=== PATIENT | male | born 1935 | race Caucasian/White ===

== ENCOUNTER → 2016-11-06 | Outpatient (CLI) | payer OTHER ==
[~2016-11-06] MED LIST: ACET-1256 PO; AMOX500C3 PO; ATOR10TA88 PO; CLC100 PO; CRD4 PO; CRDCD240 PO; GABA-112 PO; HYDR-5688 PO; LSX20 PO; LVNIS40 SQ; METO50TA16 PO; MULT-589 PO; SYMIN/8045 INH; TYL325X PO; ULT50X PO; WARF3TAB6 PO
== END | disposition home or self-care (01) ==
LOC: C.RDSM 14:08
PROVIDERS: ATTEND Physical Medicine & Rehabilitation Sports Medicine
DX: M17.11 Unilateral primary osteoarthritis, right knee (principal)

== ENCOUNTER 2016-12-31 05:06 | Inpatient (IN) | payer OTHER ==
[2016-12-05 15:10] VITALS: BMI 40.0
--- NOTE | 2016-12-05 15:56 | PAT Medication Instructions ---
Service Date Dec 05, 2016. Current Home Medication List Acetaminophen (Tylenol), 1,000 MG PO BID Amoxicillin (Amoxil), 2,000 MG PO UD Atorvastatin (Lipitor), 10 MG PO QAM Budesonide/Formoterol Fumarate (Symbicort 80/4.5 Inhaler), 2 PUFFS INH QAM Diltiazem Hcl Cd (Cardizem Cd *), 240 MG PO QAM Doxazosin Mesylate (Cardura *), 4 MG PO QAM Furosemide (Lasix *), 20 MG PO QAM Gabapentin (Neurontin), 50 MG PO BID Metoprolol Tartrate (Lopressor) (Lopressor), 75 MG PO BID Warfarin Sod (Jantoven), 3 MG PO Q2D Warfarin Sod (Jantoven), 1.5 MG PO Q2D Medication Instructions For Your Scheduled Surgery Amoxicillin (Amoxil), 2,000 MG PO UD (takes only before dental procedures) Warfarin Sod (Jantoven) (check with [facility] instructions) - Hold the following medications the morning of surgery: Furosemide (Lasix *), 20 MG PO QAM - Take the following medications the morning of surgery with a sip of water: Metoprolol Tartrate (Lopressor) (Lopressor), 75 MG PO BID Gabapentin (Neurontin), 50 MG PO BID Atorvastatin (Lipitor), 10 MG PO QAM Budesonide/Formoterol Fumarate (Symbicort 80/4.5 Inhaler), 2 PUFFS INH QAM Diltiazem Hcl Cd (Cardizem Cd *), 240 MG PO QAM Doxazosin Mesylate (Cardura *), 4 MG PO QAM Acetaminophen (Tylenol), 1,000 MG PO BID (if needed) - Take the following medications as scheduled the night before surgery: Metoprolol Tartrate (Lopressor) (Lopressor), 75 MG PO BID Gabapentin (Neurontin), 50 MG PO BID Acetaminophen (Tylenol), 1,000 MG PO BID (if needed) If you have any questions please call us at [phone] or [phone] ( [place]) or [phone]
--- NOTE | 2016-12-05 16:34 | DIAGNOSTIC IMAGING REPORT ---
CHEST PREADMISSION(PA/LAT) HISTORY: Preop. COMPARISON: Chest 06/13/2014. FINDINGS: The lungs are clear. Cardiac silhouette is normal in size. No pleural effusions. No pneumothorax. IMPRESSION: No acute process. Electronically signed by: Jordan Carr M.D. 12/05/2016 4:32 PM Dictated Date/Time: 12/05/2016 4:31 PM
[2016-12-05 16:36] LABS: BASO % 0.2 %; BASO ABS # 0.01 K/uL (0-0.2); COMPLETE YES; HEMATOCRIT 33.9 % (42-52); IG% 0.2 %; LYMPH % 21.6 %; LYMPH ABS # 0.87 K/uL (1.2-3.4); MEAN CELL VOLUME 98.5 fL (80-100); MEAN CORPUSCULAR HEMOGLOBIN 31.7 pg (25-34); MEAN CORPUSCULAR HGB CONC 32.2 g/dl (32-36); MEAN PLATELET VOLUME 9.6 fL (7.4-10.4); MONO % 12.2 %; NEUT % 61.8 %; PLATELET COUNT 151 K/uL (130-400); RED BLOOD COUNT 3.44 M/uL (4.7-6.1); WHITE BLOOD COUNT 4.02 K/uL (4.8-10.8)
[2016-12-05 16:42] LABS: INR 2.1 (0.9-1.1); PARTIAL THROMBOPLASTIN RATIO 1.3; PROTHROMBIN TIME (PATIENT) 23.3 SECONDS (9.0-12.0)
[2016-12-05 17:10] LABS: ALT/SGPT 21 U/L (12-78); AST/SGOT 16 U/L (15-37); BLOOD UREA NITROGEN 29 mg/dl (7-18); BUN/CREATININE RATIO 19.4 (10-20); CARBON DIOXIDE 30 mmol/L (21-32); CHLORIDE 110 mmol/L (98-107); GLUCOSE 92 mg/dl (70-99); POTASSIUM 4.6 mmol/L (3.5-5.1); SODIUM 143 mmol/L (136-145)
[2016-12-05 17:12] LABS: ALB/GLOB RATIO 1.1 (0.9-2); ALKALINE PHOSPHATASE 66 U/L (45-117)
--- NOTE | 2016-12-06 10:32 | HISTORY & PHYSICAL EXAMINATION ---
DATE OF ADMISSION: 12/31/2016 PREOPERATIVE DIAGNOSIS: Knee pain. HISTORY OF PRESENT ILLNESS: This 81-year-old male presents to clinic today for his preoperative history and physical. The patient complains of 2-3 year history of persistent right knee pain. Pain increases with ambulation. The patient states that at this point, he has to use a cane when ambulating. He states that he has failed conservative treatment with steroid injections and viscosupplementation. The patient also states he noticed bloody appearance of his right lower extremity. The patient denies numbness, tingling or swelling in the right lower extremity. He also denies chest pain, shortness breath, fever, chills, sweats, nausea, vomiting or diarrhea at this time. PAST SURGICAL HISTORY: Left total knee arthroplasty, tonsillectomy/adenoidectomy, Mohs' procedure, multiple shave biopsies of skin, renal calculi removal with cystoscopy and bilateral cataract removal. PAST MEDICAL HISTORY: Atrial fibrillation, hyperlipidemia, hypertension, lymphoma, polycystic kidney disease, seborrheic keratosis, actinic keratosis, COPD, squamous cell carcinoma of the ear and multiple skin nevi. FAMILY HISTORY: Mother, hypertension and transient ischemic attacks. Father, pulmonary embolism. ALLERGIES: The patient has no known drug allergies. CURRENT MEDICATIONS: Amoxicillin 500 mg oral capsule 4 caps as indicated 1 hour prior to dental procedures, atorvastatin to have statin 10 mg oral tablet at bedtime, diltiazem hydrochloride CD 240 mg/24 hour oral capsule extended release 1 cap daily, doxazosin 4 mg oral tablet daily, furosemide 20 mg oral tablet 1 tab daily, metoprolol tartrate 50 mg oral tablet 1 tab 3 times daily, Symbicort unknown dosage inhaled in the morning, Tylenol 500 mg oral tablet 2 tabs by mouth 3 times daily, warfarin 3 mg oral tablet 1 tab daily and gabapentin 50 mg oral capsule 1 cap twice daily. SOCIAL HISTORY: The patient states that he is a 1 pack per day smoker for 50 years, but quit smoking in 2005. He states he rarely consumes alcohol and denies any illicit drug use. PHYSICAL EXAMINATION: SKIN: The patient's skin is normal in appearance. No open skin lesions or discharge. EYES: Pupils are equal and react to light and accommodating. Extraocular movements are intact. EARS: Canals clear of cerumen. Tympanic membranes are intact bilaterally with no bulging or effusion. NOSE: Turbinates are pink and boggy in appearance with no appreciable rhinorrhea. THROAT: Posterior oropharynx is clear without signs of edema, erythema or exudate. CARDIOVASCULAR: The patient has an irregularly irregular rate and rhythm, but no appreciable murmurs or gallops. LUNGS: Auscultation of the lung mcgee reveals clear breath sounds throughout with no wheezing, rales or rhonchi. ABDOMEN: Obese, nondistended, and nontender with hypoactive bowel sounds. EXTREMITIES: Right knee: The patient is able to extend 80 degrees and flex to 124 degrees. He has mild crepitation at passive range of motion of the knee joint. He experiences a medial joint line tenderness upon palpation with the knee placed in a flexed position. The patient's right patella was unable manipulated due to arthritic changes within the patellofemoral joint. The patient has no edema, erythema, ecchymosis, warmth or palpable knee deformity. No varus or valgus laxity. Negative AP drawer sign. Negative Nay test. He does have an obvious varus deformity of the right knee joint. Otherwise, right calf is soft, supple, and nontender to palpation. He experiences no referred knee pain with dorsi and plantar flexion of the right foot actively and passively against resistance. The patient is neurovascularly intact in the right lower extremity. Peripheral pulses are palpable. Cap refill is brisk. All other extremities are normal in appearance with appropriate range of motion and strength. NEUROLOGICAL: Cranial nerves II-XII are intact with no motor or sensory deficits. PSYCHOLOGICAL/GENERAL: The patient is alert and oriented x3 with proper grooming and hygiene. DIAGNOSIS: Right knee osteoarthritis. PROCEDURE: Right total knee arthroplasty. RADIOGRAPHIC IMAGING: Standing views show marked joint space narrowing of the right medial compartment with an obvious varus deformity of the knee joint. PLAN: The patient is scheduled to undergo this procedure with Dr. Bob Gavin at the [facility] on 12/31/2016. Risks and complications of the surgery such as infection, bleeding, pain, scarring, nerve and blood vessel damage, weakness, wound problems, stiffness, incomplete relief of symptoms, heart attack, stroke, , hardware failure, loosening wear, fracture, blood clots, and embolism were explained to the patient. He understands and agrees and consent to perform the procedure was obtained. 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 The patient will be scheduled for his postoperative followup visit with Dr. Gavin on 01/14/2017 at 02:00 p.m. The patient states that at this time, he is not sure whether he will do home therapy or go to [facility] for rehabilitation. He states that most likely, he may request to go to [facility], but he will discuss this with the family service caseworker at the hospital after surgery. The patient states that he will continue his therapy for 4-6 weeks in our clinic. The patient states that he will bring a walker with him, which he used after his last knee replacement. He is advised that he will be provided with a prescription for pain medication upon discharge from the hospital along with a prescription for physical therapy and INR checks biweekly. The patient states that he is scheduled to meet with the Coumadin clinic to discuss holding the Coumadin prior to the procedure. The patient was advised that after the procedure, there is a possibility that he may need Lovenox injections to reach therapeutic range along with the use of his oral Coumadin. The patient was advised that he will also use ERNESTO stockings for 4-6 weeks after the procedure to prevent blood clots or embolus. The patient states he does not need a handicap placard for scar because he already has one. He understands that he will need to take antibiotics prior to any type of dental procedure cleaning. The patient verbalized understanding of all information provided at today's visit and the care he has received. He states that he will obtain the necessary preoperative testing prior to his preanesthesia clearance appointment set for 02:30 p.m. at the hospital this afternoon. AUDI
[~2016-12-31] VITALS: Ht 167.6 cm; Wt 111.8 kg
[2016-12-31] VITALS (9 sets, daily range): BP systolic 115–153; BP diastolic 73–92; PULSE 70–79; TEMP 36.3–36.8; O2SAT 92–97; Ht 167.6 cm; Wt 111.8 kg
[~2016-12-31 05:06] MED LIST changes: +ATOR10TA82 PO; -ATOR10TA88 PO; -CLC100 PO; -HYDR-5688 PO; -LVNIS40 SQ; -MULT-589 PO; -TYL325X PO; -ULT50X PO
[2016-12-31] MEDS ORDERED: LACTATED RINGER'S 1000ML 1,000 ML IV SCH (06:00)
[2016-12-31] MEDS ORDERED: CLONIDINE HCL 0.1 MG/24 HR TRANSDERM SYS TD SCH (06:00)
[2016-12-31] MEDS ORDERED: OXYCODONE HCL 10 MG TABCR (OXYCONTIN) PO SCH (06:00)
[2016-12-31] MEDS ORDERED: CEFAZOLIN 2000 MG/60 ML D5W 60 ML IV SCH (06:00)
[2016-12-31] MEDS ORDERED: ROPIVACAINE 5MG/ML 30 ML 100 MG, MoRPHine SULFATE 4 MG, EpINEphrine INJ 1MG/ML AMP 0.2 ... INFIL SCH ×4 (06:00)
[2016-12-31] MEDS ORDERED: TRAMADOL HCL 50 MG TAB PO SCH (06:00)
[2016-12-31] MEDS ORDERED: ACETAMINOPHEN 500 MG TAB PO SCH (06:00)
[2016-12-31] MEDS ORDERED: LACTATED RINGER'S 1000ML IV SCH (06:00)
[2016-12-31] MEDS ORDERED: GABAPENTIN 300 MG CAP PO SCH (06:00)
[2016-12-31] MEDS ORDERED: DEXAMETHASONE 4 MG TAB PO SCH (06:00)
[2016-12-31] MEDS ORDERED: BUPIVACAINE LIPOSOME 266 MG, BUPIVACAINE/EPINEPHRINE INJ 50 ML, SODIUM CHLORIDE 0.9% PF... INFIL SCH ×3 (06:00)
[2016-12-31] MEDS ORDERED: CeleBREX 200 MG CAP PO SCH ×2 (06:00→21:00)
[2016-12-31 06:19] LABS: INR 1.1 (0.9-1.1)
[2016-12-31] MEDS ORDERED: MIDAZOLAM HCL 1 MG/ML 2ML VIAL ONE (06:19)
[2016-12-31] MEDS ORDERED: PROPOFOL IV EMULSION 10 MG/ML 20 ML VIAL IV ONE ×5 (06:19→09:20)
[2016-12-31] MEDS ORDERED: LIDOCAINE HCL 2% 2 ML VIAL (20MG/ML) ONE (06:19)
[2016-12-31] MEDS ORDERED: BUPIVACAINE 0.5 % 5 MG/1 ML PF 10ML VIAL ONE (06:24)
[2016-12-31] MEDS ORDERED: ROPIVACAINE 0.5% 5 MG/ML 30 ML VIAL ONE (06:24)
--- NOTE | 2016-12-31 06:35 | History & Physical Bridge Note ---
H&P Re-Evaluation Bridge Note: I have examined the patient, reviewed the History & Physical and in the interval since the performance of the History & Physical I have noted the following changes of clinical significance: No changes noted
[2016-12-31] MEDS ORDERED: BUPIVACAINE/EPINEPHRINE 0.25% 1:200,000 30 ML VIAL ONE (06:46)
[2016-12-31] MEDS ORDERED: BUPIVACAINE LIPOSOME 1/3% 266 MG/20 ML VIAL INFIL ONE (06:46)
[2016-12-31] MEDS ORDERED: SODIUM CHLORIDE 0.9% PF 50 ML VIAL ONE (06:46)
[2016-12-31] MEDS ORDERED: BACITRACIN 50000 UNIT VIAL ONE (06:46)
[2016-12-31] MEDS: TRANEXAMIC ACID INJ 1,000 MG in SODIUM CHLORIDE 0.9% 100ML 100 ML IV SCH ×2 (06:49→11:57)
[2016-12-31] MEDS ORDERED: POVIDONE-IODINE OP SOLN 30 ML BTL ONE (06:56)
[2016-12-31] MEDS ORDERED: ORTHO JOINT ANESTHETIC ONE (06:58)
[2016-12-31] MEDS ORDERED: METOPROLOL TARTRATE 1 MG/ML VIAL ONE (07:37)
[2016-12-31] MEDS ORDERED: ONDANSETRON INJ 2 MG/ML 2 ML VIAL IV PRN ×2 (08:00→10:00)
[2016-12-31] MEDS ORDERED: PHENYLEPHRINE 100MCG/ML 5ML SYR IV PRN (08:00)
[2016-12-31] MEDS ORDERED: ATROPINE SULFATE 0.1 MG/ML 5ML SYR IV PRN (08:00)
[2016-12-31] MEDS ORDERED: EpHEDrine SULFATE INJ 50 MG/ML AMP IV PRN (08:00)
[2016-12-31] MEDS ORDERED: HYDROmorphone INJ 0.5 MG/0.5 ML SYR IV PRN (08:00)
--- NOTE | 2016-12-31 09:55 | [facility] Post Operative Brief Note ---
Immediate Operative Summary Operative Date Dec 31, 2016. Pre-Operative Diagnosis Right Knee Osteoarthritis Post-Operative Diagnosis Right Knee Osteoarthritis Procedure(s) Performed Right Total Knee Arthroplasty Surgeon Dr. Bob Gavin Pickle Water Pump Operator Surgeon(s) Sanjuanita Shanks PA-C Estimated Blood Loss 100ML Findings medial compartment arthritis right knee Specimens A. Right Knee Bone and Tissue Drains 0 Anesthesia spinal with sedation and block Complication(s) None Disposition Recovery Room / PACU
[2016-12-31] MEDS ORDERED: SOD PHOSPHATE/SOD BIPHOSPHATE ENEMA 132 ML BTL PR PRN (10:00)
[2016-12-31] MEDS ORDERED: TAMSULOSIN HCL 0.4 MG CAP PO PRN (10:00)
[2016-12-31] MEDS ORDERED: MoRPHine SULFATE 2 MG/ML CARP IV PRN (10:00)
[2016-12-31] MEDS ORDERED: KETOROLAC TROMETHAMINE 30 MG/ML VIAL IV. SCH (10:00)
[2016-12-31] MEDS ORDERED: MAGNESIUM HYDROXIDE SUSP 30 ML UDC PO PRN (10:00)
[2016-12-31] MEDS ORDERED: BISACODYL 10 MG SUPP PR PRN (10:00)
[2016-12-31] MEDS ORDERED: TRAMADOL HCL 50 MG TAB PO PRN (10:00)
[2016-12-31] MEDS ORDERED: OXYCODONE HCL IR 5 MG TAB (IMMEDIATE RELEASE) PO PRN (10:00)
--- NOTE | 2016-12-31 10:10 | [facility] Operative Report ---
Operative Report Operative Date Dec 31, 2016. Pre-Operative Diagnosis Right Knee Osteoarthritis Post-Operative Diagnosis Right knee osteoarthritis Procedure(s) Performed Right Total knee replacement Surgeon Dr. Bob Gavin Risk Lead Surgeon(s) Sanjuanita Shanks PA-C Estimated Blood Loss 100ML Findings DJD right knee Specimens A. Right Knee Bone and Tissue Drains 0 Anesthesia spinal with sedation and block Complication(s) None Disposition Recovery Room / PACU (stable) Indications Patient is a 81 year old male, with complaints of worsening right knee pain, failed conservative treatment. X-rays obtained, found to have end stage DJD right knee. Surgery recommended. Risks/complications discussed, informed consent obtained. Description of Procedure Patient was taken to the operating room, placed under general anesthesia, given 2gm IV Ancef for surgical prophylaxis. Time out performed, prepped and draped in routine sterile fashion. I was present the entire case, please see Dr. Gavin's operative report for further details. Patient was awakened and taken to the recovery room in stable condition. I attest to the content of the Intraoperative Record and any orders documented therein. Any exceptions are noted below.
--- NOTE | 2016-12-31 11:02 | DIAGNOSTIC IMAGING REPORT ---
RIGHT KNEE 1 OR 2 VIEWS ROUTINE CLINICAL HISTORY: AP/LATERAL IN PACU RIGHT KNEE Right right knee COMPARISON: None. DISCUSSION: Evidence for a total right knee arthroplasty. Good contact between prosthetic and underlying bone. Expected postoperative soft tissue change. IMPRESSION: Anatomic alignment status post total right knee arthroplasty. Electronically signed by: Warner Marcum M.D. 12/31/2016 10:59 AM Dictated Date/Time: 12/31/2016 10:59 AM
--- NOTE | 2016-12-31 11:16 | Anesthesiology Progress Note ---
Anesthesia Post Op Note Date & Time Dec 31, 2016 at 11:16 Vital Signs Pain Intensity: 0 Vital Signs Past 12 Hours Date Time Temp Pulse Resp B/P Pulse Ox O2 Delivery O2 Flow Rate FiO2 12/31/16 10:30 36.0 79 13 118/75 96 Nasal Cannula 2 12/31/16 10:20 72 17 122/57 95 Nasal Cannula 2 12/31/16 10:10 76 18 131/87 95 Nasal Cannula 2 12/31/16 10:00 36.0 82 19 191/133 95 Nasal Cannula 2 12/31/16 05:55 36.6 70 20 147/85 97 Room Air Notes Mental Status: alert / awake / arousable, participated in evaluation Pt Amnestic to Procedure: Yes Nausea / Vomiting: adequately controlled Pain: adequately controlled Airway Patency, RR, SpO2: stable & adequate BP & HR: stable & adequate Hydration State: stable & adequate Anesthetic Complications: no major complications apparent
--- NOTE | 2016-12-31 11:55 | Medical Consult ---
Consultation Date of Consultation: Dec 31, 2016. Attending Physician: Bob Gavin M.D. Reason for Consultation: Medical Management History of Present Illness Mr. Kauffman is a 81 y/o male with PMHx of Persistent Atrial Fibrillation, Polycystic Kidney Disease with CKD, HTN, Non-Hodgkins Lymphoma (off treatment), and COPD who is S/P R TKA on 12/[address] Gavin. Pain at R knee is currently increasing and is awaiting pain medication at this time. Verbalizes no other complaints at this time. He reports good control of his chronic conditions with current medication regimen. No acute exacerbations of COPD. Past Medical/Surgical History Medical Problems: (1) Atrial fibrillation (2) Benign hypertension (3) Chronic obstructive lung disease (4) Chronic osteoarthritis (5) Follicular lymphoma (6) Injury of ankle (7) left knee replacement (8) Polycystic kidney disease, adult type (9) Right knee DJD Family History Hypertension MOTHER Pulmonary Embolism FATHER Transient Ischemic Attack MOTHER Social History Smoking Status: Former Smoker Smokeless Tobacco Use: No Alcohol Use: none Drug Use: none Marital Status: Housing Status: lives with family Occupation Status: retired Allergies Coded Allergies: No Known Allergies (Verified , 12/31/16) Current Inpatient Medications Current Inpatient Medications Medications (Trade) Dose Ordered Sig/Teresita Route Start Time Stop Time Status Last Admin Dose Admin Lactated Ringer's 1,000 ml @ 15 mls/hr Q24H IV 12/31/16 06:00 01/01/17 05:59 12/31/16 05:55 15 MLS/HR Lactated Ringer's 1,000 ml @ 60 mls/hr [id number] IV 12/31/16 06:00 12/31/16 22:39 Cefazolin Sodium (Ancef 2000mg/60 ml D5W) 60 ml @ 100 mls/hr PREOP IV 12/31/16 06:00 12/31/16 18:00 12/31/16 07:04 100 MLS/HR Acetaminophen (Tylenol Tab) 1,000 mg PREOP PO 12/31/16 06:00 12/31/16 18:00 Celecoxib (CeleBREX CAP) 200 mg PREOP PO 12/31/16 06:00 12/31/16 18:00 12/31/16 06:19 200 MG Dexamethasone (Decadron Tab) 8 mg PREOP PO 12/31/16 06:00 12/31/16 18:00 12/31/16 06:20 8 MG Gabapentin (Neurontin Cap) 300 mg PREOP PO 12/31/16 06:00 12/31/16 18:00 Oxycodone HCl (Oxycontin Tab) 10 mg PREOP PO 12/31/16 06:00 12/31/16 18:00 12/31/16 06:20 10 MG Clonidine HCl ([id number] 0.1mg/24hr Patch) 1 patch PREOP TD 12/31/16 06:00 12/31/16 18:00 12/31/16 06:30 1 PATCH Miscellaneous 1 ea 1 ea Q72H N/A 01/02/17 06:00 01/02/17 06:01 Tranexamic Acid/ Sodium Chloride (Cyklokapron Inj/ Nss 100ml) 110 ml @ 660 mls/hr TODAY@06,0630 IV 12/31/16 06:00 12/31/16 18:00 12/31/16 06:49 660 MLS/HR Tramadol HCl 50 mg 50 mg PREOP PO 12/31/16 06:00 12/31/16 18:00 12/31/16 06:20 50 MG Ropivacaine/ Morphine Sulfate/ Epinephrine HCl/ Sodium Chloride/ Syringe (Naropin Inj 5MG/ Ml 30ML/MoRPHine SULFATE/ EpINEphrine INJ 1MG/ML AMP/VIAL/ Sodium Chloride 0.9% Inj/Syringe) 30.4667 ml @ 0 mls/hr PREOP INFIL 12/31/16 06:00 12/31/16 15:00 12/31/16 08:22 30.4667 MLS/HR Hydromorphone HCl (Dilaudid Inj) 0.5 mg Q5M PRN IV 12/31/16 08:00 12/31/16 13:00 Ondansetron HCl (Zofran Inj) 4 mg ONE PRN IV 12/31/16 08:00 12/31/16 13:00 Ephedrine Sulfate (EpHEDrine SULFATE INJ) 5 mg Q5M PRN IV 12/31/16 08:00 12/31/16 13:00 Atropine Sulfate (Atropine Sulfate 0.1MG/Ml Inj) 0.5 mg Q1M PRN IV 12/31/16 08:00 12/31/16 13:00 Phenylephrine HCl 100 mcg 100 mcg Q5M PRN IV 12/31/16 08:00 12/31/16 13:00 Potassium Chloride/Dextrose/ Sod Cl 1,000 ml @ 100 mls/hr Q10H IV 12/31/16 09:57 01/01/17 09:56 UNV Cefazolin Sodium/ Dextrose (Ancef Iv/D5 50ml) 60 ml @ 100 mls/hr Q8H IV 12/31/16 10:00 12/31/16 18:35 UNV Oxycodone HCl (Roxicodone Immediate Rel Tab) 1 TABLET FOR PAIN RATING... Q4H PRN PO 12/31/16 10:00 01/14/17 09:59 UNV Morphine Sulfate (MoRPHine SULFATE INJ) 2 mg Q2H PRN IV 12/31/16 10:00 01/14/17 09:59 UNV Acetaminophen (Tylenol Tab) 650 mg Q6H PRN PO 12/31/16 10:00 01/30/17 09:59 UNV Magnesium Hydroxide (Milk Of Magnesia Susp) 30 ml Q6H PRN PO 12/31/16 10:00 01/30/17 09:59 UNV Bisacodyl (Dulcolax Supp) 10 mg DAILY PRN MD 12/31/16 10:00 01/30/17 09:59 UNV Sodium Biphosphate/ Sodium Phosphate (Fleet Enema) 132 ml DAILY PRN MD 12/31/16 10:00 01/30/17 09:59 UNV Docusate Sodium (coLACE CAP) 100 mg BID PO 12/31/16 21:00 01/30/17 20:59 UNV Multivitamins (Multivitamin Tab) 1 tab QAM PO 01/01/17 09:00 01/31/17 08:59 UNV Ondansetron HCl (Zofran Inj) 4 mg Q6H PRN IV 12/31/16 10:00 01/30/17 09:59 UNV Pantoprazole Sodium (Protonix Tab) 40 mg QAM PO 01/01/17 09:00 01/31/17 08:59 UNV Tamsulosin HCl (Flomax Cap) 0.4 mg QAM PRN PO 12/31/16 10:00 01/30/17 09:59 UNV Tramadol HCl (Ultram Tab) 1 tablet for pain rating... Q4H PRN PO 12/31/16 10:00 01/30/17 09:59 UNV Dexamethasone (Decadron Tab) 8 mg ONE PO 01/01/17 07:30 01/01/17 07:31 UNV Warfarin Sodium (Coumadin Tab) 6 mg TODAY PO 12/31/16 16:00 01/30/17 15:59 UNV Atorvastatin Calcium (Lipitor Tab) 10 mg QAM PO 01/01/17 09:00 01/31/17 08:59 UNV Budesonide/ Formoterol Fumarate (Symbicort 80/ 4.5 Inh) 2 puffs QAM INH 01/01/17 09:00 01/31/17 08:59 UNV Diltiazem HCl (Cardizem Cd Cap) 240 mg QAM PO 01/01/17 09:00 01/31/17 08:59 UNV Doxazosin Mesylate (Cardura Tab) 4 mg QAM PO 01/01/17 09:00 01/31/17 08:59 UNV Furosemide (Lasix Tab) 20 mg QAM PO 01/01/17 09:00 01/31/17 08:59 UNV Gabapentin (Neurontin Cap) 100 mg BID PO 12/31/16 21:00 01/30/17 20:59 UNV Metoprolol Tartrate (Lopressor Tab) 75 mg BID PO 12/31/16 21:00 01/30/17 20:59 UNV Review of Systems Constitutional: No chills, No fever Eyes: No worsening of vision ENT: No nasal symptoms, No sore throat, No trouble swallowing Respiratory: No cough, No shortness of breath Cardiovascular: No chest pain Abdomen: No constipation, No diarrhea, No nausea, No pain, No vomiting Musculoskeletal: No calf pain, No swelling Genitourinary - Male: No dysuria Neurologic: No numbness/tingling Hematologic / Lymphatic: No abnormal bleeding/bruising, No clotting problems Integumentary: No new/changing skin lesions, No rash Physical Exam Date Time Temp Pulse Resp B/P Pulse Ox O2 Delivery O2 Flow Rate FiO2 12/31/16 11:17 36.3 78 16 125/78 96 Nasal Cannula 2.0 12/31/16 10:30 36.0 79 13 118/75 96 Nasal Cannula 2 12/31/16 10:20 72 17 122/57 95 Nasal Cannula 2 12/31/16 10:10 76 18 131/87 95 Nasal Cannula 2 12/31/16 10:00 36.0 82 19 191/133 95 Nasal Cannula 2 12/31/16 05:55 36.6 70 20 147/85 97 Room Air General Appearance: WD/WN, no apparent distress Head: normocephalic, atraumatic Eyes: sclerae normal ENT: hearing grossly normal Neck: supple, no JVD, trachea midline Respiratory/Chest: lungs clear, no respiratory distress, no accessory muscle use, + decreased breath sounds Cardiovascular: no gallop, + systolic murmur, + irregularly irregular Abdomen/GI: normal bowel sounds, non tender, soft Back: no CVA tenderness Extremities/Musculoskelatal: no calf tenderness, no pedal edema, + pertinent finding (rachelle bandage of R knee clean/dry/intact; immediate cap refill; neg motor /sensory deficits) Neurologic/Psych: alert, oriented x 3 Skin: normal color, warm/dry Laboratory Results Last 24 Hours Test 12/31/16 05:38 Prothrombin Time 12.0 SECONDS Prothromb Time International Ratio 1.1 Activated Partial Thromboplast Time 26.8 SECONDS Partial Thromboplastin Ratio 1.0 Assessment & Plan Mr. Kauffman is a 81 y/o male with PMHx of Persistent Atrial Fibrillation, Polycystic Kidney Disease with CKD, HTN, Non-Hodgkins Lymphoma (off treatment), and COPD who is S/P R TKA on 12/[address] Gavin. 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 81 y/o male with PMHx of Persistent Atrial Fibrillation, Polycystic Kidney Disease with CKD, HTN, Non-Hodgkins Lymphoma ( off treatment), and COPD who is S/P R TKA on 12/21. Post- op patient has mild leg pain and nasuea. Denies any chest pain, SOB. Vitals- reviewed GEN- NAD CVS- RRR RESP- CTA ABD- + BS, NTND EXT- no c/c/e Labs- reviewed 81 y/o male with PMHx of Persistent Atrial Fibrillation, Polycystic Kidney Disease with CKD, HTN, Non-Hodgkins Lymphoma (off treatment), and COPD who is S/ P R TKA on 12/31 POD#0 s/p R TKA- pain control/ PT/OT afibb- contine coumadin/diltiazem COPD- continue Symbicort/nebs prn PCKD- noted
[2016-12-31] MEDS: D5W AND 1/2NSS + 20MEQ KCL 1,000 ML IV SCH ×2 (12:26→21:53)
[2016-12-31] MEDS: CEFAZOLIN IV 2,000 MG in DEXTROSE 5% 50ML 50 ML IV SCH ×2 (13:52→22:02)
--- NOTE | 2016-12-31 14:24 | OPERATIVE REPORT ---
DATE OF OPERATION: 12/31/2016 PREOPERATIVE DIAGNOSIS: Right knee osteoarthritis. POSTOPERATIVE DIAGNOSIS: Same. PROCEDURE: Cemented right total knee arthroplasty. SURGEON: Dr. Gavin. TRIM TECHNICIAN: Sanjuanita Shanks PA-C. No resident or fellow available. ANESTHESIA: Spinal with sedation and peripheral nerve block. INDICATIONS FOR PROCEDURE: The patient is a 81-year-old male with right knee pain refractory to nonsurgical methods of management. He is status post a successful contralateral knee replacement. PROCEDURE IN DETAIL: Informed consent was obtained. The patient identified as Jyothi Kauffman. He identified the operative site as the right knee. I marked it with my initials. A preop surgical timeout was performed. A preop dose of IV antibiotics was given. He was taken to the operating room, positioned supine on the operating room table. No Lopez was inserted. A padded bump was used under the hip and also under the leg for positioning. A tourniquet was applied to the thigh. The right leg was prepped and draped including the foot in the usual sterile fashion. The exam under anesthesia showed a perhaps 3- to -5-degree flexion contracture and flexion of the knee to 125 degrees. There was no effusion, trace varus alignment. He received the preop doses of antibiotics and tranexamic acid. DVT prophylaxis intraoperatively with foot pumps, postoperatively he will resume his Coumadin. He has had preoperative medical evaluation and has also had consultation with the [facility]. As he is on chronic Coumadin therapy, his INR is within normal limits prior to surgery. The limb was exsanguinated with the Esmarch, tourniquet inflated to 250 mmHg. A midline incision was made approximately 15-20 cm in length. A medial flap was elevated, followed by a medial parapatellar arthrotomy. The soft tissue on the anterior aspect of the distal femur was resected. The synovial reflection in the lateral gutter was released. The retropatellar fat pad was resected and a medial release was performed. The patella showed grade 2 and 3 change. The lateral compartment was essentially normal. The cruciates were intact. The medial compartment showed grade 3 and 4 change with areas about the size of quarter of complete cartilage loss. The medial meniscus was partially deficient and degeneratively torn. The meniscal remnants and cruciates were removed. The knee was subluxated. I then drilled a fighter pilot hole into the proximal tibia, in line with the shaft of the tibia, just anterior to and between the tibial spines. The intramedullary alignment ros was inserted. The 0 degree cutting block was aligned with medial third of the tibial tubercle, pinned in place and set to resect 10 off of the high side and 4 off of the low side medially. The extramedullary alignment ros was utilized to confirm slope and alignment. There was a trace bit of varus alignment which was correctable with twisting of the guide. The cut was then made and sized to a 5. Marginal osteophytes were removed and the lateral tibial plateau was defined. The patellar tendon was protected. The fighter pilot hole was drilled into the distal femur. My initial hole was too far lateral and I switched this out to a hole more directly above the PCL, which was in line with the shaft of the femur. The alignment ros was inserted, followed by the cutting guide, set 7 degrees right knee, 12 mm thick cut based upon preoperative templating. The guide was pinned into place and the cut was made. The extension gap was a symmetric 8. I went back and recut 2 more millimeters off the tibia and ended up with a symmetric 10 mm extension gap. I also performed more releases medially to relieve medial tightness and create a symmetric extension gap. Whitesides line and the transepicondylar axis were marked out and the distal femoral sizing guide was applied. This was sized to a 5. The external rotation drill holes were made, were parallel to transepicondylar axis. The size 5 block was applied and the collateral ligaments were protected. The cuts were made and the flexion gap was a symmetric 10. There was a millimeter or two of laxity laterally at 90. The box cutting guide was applied, lateralized and this cut was made and the trial component was fitted nicely to the femur. The tibia was exposed. The size 5 was aligned to the lateral margin of the tibia, exposing some posteromedial bone. Some medial exposed bone was removed to effectively lengthen the MCL. The tibia was pinned into place and the keel was drilled and punched. Trialing with a 10 poly showed full extension with intact stability. There was trace MCL laxity at 30 degrees, 1+ LCL laxity at 30 degrees and trace LCL laxity at 90. The patella was measured to be 22.5 mm in thickness. The guide was set to preserve 14 mm of bone. The cut was made and sized to a 38 patella. The paddle was aligned and the lug holes were drilled. Some marginal osteophyte medially and cartilage was removed. The patella tracked fine with no-hands technique. The knee was copiously irrigated with sterile saline and the canals were plugged with bone. There were no posterior osteophytes noted on inspection. The soft tissues were kept moist repetitively throughout the operation. Two bags of Simplex P cement were mixed and no antibiotics. The components were then cemented in place, femur, tibia and patella. The knee was held in full extension with a trial spacer until the cement had hardened. Extraneous cement was removed as necessary. Cement was smeared on the posterior condyles. Trialing again was performed and the 10 mm polyethylene was of appropriate thickness and gave the aforementioned stability pattern. Composite patellar thickness was 23 mm and the patella tracked fine with no-hands technique after the tourniquet had been let down. The Orthojoint mix consisting of ropivacaine, morphine, and epinephrine 30 mL was injected into the back of the knee, the medial and lateral gutters and the skin and subcutaneous tissues. Betadine lavage was performed for 3-5 minutes while the cement was hardening. The trial spacer was removed and the posterior aspect of the knee was inspected and several fragments of cement were removed. The back of the knee was irrigated thoroughly to remove any cement fragments and final polyethylene was inserted. Patella tracking was excellent and the gravity assisted flexion with the extensor mechanism closed was approximately 120-125. The knee had full extension, was neutrally aligned. Meticulous hemostasis was performed after the tourniquet had been let down after 98 minutes of inflation. Irrigation done. The extensor mechanism was closed with interrupted #2 FiberWire above the equator of the patella and running and interrupted #1 Vicryl below. The skin was closed in layers with 0 and 2-0 Vicryl and clarissa on the skin. Xeroform, 4 x 4's, ABD, and a full length Jorje wrap. The patient will be sent to the floor with a knee immobilizer. The patient was awakened from anesthesia without difficulty and taken to recovery room in stable condition. The resected bone was sent for specimen. There were no complications. Counts were correct at the end of case. Blood loss was approximately 100 mL. The patient received a pre and postoperative dose of tranexamic acid. At the conclusion of the operation, I spoke to the patient's and informed them of my findings. Postoperative instructions were given. He will have a medicine consult and rehab per the total knee protocol. His Coumadin will be started per the recommendations of the Coumadin Clinic. Components inserted were the J\T\J PFC sigma rotating platform posterior stabilized knee, a size 5 10 mm thick rotating platform polyethylene insert, a 38 mm 3-peg oval dome patella, a size 5 tibia and a size 5 right posterior stabilized femur. I attest to the content of the Intraoperative Record and any orders documented therein. Any exceptio ns are noted below.
[2016-12-31] MEDS ORDERED: WARFARIN SOD 6 MG TAB PO ONE (16:00)
--- NOTE | 2016-12-31 18:35 | PROGRESS NOTE ---
DATE: 12/31/2016 HISTORY OF PRESENT ILLNESS: He is sitting in his bedside chair. Pain is well controlled. No other problems. Afebrile. Vital signs are stable. Some initial blood pressures were high, but he is back under control at this point. Urine output approximately 200 mL. X-rays of the knee show good positioning of the components and alignment of the knee without complication or fracture. 2+ posterior normal sensation. 5/5 ankle and toe plantar flexion and dorsiflexion strength. He is educated about the surgical findings and the plan is for routine postoperative care of his knee replacement. He will resume his Coumadin per the recommendations of the [facility], medicine consult, PT, OT.
[2016-12-31] MEDS: GABAPENTIN 100 MG CAP PO SCH (21:53)
[2016-12-31] MEDS: DOCUSATE SODIUM 100 MG CAP PO SCH (21:53)
[2016-12-31] MEDS: METOPROLOL TARTRATE 50 MG TAB PO SCH (22:26)
[2017-01-01 06:08] LABS: HEMATOCRIT 28.7 % (42-52); MEAN CELL VOLUME 95.7 fL (80-100); MEAN CORPUSCULAR HGB CONC 33.4 g/dl (32-36); MEAN PLATELET VOLUME 9.3 fL (7.4-10.4); PLATELET COUNT 139 K/uL (130-400); WHITE BLOOD COUNT 9.67 K/uL (4.8-10.8)
[2017-01-01 06:18] LABS: INR 1.1 (0.9-1.1); PROTHROMBIN TIME (PATIENT) 12.2 SECONDS (9.0-12.0)
[2017-01-01 06:25] LABS: BUN/CREATININE RATIO 23.9 (10-20); CREATININE 1.6 mg/dl (0.60-1.40); POTASSIUM 5.1 mmol/L (3.5-5.1)
--- NOTE | 2017-01-01 06:53 | Clinical Documentation Query ---
CLINICAL DOCUMENTATION QUERY Ms. CHOWDHURY, In your clinical opinion is this patient being managed for: ( x ) Chronic kidney disease, stage 3 - Will not be seeing this patient as I am just doing initial consults and admissions this week - Dr. Jazlyn Anders will be following this patient ( ) Other explanation of clinical findings (Please Explain) ( ) Unable to determine (Please Define) ( ) Need to Discuss ( ) Not Agree The medical record reflects the following clinical findings, treatment, and risk factors. Clinical Indicators:81 yo male presenting with R knee OA for R TKA. Noted in consult to have CKD due to polycystic kidney disease. GFR range of 35-47 over the past year. Treatment: monitor PRP's, Treat comorbid condintions. Risk Factors: A fib, HTN, COPD, HLD, Polycystic Kidney Disease Please clarify and document your clinical opinion in the progress notes and discharge summary. Terms such as "probable", "suspected", "likely", "questionable", "possible", or "still to be ruled out" are acceptable. IF IN AGREEMENT, YOU MUST DOCUMENT ABOVE DIAGNOSTIC STATEMENT IN DAILY PROGRESS NOTES AND DISCHARGE SUMMARY. This document is not part of the patient's record. Thank You, Vanessa Wagner, RN [phone]
[2017-01-01 07:22] VITALS: BP 145/84; PULSE 85; TEMP 36.7; O2SAT 94
[2017-01-01] MEDS ORDERED: DEXAMETHASONE 4 MG TAB PO SCH (07:30)
[2017-01-01] MEDS: METOPROLOL TARTRATE 50 MG TAB PO SCH ×2 (08:09→20:01)
[2017-01-01] MEDS: MULTIVITAMIN TAB PO SCH (08:10)
[2017-01-01] MEDS: FUROSEMIDE 20 MG TAB PO SCH (08:10)
[2017-01-01] MEDS: DILTIAZEM HCL 240 MG CAPCR PO SCH (08:10)
[2017-01-01] MEDS: ATORVASTATIN 10 MG TAB PO SCH (08:10)
[2017-01-01] MEDS: DOCUSATE SODIUM 100 MG CAP PO SCH ×2 (08:11→20:01)
[2017-01-01] MEDS: PANTOprazole SOD 40 MG TAB PO SCH (08:11)
[2017-01-01] MEDS: GABAPENTIN 100 MG CAP PO SCH ×2 (08:11→20:02)
[2017-01-01] MEDS: DOXAZosin MESYLATE TAB 4 MG TAB PO SCH (08:11)
[2017-01-01] MEDS: BUDESONIDE/FORMOTEROL FUMARATE 80/4.5 60 PUFFS/INHALER INH SCH (08:12)
[2017-01-01] MEDS: D5W AND 1/2NSS + 20MEQ KCL 1,000 ML IV SCH (08:13)
[2017-01-01] MEDS: ACETAMINOPHEN 325 MG TAB PO PRN ×2 (08:15→15:54)
--- NOTE | 2017-01-01 08:33 | Orthopedic Progress Note ---
Orthopedic Progress Note Date of Service Jan 01, 2017. Subjective Post OP Day: 1 Reports: feeling well, pain controlled w PO medications, Denies: SOB, calf pain , chest pain, complaints, light headedness, nausea / vomiting Additional Notes: Per nursing had some confusion this morning, oriented to person and place this morning. Denies pain. Has had little pain medication, thru the night. Going to get Tylenol now for pain. Objective calves soft nontender, N/V intact, capillary refill less than 2 sec., dressing C /D/I, A&O x3 (at this time), toes mobile Date Time Temp Pulse Resp B/P Pulse Ox O2 Delivery O2 Flow Rate FiO2 01/01/17 07:22 36.7 85 16 145/84 94 Room Air 12/31/16 23:50 Room Air 12/31/16 22:50 36.8 73 18 153/76 93 Room Air 12/31/16 19:37 36.5 75 18 127/78 93 Room Air 12/31/16 16:00 Room Air 12/31/16 15:14 36.3 79 17 122/73 92 Room Air 79 12/31/16 13:47 36.4 76 20 141/92 97 Nasal Cannula 2.0 12/31/16 12:50 36.4 77 18 115/73 97 Nasal Cannula 2.0 12/31/16 11:43 36.3 75 20 127/81 97 Nasal Cannula 2.0 12/31/16 11:17 36.3 78 16 125/78 96 Nasal Cannula 2.0 12/31/16 10:50 96 Nasal Cannula 2.0 12/31/16 10:50 96 Nasal Cannula 2.0 12/31/16 10:50 36.4 74 20 135/82 96 Nasal Cannula 2.0 12/31/16 10:30 36.0 79 13 118/75 96 Nasal Cannula 2 12/31/16 10:20 72 17 122/57 95 Nasal Cannula 2 12/31/16 10:10 76 18 131/87 95 Nasal Cannula 2 12/31/16 10:00 36.0 82 19 191/133 95 Nasal Cannula 2 Laboratory Results 24 Hours: Test 01/01/17 05:40 Hematocrit 28.7 % Hemoglobin 9.6 g/dL Prothromb Time International Ratio 1.1 Prothrombin Time 12.2 SECONDS Assessment & Plan Assessment: POD 1 Right Total Knee Replacement Plan: OOB PT/OT today. WBAT RLE Knee immobilizer until quad control Ice to knee as needed for pain/swelling Tolerating regular diet Coumadin restarted last evening, will order Coumadin 3mg as per coumadin clinic instructions this evening. Teds/Foot pumps Walker to assist with ambulation Patient would like to go home with outpatient PT - SS to see to determine definite plan. Will discuss findings with Dr. Gavin. Discharge Planning DVT Prophylaxis: TEDs, Coumadin Therapy: Physical Therapy
--- NOTE | 2017-01-01 08:55 | Anesthesiology Progress Note ---
Anesthesia Post Op Note Date & Time Jan 01, 2017 at 08:54 Vital Signs Vital Signs Past 12 Hours Date Time Temp Pulse Resp B/P Pulse Ox O2 Delivery O2 Flow Rate FiO2 01/01/17 07:22 36.7 85 16 145/84 94 Room Air 12/31/16 23:50 Room Air 12/31/16 22:50 36.8 73 18 153/76 93 Room Air Notes Mental Status: alert / awake / arousable, participated in evaluation Pt Amnestic to Procedure: Yes Nausea / Vomiting: adequately controlled Pain: adequately controlled Airway Patency, RR, SpO2: stable & adequate BP & HR: stable & adequate Hydration State: stable & adequate Neuraxial Anesthesia: sensory block resolved Anesthetic Complications: no major complications apparent
[2017-01-01 10:35] VITALS: BP 147/98; PULSE 88; TEMP 36.9; O2SAT 91
--- NOTE | 2017-01-01 13:12 | Hospitalist Progress Note ---
Hospitalist Progress Note Date of Service Jan 01, 2017. Subjective Pt evaluation today including: conversation w/ patient, physical exam, chart review, lab review, review of studies, review of inpatient medication list Patient had no acute issues overnight Constitutional: No fever Eyes: No worsening of vision ENT: No hearing loss Respiratory: No cough, No shortness of breath, No wheezing Cardiovascular: No PND, No chest pain, No edema Abdomen: No diarrhea, No pain, No vomiting Musculoskeletal: + joint pain Male : No dysuria Neurologic: No memory loss Objective Vital Signs Date Time Temp Pulse Resp B/P Pulse Ox O2 Delivery O2 Flow Rate FiO2 01/01/17 10:35 36.9 88 16 147/98 91 Room Air 01/01/17 07:22 36.7 85 16 145/84 94 Room Air 01/01/17 07:15 Room Air 12/31/16 23:50 Room Air 12/31/16 22:50 36.8 73 18 153/76 93 Room Air 12/31/16 19:37 36.5 75 18 127/78 93 Room Air 12/31/16 16:00 Room Air 12/31/16 15:14 36.3 79 17 122/73 92 Room Air 79 12/31/16 13:47 36.4 76 20 141/92 97 Nasal Cannula 2.0 Physical Exam General Appearance: WD/WN, no apparent distress Eyes: normal inspection ENT: normal ENT inspection Neck: supple Respiratory/Chest: chest non-tender, lungs clear Cardiovascular: regular rate, rhythm, no edema Abdomen: normal bowel sounds, non tender Extremities: normal range of motion, non-tender 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, no motor/sensory deficits, alert, oriented x 3 Skin: normal color, warm/dry Lymphatic: no adenopathy Laboratory Results Last 24 Hours Test 01/01/17 05:40 White Blood Count 9.67 K/uL Red Blood Count 3.00 M/uL Hemoglobin 9.6 g/dL Hematocrit 28.7 % Mean Corpuscular Volume 95.7 fL Mean Corpuscular Hemoglobin 32.0 pg Mean Corpuscular Hemoglobin Concent 33.4 g/dl RDW Standard Deviation 50.1 fL RDW Coefficient of Variation 14.4 % Platelet Count 139 K/uL Mean Platelet Volume 9.3 fL Prothrombin Time 12.2 SECONDS Prothromb Time International Ratio 1.1 Sodium Level 140 mmol/L Potassium Level 5.1 mmol/L Chloride Level 106 mmol/L Carbon Dioxide Level 26 mmol/L Anion Gap 8.0 mmol/L Blood Urea Nitrogen 38 mg/dl Creatinine 1.60 mg/dl Est Creatinine Clear Calc Drug Dose 43.9 ml/min Estimated GFR () 46.8 Estimated GFR (Non- 40.4 BUN/Creatinine Ratio 23.9 Random Glucose 146 mg/dl Calcium Level 8.5 mg/dl Assessment and Plan Mr. Kauffman is a 81 y/o male with PMHx of Persistent Atrial Fibrillation, Polycystic Kidney Disease with CKD, HTN, Non-Hodgkins Lymphoma (off treatment), and COPD who is S/P R TKA on 12/[address] Gavin. S/P R TKA: - Pain management - d/c IVF - PT/OT Persistent Atrial Fibrillation and HTN: STABLE WITH RATE CONTROL - Diltiazem 240 mg daily and Lopressor 75 mg BID - Lasix 20 mg daily - cont coumadin Stage 3 CKD 2/2 Polycystic Kidney Disease: - Baseline Cr 1.5-1.6 - continue to monitor COPD without Exacerbation: - Symbicort 2 puffs daily HLD: - Atorvastatin 10 mg daily DVT Prophylaxis: start lovenox
--- NOTE | 2017-01-01 13:26 | Clinical Documentation Query ---
CLINICAL DOCUMENTATION QUERY Dr. DEAL, In your clinical opinion is this patient being managed for: ( ) Chronic kidney disease, stage 3 ( ) Other explanation of clinical findings (Please Explain) ( ) Unable to determine (Please Define) ( ) Need to Discuss ( ) Not Agree The medical record reflects the following clinical findings, treatment, and risk factors. Clinical Indicators:81 yo male presenting with R knee OA for R TKA. Noted in consult to have CKD due to polycystic kidney disease. GFR range of 35-47 over the past year. Treatment: monitor PRP's, Treat comorbid condintions. Risk Factors: A fib, HTN, COPD, HLD, Polycystic Kidney Disease Please clarify and document your clinical opinion in the progress notes and discharge summary. Terms such as "probable", "suspected", "likely", "questionable", "possible", or "still to be ruled out" are acceptable. IF IN AGREEMENT, YOU MUST DOCUMENT ABOVE DIAGNOSTIC STATEMENT IN DAILY PROGRESS NOTES AND DISCHARGE SUMMARY. This document is not part of the patient's record. Thank You, Vanessa Wagner, JEROMY [phone]
[2017-01-01 14:36] LABS: CALCIUM 8.9 mg/dl (8.5-10.1)
[2017-01-01 15:21] VITALS: BP 147/88; PULSE 76; TEMP 36.7; O2SAT 97
[2017-01-01] MEDS ORDERED: WARFARIN SOD 3 MG TAB PO SCH (16:00)
--- NOTE | 2017-01-01 18:28 | PROGRESS NOTE ---
DATE: 01/01/2017 Jyothi is sitting in a chair. Pain appears to be well controlled. Staff and have voice concerns regarding confusion. He is alert to date, but not place or event. He is alert to person. He speaks appropriately, responds to questions appropriately, but does not specifically say that he was here for a knee replacement operation. Constantly moving and readjusting things and speaking extemporaneously or circuitously. PHYSICAL EXAMINATION: Afebrile, vital signs are stable. Urine output is put in as 200 mL; however, he just voided 100 and the nurse reports voided in toilet for at least 400 earlier. His distal neurovascular function is intact. He cannot do a straight leg raise but he has 5/5 ankle and toe plantar flexion and dorsiflexion strength. He has 5/5 strength in both upper extremities to shoulder, elbow and hand movements; similarly at the knee and ankle on the left side. Cranial nerves II-XII are intact. There is no facial drooping, asymmetry or muscular weakness. He reports intact sensation in all extremities. IMPRESSION: 1. Confusion, likely secondary to narcotics. 2. Right knee replacement. PLAN: He has a bed monitor and will require 1 on 1 with a bed change to closer area to the nurses' station. Spoke with the charge nurse. I think that his confusion is related to the stress of surgery, narcotic pain medications and time of day. We will reassess tomorrow. If things are not improving will consult neurology. In terms of disposition I have recommended he go to [facility] and I wrote an order for social work faculty member try to arrange that. There are no focal neural deficits. His urine output appears to be adequate. I see medicine has stopped his IV fluids. He has had a slight bump up in his BUN and creatinine. We will recheck H\T\H and PRP in the morning. He will start on some Lovenox for DVT prophylaxis and will get back on his Coumadin per the recommendations of the Coumadin Clinic.
[2017-01-01 19:59] VITALS: BP 175/99; PULSE 107
[2017-01-01 23:00] VITALS: BP 154/82; PULSE 98; TEMP 36.4; O2SAT 93
[2017-01-02 06:00] VITALS: BP 124/89; PULSE 98; TEMP 37.1; O2SAT 92
[2017-01-02 06:09] LABS: HEMATOCRIT 28.2 % (42-52)
[2017-01-02 06:15] LABS: INR 1.5 (0.9-1.1); PROTHROMBIN TIME (PATIENT) 15.9 SECONDS (9.0-12.0)
[2017-01-02 06:50] LABS: BUN/CREATININE RATIO 22.9 (10-20); CALCIUM 9.2 mg/dl (8.5-10.1); CREATININE 1.3 mg/dl (0.60-1.40); POTASSIUM 4.5 mmol/L (3.5-5.1)
--- NOTE | 2017-01-02 07:24 | Clinical Documentation Query ---
CLINICAL DOCUMENTATION QUERY Dr. MONTEIRO, In your clinical opinion is this patient being managed for: ( ) Encephalopathy likely due to narcotic analgesics ( ) Other explanation of clinical findings (Please Explain) ( ) Unable to determine (Please Define) ( ) Need to Discuss ( ) Not Agree The medical record reflects the following clinical findings, treatment, and risk factors. Clinical Indicators: Progress note on 01/01 indicates pt with oriented to person an date but not place or event. Confusion likely secondary to narcotics, stress of surgery, Treatment: monitor level of confusion, consider further consult with neurology if symptoms continue Risk Factors: narcotic analgesics, stress of surgery Please clarify and document your clinical opinion in the progress notes and discharge summary. Terms such as "probable", "suspected", "likely", "questionable", "possible", or "still to be ruled out" are acceptable. IF IN AGREEMENT, YOU MUST DOCUMENT ABOVE DIAGNOSTIC STATEMENT IN DAILY PROGRESS NOTES AND DISCHARGE SUMMARY. This document is not part of the patient's record. Thank You, Vanessa Wagner RN [phone]
[2017-01-02] MEDS: MULTIVITAMIN TAB PO SCH (08:28)
[2017-01-02] MEDS: BUDESONIDE/FORMOTEROL FUMARATE 80/4.5 60 PUFFS/INHALER INH SCH (08:28)
[2017-01-02] MEDS: GABAPENTIN 100 MG CAP PO SCH ×2 (08:29→20:56)
[2017-01-02] MEDS: ATORVASTATIN 10 MG TAB PO SCH (08:30)
[2017-01-02] MEDS: PANTOprazole SOD 40 MG TAB PO SCH (08:30)
[2017-01-02] MEDS: DOCUSATE SODIUM 100 MG CAP PO SCH ×2 (08:30→20:56)
[2017-01-02 08:33] VITALS: BP 152/82; PULSE 93
[2017-01-02] MEDS: DOXAZosin MESYLATE TAB 4 MG TAB PO SCH (08:34)
[2017-01-02] MEDS: DILTIAZEM HCL 240 MG CAPCR PO SCH (08:34)
[2017-01-02] MEDS: FUROSEMIDE 20 MG TAB PO SCH (08:34)
[2017-01-02] MEDS: METOPROLOL TARTRATE 50 MG TAB PO SCH ×2 (08:35→20:56)
--- NOTE | 2017-01-02 08:35 | Orthopedic Progress Note ---
Orthopedic Progress Note Date of Service Jan 02, 2017. Subjective Post OP Day: 2 Reports: feeling well, Denies: SOB, calf pain, chest pain, complaints, light headedness, nausea / vomiting Additional Notes: One on one in room, not as confused this morning. Looking at the newspaper. Objective calves soft nontender, N/V intact, capillary refill less than 2 sec., dressing C /D/I, incision C/D/I, A&O x3, toes mobile answers questions appropriately. wound looks very good. Date Time Temp Pulse Resp B/P Pulse Ox O2 Delivery O2 Flow Rate FiO2 01/02/17 06:00 37.1 98 16 124/89 92 Room Air 01/01/17 23:52 Room Air 01/01/17 23:00 36.4 98 20 154/82 93 Room Air 01/01/17 19:59 107 175/99 01/01/17 15:30 Room Air 01/01/17 15:21 36.7 76 16 147/88 97 Room Air 01/01/17 10:35 36.9 88 16 147/98 91 Room Air Laboratory Results 24 Hours: Test 01/02/17 05:30 Hematocrit 28.2 % Hemoglobin 9.6 g/dL Prothromb Time International Ratio 1.5 Prothrombin Time 15.9 SECONDS Assessment & Plan Assessment: POD 2 Right Total Knee Replacement Plan: OOB PT/OT today. WBAT RLE Knee immobilizer until quad control Ice to knee as needed for pain/swelling Tolerating regular diet Teds/Foot pumps Walker to assist with ambulation Spoke with SS. Due to confusion, they are looking at placement at SNF. They will speak with his . Will discuss findings with Dr. Gavin. Discharge Planning Discharge Planning: uncertain DVT Prophylaxis: TEDs, Coumadin Therapy: Physical Therapy
[2017-01-02] MEDS: ENOXAPARIN 40 MG/0.4 ML SYR SQ SCH (08:36)
[2017-01-02 15:09] VITALS: BP 143/82; PULSE 83; TEMP 36.7; O2SAT 95
--- NOTE | 2017-01-02 15:43 | Discharge Instructions ---
Discharge Instructions Date of Service Jan 02, 2017. Admission Reason for Admission: Right Knee Osteoarthritis Discharge Discharge Diagnosis / Problem: Right knee osteoarthritis; s/p Right TKA Discharge Goals Goal(s): Decrease discomfort, Improve function, Increase independence Activity Recommendations Activity Level: Up Ad Phoebe, Assistance Required (with walker) Therapies: Physical Therapy, Weight Bearing Status (WBAT RLE) Weightbearing Status: Right weightbearing (as tolerated) Shower/Bathe: may shower/bathe in 3 days . Additional Information Patient informed of condition: Yes Advance Directives: No DNR: No Level of Care: Acute Rehab Communicable Disease: No Prognosis: Stable Lopez Catheter: No Instructions / Follow-Up Instructions / Follow-Up New Medicine: * You will likely be taking one or more of these medications: 1. Coumadin (Warfarin) - YOu will be on you regular scheduled Coumadin alternating 3mg and 1.5mg daily. This should be managed by the [facility]madin Clinic. Do not take anti-inflammatory pills (Advil or Aleve) while on Coumadin. Aspirin, 81 mg is OK. 2. Percocet - Take, as directed, when you need it, every four to six hours to control your pain. 3. Colace & Senokot - Take to prevent constipation which can be caused by narcotics. These can be bought [id number] at the pharmacy 4. Lovenox - take 40mg SQ daily until INR therapeutic between 2.0 and 3.0 * The most common side effects of pain medicine and iron are nausea and constipation. If nausea or constipation is too much of a problem or if you have any questions about your new medicines or doses, call [facility] at . We will try to help you manage these issues. VERY IMPORTANT TO READ AND REVIEW" Blood Clots and Blood Thinning Medicine: * You are given Coumadin during the immediate post-operative period to lessen the risk of blood clots forming in your legs and/or lungs. Coumadin is usually given for six weeks after surgery. * The prescription is for 2 mg tablets. At discharge, you should understand your dose and take it all at the same time every day, preferably after dinner. * You need to get your blood checked every Friday and for six weeks or as directed. * If your dose needs to change, we will call you. Do not take your medication on the day of the blood test until we call you. Physical Therapy: * Do your physical therapy at home. These are the exercises you learned while in the hospital (quad sets, leg raises, calf pumps, gluteal squeezes, knee bending, and heel props.) You should do these exercises 3-4 times per day. * You will either go to inpatient rehab ([facility]), home with Home Therapy and nursing or home with outpatient rehab. You should do rehab with the therapist 2-3 times per week. You should do therapy on your own daily. * You may bear full weight on your leg with crutches or walker unless otherwise advised. Home Exercise: * You were shown a series of exercises (heel props, heel slides, etc.) in the hospital. Do these exercises three to four times each day including the exercises you were shown in physical therapy. Walking: * You may be up for short periods of time. Standing and walking for 1-2 hours at a time is usually okay. You should not stand or walk for excessive periods of time as this may cause increased pain and swelling. SELF CARE INSTRUCTIONS AFTER TOTAL KNEE REPLACEMENT A. You may need to continue a physical therapy program after discharge from the hospital. There are several options available to you. Your doctor will assist you in selecting the best one for you. 1. An out-patient facility 2 to 3 times a week for therapy or home therapy. 2. Continue working on all exercises taught to you in the hospital. Your goals should be to increase bending of your knee to 90 degrees and beyond and to fully straighten your knee. B. Your therapist will notify you when you are able to progress from a walker to a cane. C. Wear TEDS as much as possible.~ They may be removed at night for laundering. D. Do not place a pillow behind your knee when resting. A pillow at your ankle is okay. E. Ice your knee 15-20 minutes every 2-3 hours and elevate it above the level of your heart. F. You may shower on the fourth day after surgery using regular soap and water. Do not submerge until the wound is completely healed (approximately 2 weeks ). Until the fourth day after surgery, cover the incision/bandage with a bag or plastic wrap. G. Anyone who is touching your surgical incision area should wash their hands and wear gloves. H. Keep your incision covered with gauze pads under the ERNESTO hose until it is dry. VERY IMPORTANT TO READ AND REVIEW A. YOU WILL BE GIVEN AN ORDER AT DISCHARGE FOR PT/INR (BLOOD WORK). PLEASE HAVE THIS DONE INSTRUCTED. PLEASE CALL OUR OFFICE AFTER YOUR BLOODWORK IS COMPLETE SO WE CAN TRACK YOUR RESULTS. IF YOU ARE GOING TO OUTPATIENT PHYSICAL THERAPY, YOU WILL NEED TO GO TO OUTPATIENT TESTING TO HAVE IT DRAWN. B. There are a few signs you need to watch for after you are home. Call [facility] if you notice any of the followin. Increased severe knee pain. Some pain is expected especially when you exercise. 2. Increased swelling in your leg or knee; pain or swelling of the calf muscle in either lower leg. 3. Any fluid drainage from the incision. 4. Shortness of breath or chest pain. 5. Numbness and tingling in the surgical extremity C. Please call [facility] at if you have any concerns or questions about your operation or recovery. The doctor or his nurse will return your call promptly. D. Do not have any elective dental work or other elective procedures done for 6 weeks after your knee replacement. When you have any invasive procedure (dental cleaning, extraction, colonoscopy etc) performed, you will need to take antibiotics to prevent infection from developing in your artificial joint. Tell your other health care providers you have an artificial joint. My office will supply you with further information and the antibiotics. Call your doctor if: * Temperature above 101 degrees F. * Pain not relieved by pain medicine ordered. * Increased drainage or redness from incision. * Notify your doctor with any questions or concerns. Follow-up Visit: You will follow-up with Dr. Gavin 10-14 days after surgery. The office number is . Avoid all tobacco products. If you need help to stop smoking, call [place]'s FREE QUITLINE at . This is a free call. Current Hospital Diet Patient's current hospital diet: AHA Diet (Heart Healthy) Discharge Diet Recommended Diet: Regular Diet Procedures Procedures Performed: Right Total Knee Arthroplasty Pending Studies Studies pending at discharge: no Physician Orders On Transfer Dressing Changes: Daily and PRN Vital Signs: per routine Medical Emergencies . Who to Call and When: Medical Emergencies: If at any time you feel your situation is an emergency, please call 911 immediately. . Non-Emergent Contact Non-Emergency issues call your: Surgeon Call Non-Emergent contact if: temperature is above 101, your pain is not controlled, your pain is concerning you, wound has increased drainage, you have any medication questions . . "Provider Documentation" section prepared by Sanjuanita Shanks. Core Measure Problem Core Measures: None VTE Core Measures Reason no anticoag overlap I/P: Treatment provided - N/A Reason no anticoag overlap @DC: Treatment provided - N/A [place] Drug Monitoring Program Search Results: patient reviewed within database, no issues identified
[2017-01-02] MEDS ORDERED: WARFARIN SOD 3 MG TAB PO SCH (16:00)
--- NOTE | 2017-01-02 16:24 | Hospitalist Progress Note ---
Hospitalist Progress Note Date of Service Jan 02, 2017. Subjective Pt evaluation today including: conversation w/ patient Patient had no acute issues States he feels well Constitutional: No fever Eyes: No worsening of vision Respiratory: No cough, No shortness of breath Cardiovascular: No chest pain Abdomen: No constipation, No pain, No vomiting Musculoskeletal: No joint pain Male : No dysuria Neurologic: No memory loss Psychiatric: No depression symptoms Endo: No fatigue Skin: No rash Objective Vital Signs Date Time Temp Pulse Resp B/P Pulse Ox O2 Delivery O2 Flow Rate FiO2 01/02/17 15:09 36.7 83 17 143/82 95 Room Air 01/02/17 08:33 93 152/82 01/02/17 07:50 Room Air 01/02/17 06:00 37.1 98 16 124/89 92 Room Air 01/01/17 23:52 Room Air 01/01/17 23:00 36.4 98 20 154/82 93 Room Air 01/01/17 19:59 107 175/99 Physical Exam General Appearance: WD/WN, no apparent distress Eyes: normal inspection ENT: normal ENT inspection Neck: supple, no adenopathy Respiratory/Chest: chest non-tender, lungs clear Cardiovascular: regular rate, rhythm Abdomen: normal bowel sounds, non tender, soft Extremities: normal range of motion, non-tender Neurologic/Psychiatric: 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 II-XII nml as tested, oriented x 3 Skin: normal color, warm/dry, no rash Lymphatic: no adenopathy Laboratory Results Last 24 Hours Test 01/02/17 05:30 Hemoglobin 9.6 g/dL Hematocrit 28.2 % Prothrombin Time 15.9 SECONDS Prothromb Time International Ratio 1.5 Sodium Level 139 mmol/L Potassium Level 4.5 mmol/L Chloride Level 107 mmol/L Carbon Dioxide Level 24 mmol/L Anion Gap 8.0 mmol/L Blood Urea Nitrogen 30 mg/dl Creatinine 1.30 mg/dl Est Creatinine Clear Calc Drug Dose 54.1 ml/min Estimated GFR () 60.1 Estimated GFR (Non- 51.9 BUN/Creatinine Ratio 22.9 Random Glucose 125 mg/dl Calcium Level 9.2 mg/dl Assessment and Plan Mr. Kauffman is a 81 y/o male with PMHx of Persistent Atrial Fibrillation, Polycystic Kidney Disease with CKD, HTN, Non-Hodgkins Lymphoma (off treatment), and COPD who is S/P R TKA on 12/[address] Gavin. 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
--- NOTE | 2017-01-02 17:44 | PROGRESS NOTE ---
DATE: 01/02/2017 SUBJECTIVE: Mr. Kauffman is resting comfortably in bed. He was sleeping but easily arousable. He is awake and alert and oriented x3. Distal neurovascular function intact. 1+ radial pulse. Small knee effusion, incision benign, unable to do a straight leg raise. No drainage. He is afebrile. His vital signs are stable. His confusion has nearly completely resolved, if not completely. He is doing well with his knee replacement. He will continue on his Coumadin per the recommendations of the Coumadin clinic. Until he is therapeutic, we will keep him on the Lovenox. Plan on transfer to [facility] when approved. Hematocrit 28, INR 1.5. PRP noted. BUN slightly elevated at 30.
--- NOTE | 2017-01-02 17:47 | PROGRESS NOTE ---
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
[2017-01-02 23:23] VITALS: BP 151/80; PULSE 101; TEMP 37; O2SAT 95
[2017-01-03 06:18] LABS: INR 1.4 (0.9-1.1); PROTHROMBIN TIME (PATIENT) 15.5 SECONDS (9.0-12.0)
[2017-01-03 07:05] VITALS: BP 137/80; PULSE 82; TEMP 37.2; O2SAT 95
[2017-01-03] MEDS ORDERED: ULT50X PO (08:17)
[2017-01-03] MEDS ORDERED: HYDR-5688 PO (08:17)
[2017-01-03] MEDS ORDERED: LVNIS40 SQ (08:17)
[2017-01-03] MEDS ORDERED: CLC100 PO (08:17)
[2017-01-03] MEDS ORDERED: TYL325X PO (08:17)
[2017-01-03] MEDS ORDERED: MULT-589 PO (08:17)
--- NOTE | 2017-01-03 08:28 | Orthopedic Progress Note ---
Orthopedic Progress Note Date of Service Jan 03, 2017. Subjective Post OP Day: 3 Reports: feeling well, pain controlled w PO medications, Denies: SOB, calf pain , chest pain, complaints, light headedness, nausea / vomiting Additional Notes: No confusion last PM Objective calves soft nontender, capillary refill less than 2 sec., dressing C/D/I, incision C/D/I, A&O x3, toes mobile Date Time Temp Pulse Resp B/P Pulse Ox O2 Delivery O2 Flow Rate FiO2 01/03/17 07:05 37.2 82 19 137/80 95 Room Air 01/02/17 23:45 Room Air 01/02/17 23:23 37.0 101 20 151/80 95 Room Air 01/02/17 15:30 Room Air 01/02/17 15:09 36.7 83 17 143/82 95 Room Air 01/02/17 08:33 93 152/82 Laboratory Results 24 Hours: Test 01/03/17 05:33 Prothromb Time International Ratio 1.4 Prothrombin Time 15.5 SECONDS Assessment & Plan Assessment: POD 3 Right Total Knee Replacement Plan: OOB PT/OT today. WBAT RLE Knee immobilizer until quad control Ice to knee as needed for pain/swelling Tolerating regular diet Regular Coumadin Dose and addition of Lovenox 40mg SQ daily until INR greater than 2.0. Teds/Foot pumps Walker to assist with ambulation. [facility] today. Follow up with Dr. gavin as scheduled in approximately 2 weeks. Will discuss findings with Dr. Gavin. Discharge Planning Discharge Planning: rehab hospital Pain Management: Taylor Monique DVT Prophylaxis: TEDs, Coumadin (regular Coumadin dose), Lovenox (40mg daily until INR greater than 2.0) Therapy: Physical Therapy
[2017-01-03] MEDS: BUDESONIDE/FORMOTEROL FUMARATE 80/4.5 60 PUFFS/INHALER INH SCH (09:43)
[2017-01-03] MEDS: MULTIVITAMIN TAB PO SCH (09:44)
[2017-01-03] MEDS: PANTOprazole SOD 40 MG TAB PO SCH (09:44)
[2017-01-03] MEDS: GABAPENTIN 100 MG CAP PO SCH (09:44)
[2017-01-03] MEDS: ATORVASTATIN 10 MG TAB PO SCH (09:44)
[2017-01-03] MEDS: ENOXAPARIN 40 MG/0.4 ML SYR SQ SCH (09:45)
[2017-01-03] MEDS: DOCUSATE SODIUM 100 MG CAP PO SCH (09:45)
[2017-01-03 09:58] VITALS: PULSE 107; O2SAT 96
[2017-01-03 09:59] VITALS: BP 136/81; PULSE 79
[2017-01-03] MEDS: METOPROLOL TARTRATE 50 MG TAB PO SCH (10:01)
[2017-01-03] MEDS: FUROSEMIDE 20 MG TAB PO SCH (10:01)
[2017-01-03] MEDS: DOXAZosin MESYLATE TAB 4 MG TAB PO SCH (10:02)
[2017-01-03] MEDS: DILTIAZEM HCL 240 MG CAPCR PO SCH (10:03)
[2017-01-03 10:11] VITALS: BP 136/81; PULSE 79; TEMP 37.2; O2SAT 95
--- NOTE | 2017-01-03 11:26 | Discharge Summary ---
Discharge Summary Date of Service Jan 03, 2017. Discharge Summary Admission Date: Dec 31, 2016 at 06:30 Discharge Date: Jan 03, 2017 Discharge Disposition: Rehab ([facility]) Principal Diagnosis: DJD right knee; right total knee arthroplasty Secondary Diagnoses/Problems: a-fib, HTN, COPD, hyperlipidemia, actinic keratosis, h/o lymphoma Procedures: Right Total Knee Arthrplasty 12/31/[address] Gavin Consultations: Hospitalist for post op medical management Pending Studies/Follow-Up: Follow up as scheduled with Dr. Gavin on 01/14/17 at 2:00 p.m. Medication Reconciliation New Medications: Hydrocodone/Acetaminophen 5MG/325MG (Conrath 5MG/325MG) Tab 1-2 TABLET PO Q6H PRN for Pain, #30 TAB Acetaminophen (Tylenol) 325 Mg Tab 650 MG PO Q6H PRN for PAIN/TEMP GREATER THAN 38 C for 30 Days, #240 TAB Docusate Sodium (Docusate Sodium) 100 Mg Cap 100 MG PO BID for 30 Days, #60 CAP Enoxaparin (Enoxaparin Sodium) 40 Mg/0.4 Ml Inj 40 MG SQ QAM, #5 Multivitamins (Daily Dwight) 1 Tab Tab 1 TAB PO QAM for 30 Days, #30 TAB Tramadol HCl (Tramadol HCl) 50 Mg Tab 50-100 MG PO Q4H PRN for Pain, #30 TAB Continued Medications: Acetaminophen (Tylenol) 500 Mg Tab 1000 MG PO BID, TAB Amoxicillin (Amoxil) 500 Mg Cap 2000 MG PO UD, #21 CAP BEFORE DENTAL WORK Atorvastatin (Lipitor) 10 Mg Tab 10 MG PO QAM, TAB Budesonide/Formoterol Fumarate (Symbicort 80/4.5 Inhaler) Aero 2 PUFFS INH QAM, INHALER Diltiazem Hcl Cd (Cardizem Cd *) 240 Mg Capcr 240 MG PO QAM Doxazosin Mesylate (Cardura *) 4 Mg Tab 4 MG PO QAM Furosemide (Lasix *) 20 Mg Tab 20 MG PO QAM Gabapentin (Neurontin) 100 Mg Cap 100 MG PO BID, CAP Metoprolol Tartrate (Lopressor) (Lopressor) 50 Mg Tab 75 MG PO BID Warfarin Sod (Jantoven) 3 Mg Tab 3 MG PO Q2D, TAB PM Warfarin Sod (Jantoven) 3 Mg Tab 1.5 MG PO Q2D, TAB PM Hospital Course Mr. Kauffman was admitted to the [facility] on 12/31/16 after undergoing a right Total Knee Arthroplasty for end stage DJD of his right knee. His surgery was done with spinal anesthesia with a peripheral nerve block. He tolerated the procedure well without any intra-operative complications. He was given 2gm IV Ancef for surgical prophylaxis which was continued for 24 hours post operatively. His post operative x-rays revealed stable prosthesis, these were reviewed by Dr. Gavin. He was allowed out of bed, weight bear as tolerated right lower extremity with the assistance of a walker and knee immobilizer. He was given a regular diet and tolerated food well. He was placed on his Coumadin post operatively 6mg day of surgery, 3mg POD 1, 3mg POD 2 , 1.5mg POD 3 as per Coumadin Clinic's plan. He was also started on Lovenox 40mg SQ daily on POD 2 until INR was greater than 2.0. He was seen and followed during his inpatient stay by the hospitalist service for post operative medical management. He did develop some post operative confusion requiring 1:1 nursing care on POD 1. He did not need this the evening of POD 2 into POD 3. The most likely etiology was from anesthesia and pain medications. Narcotics were limited after that. He did develop some post operative acute blood loss anemia, no transfusions were required. He did well out of bed and was safe in PT. It was determined it would be beneficial for him to go to inpatient rehab and he was cleared to go to [facility] on . Discharge instructions were provided and he was discharged in stable condition. Total time spent on discharge = This includes examination of the patient, discharge planning, medication reconciliation, and communication with other providers. Discharge Instructions Discharge Instructions Date of Service Jan 02, 2017. Admission Reason for Admission: Right Knee Osteoarthritis Discharge Discharge Diagnosis / Problem: Right knee osteoarthritis; s/p Right TKA Discharge Goals Goal(s): Decrease discomfort, Improve function, Increase independence Activity Recommendations Activity Level: Up Ad Phoebe, Assistance Required (with walker) Therapies: Physical Therapy, Weight Bearing Status (WBAT RLE) Weightbearing Status: Right weightbearing (as tolerated) Shower/Bathe: may shower/bathe in 3 days . Additional Information Patient informed of condition: Yes Advance Directives: No DNR: No Level of Care: Acute Rehab Communicable Disease: No Prognosis: Stable Lopez Catheter: No Instructions / Follow-Up Instructions / Follow-Up New Medicine: * You will likely be taking one or more of these medications: 1. Coumadin (Warfarin) - YOu will be on you regular scheduled Coumadin alternating 3mg and 1.5mg daily. This should be managed by the Coumadin Clinic. Do not take anti-inflammatory pills (Advil or Aleve) while on Coumadin. Aspirin, 81 mg is OK. 2. Percocet - Take, as directed, when you need it, every four to six hours to control your pain. 3. Colace & Senokot - Take to prevent constipation which can be caused by narcotics. These can be bought [id number] at the pharmacy 4. Lovenox - take 40mg SQ daily until INR therapeutic between 2.0 and 3.0 * The most common side effects of pain medicine and iron are nausea and constipation. If nausea or constipation is too much of a problem or if you have any questions about your new medicines or doses, call [facility] at . We will try to help you manage these issues. VERY IMPORTANT TO READ AND REVIEW" Blood Clots and Blood Thinning Medicine: * You are given Coumadin during the immediate post-operative period to lessen the risk of blood clots forming in your legs and/or lungs. Coumadin is usually given for six weeks after surgery. * The prescription is for 2 mg tablets. At discharge, you should understand your dose and take it all at the same time every day, preferably after dinner. * You need to get your blood checked every Friday and for six weeks or as directed. * If your dose needs to change, we will call you. Do not take your medication on the day of the blood test until we call you. Physical Therapy: * Do your physical therapy at home. These are the exercises you learned while in the hospital (quad sets, leg raises, calf pumps, gluteal squeezes, knee bending, and heel props.) You should do these exercises 3-4 times per day. * You will either go to inpatient rehab ([facility]), home with Home Therapy and nursing or home with outpatient rehab. You should do rehab with the therapist 2-3 times per week. You should do therapy on your own daily. * You may bear full weight on your leg with crutches or walker unless otherwise advised. Home Exercise: * You were shown a series of exercises (heel props, heel slides, etc.) in the hospital. Do these exercises three to four times each day including the exercises you were shown in physical therapy. Walking: * You may be up for short periods of time. Standing and walking for 1-2 hours at a time is usually okay. You should not stand or walk for excessive periods of time as this may cause increased pain and swelling. SELF CARE INSTRUCTIONS AFTER TOTAL KNEE REPLACEMENT A. You may need to continue a physical therapy program after discharge from the hospital. There are several options available to you. Your doctor will assist you in selecting the best one for you. 1. An out-patient facility 2 to 3 times a week for therapy or home therapy. 2. Continue working on all exercises taught to you in the hospital. Your goals should be to increase bending of your knee to 90 degrees and beyond and to fully straighten your knee. B. Your therapist will notify you when you are able to progress from a walker to a cane. C. Wear TEDS as much as possible.~ They may be removed at night for laundering. D. Do not place a pillow behind your knee when resting. A pillow at your ankle is okay. E. Ice your knee 15-20 minutes every 2-3 hours and elevate it above the level of your heart. F. You may shower on the fourth day after surgery using regular soap and water. Do not submerge until the wound is completely healed (approximately 2 weeks ). Until the fourth day after surgery, cover the incision/bandage with a bag or plastic wrap. G. Anyone who is touching your surgical incision area should wash their hands and wear gloves. H. Keep your incision covered with gauze pads under the ERNESTO hose until it is dry. VERY IMPORTANT TO READ AND REVIEW A. YOU WILL BE GIVEN AN ORDER AT DISCHARGE FOR PT/INR (BLOOD WORK). PLEASE HAVE THIS DONE INSTRUCTED. PLEASE CALL OUR OFFICE AFTER YOUR BLOODWORK IS COMPLETE SO WE CAN TRACK YOUR RESULTS. IF YOU ARE GOING TO OUTPATIENT PHYSICAL THERAPY, YOU WILL NEED TO GO TO OUTPATIENT TESTING TO HAVE IT DRAWN. B. There are a few signs you need to watch for after you are home. Call [facility] if you notice any of the followin. Increased severe knee pain. Some pain is expected especially when you exercise. 2. Increased swelling in your leg or knee; pain or swelling of the calf muscle in either lower leg. 3. Any fluid drainage from the incision. 4. Shortness of breath or chest pain. 5. Numbness and tingling in the surgical extremity C. Please call [facility] at if you have any concerns or questions about your operation or recovery. The doctor or his nurse will return your call promptly. D. Do not have any elective dental work or other elective procedures done for 6 weeks after your knee replacement. When you have any invasive procedure (dental cleaning, extraction, colonoscopy etc) performed, you will need to take antibiotics to prevent infection from developing in your artificial joint. Tell your other health care providers you have an artificial joint. My office will supply you with further information and the antibiotics. Call your doctor if: * Temperature above 101 degrees F. * Pain not relieved by pain medicine ordered. * Increased drainage or redness from incision. * Notify your doctor with any questions or concerns. Follow-up Visit: You will follow-up with Dr. Gavin 10-14 days after surgery. The office number is . Avoid all tobacco products. If you need help to stop smoking, call [place]'s FREE QUITLINE at . This is a free call. Current Hospital Diet Patient's current hospital diet: AHA Diet (Heart Healthy) Discharge Diet Recommended Diet: Regular Diet Procedures Procedures Performed: Right Total Knee Arthroplasty Pending Studies Studies pending at discharge: no Physician Orders On Transfer Dressing Changes: Daily and PRN Vital Signs: per routine Medical Emergencies . Who to Call and When: Medical Emergencies: If at any time you feel your situation is an emergency, please call 911 immediately. . Non-Emergent Contact Non-Emergency issues call your: Surgeon Call Non-Emergent contact if: temperature is above 101, your pain is not controlled, your pain is concerning you, wound has increased drainage, you have any medication questions . . "Provider Documentation" section prepared by Sanjuanita Shanks. Core Measure Problem Core Measures: None VTE Core Measures Reason no anticoag overlap I/P: Treatment provided - N/A Reason no anticoag overlap @DC: Treatment provided - N/A [place] Drug Monitoring Program Search Results: patient reviewed within database, no issues identified <Electronically signed by Sanjuanita Shanks PA-C> Signed: 01/02/17 1543 Signed: The status of this report is ISigned * If report status is Draft, the document has not been finalized by the responsible provider.
[2017-01-03] MEDS ORDERED: WARFARIN TAB 1 MG, WARFARIN TAB 0.5 MG PO SCH (16:00)
[2017-01-03] MEDS ORDERED: WARFARIN SOD 1.25 MG TAB PO SCH (16:00)
[2017-01-04] MEDS ORDERED: WARFARIN SOD 3 MG TAB PO SCH (16:00)
[2017-08-20] MEDS ORDERED: FESO8TAB PO (11:02)
== END 2017-01-03 13:03 | DRG 469 ==
LOC: ENRESERVDT → ENRESERVTM → C.ACU 05:06 → C.3E 06:30
PROVIDERS: ADMIT Physical Medicine & Rehabilitation Sports Medicine; ATTEND Physical Medicine & Rehabilitation Sports Medicine
PROC: 0SRC0J9 Replacement of Right Knee Joint with Synthetic Substitute, Cemented, Open Approach (ICD-10-PCS; principal; 2016-12-31 07:00)
DX: M17.11 Unilateral primary osteoarthritis, right knee (principal); G92 Toxic encephalopathy; C85.90 Non-Hodgkin lymphoma, unspecified, unspecified site; Q61.3 Polycystic kidney, unspecified; I48.1 Persistent atrial fibrillation; D62 Acute posthemorrhagic anemia; Z96.652 Presence of left artificial knee joint; E78.5 Hyperlipidemia, unspecified; I12.9 Hypertensive chronic kidney disease with stage 1 through stage 4 chronic kidney disease, or unspecified chronic kidney disease; N18.3 Chronic kidney disease, stage 3 (moderate); Z87.442 Personal history of urinary calculi; Z98.41 Cataract extraction status, right eye; Z98.42 Cataract extraction status, left eye; J44.9 Chronic obstructive pulmonary disease, unspecified; Z85.828 Personal history of other malignant neoplasm of skin; Z82.49 Family history of ischemic heart disease and other diseases of the circulatory system; Z82.3 Family history of stroke; Z84.89 Family history of other specified conditions; Z79.899 Other long term (current) drug therapy; Z87.891 Personal history of nicotine dependence; L57.0 Actinic keratosis; Z79.01 Long term (current) use of anticoagulants

== ENCOUNTER → 2017-02-20 | Outpatient (CLI) | payer OTHER ==
[~2017-02-20] MED LIST changes: +CLC100 PO; +FESO8TAB PO; +HYDR-5688 PO; +LVNIS40 SQ; +MULT-589 PO; +TYL325X PO; +ULT50X PO
[2017-02-20 13:37] LABS: HEMATOCRIT 33.5 % (42-52); MEAN CELL VOLUME 98.2 fL (80-100); MEAN CORPUSCULAR HEMOGLOBIN 31.1 pg (25-34); MEAN CORPUSCULAR HGB CONC 31.6 g/dl (32-36); MEAN PLATELET VOLUME 9.8 fL (7.4-10.4); PLATELET COUNT 203 K/uL (130-400); RED BLOOD COUNT 3.41 M/uL (4.7-6.1); WHITE BLOOD COUNT 5.12 K/uL (4.8-10.8)
[2017-02-20 13:55] LABS: MANUAL MICROSCOPIC REQUIRED? NO; REVIEW REQ? NO; URINE APPEARANCE CLEAR (CLEAR); URINE BILIRUBIN NEG (NEG); URINE COLOR YELLOW; URINE EPITHELIAL CELL AUTO 0-5 /lpf (0-5); URINE NITRITE NEG (NEG); URINE PH 5.5 (4.5-7.5); URINE SPECIFIC GRAVITY 1.016 (1.000-1.030); UROBILINOGEN NEG (NEG)
[2017-02-20 14:26] LABS: URINE PROTIEN/CREAT RATIO 0.2 (0-0.2); URINE TOTAL PROTEIN 10.9 mg/dl (0-11.9)
[2017-02-20 14:41] LABS: ALT/SGPT 20 U/L (12-78); AST/SGOT 16 U/L (15-37); BLOOD UREA NITROGEN 31 mg/dl (7-18); BUN/CREATININE RATIO 19.6 (10-20); CARBON DIOXIDE 26 mmol/L (21-32); CHLORIDE 111 mmol/L (98-107); GLUCOSE 137 mg/dl (70-99); SODIUM 144 mmol/L (136-145)
[2017-02-20 14:44] LABS: ALKALINE PHOSPHATASE 86 U/L (45-117)
[2017-02-20 15:05] LABS: CALCIUM 9.4 mg/dl (8.5-10.1)
[2017-02-21 05:46] LABS: ESTIMATED AVERAGE GLUCOSE 123 mg/dl; HA1C FLAG Normal (Normal)
== END | disposition home or self-care (01) ==
LOC: C.LABBC 09:32
PROVIDERS: ATTEND Internal Medicine Nephrology
DX: D64.9 Anemia, unspecified (principal); I12.9 Hypertensive chronic kidney disease with stage 1 through stage 4 chronic kidney disease, or unspecified chronic kidney disease; N18.3 Chronic kidney disease, stage 3 (moderate); N25.81 Secondary hyperparathyroidism of renal origin; N20.0 Calculus of kidney; N28.1 Cyst of kidney, acquired; R73.9 Hyperglycemia, unspecified; Z51.81 Encounter for therapeutic drug level monitoring; Z79.01 Long term (current) use of anticoagulants; I48.91 Unspecified atrial fibrillation

== ENCOUNTER → 2017-03-19 | Outpatient (CLI) | payer OTHER ==
[~2017-03-19] MED LIST changes: -ATOR10TA82 PO; +ATOR10TA88 PO; -FESO8TAB PO
[2017-03-19 11:03] LABS: CHOLESTEROL/HDL RATIO 3.7
== END | disposition home or self-care (01) ==
LOC: C.LABBC 08:50
PROVIDERS: ATTEND Internal Medicine Cardiovascular Disease
DX: E78.5 Hyperlipidemia, unspecified (principal)

== ENCOUNTER → 2017-03-31 | Outpatient (CLI) | payer OTHER | END | disposition home or self-care (01) | LOC: C.RDSM 07:00 | PROVIDERS: ATTEND Physical Medicine & Rehabilitation Sports Medicine | DX: M25.561 Pain in right knee (principal); M25.562 Pain in left knee; Z96.653 Presence of artificial knee joint, bilateral ==

== ENCOUNTER → 2017-06-18 | Outpatient (CLI) | payer OTHER ==
[~2017-06-18] MED LIST changes: -HYDR-5688 PO; -LVNIS40 SQ; -ULT50X PO
[2017-06-18 13:35] LABS: BASO % 0.3 %; BASO ABS # 0.01 K/uL (0-0.2); COMPLETE YES; EOS % 5.1 %; HEMATOCRIT 30.7 % (42-52); IG% 0.3 %; LYMPH ABS # 0.59 K/uL (1.2-3.4); MEAN CELL VOLUME 93.9 fL (80-100); MEAN CORPUSCULAR HEMOGLOBIN 29.4 pg (25-34); MEAN CORPUSCULAR HGB CONC 31.3 g/dl (32-36); MEAN PLATELET VOLUME 9.8 fL (7.4-10.4); MONO % 15.5 %; NEUT % 63.8 %; PLATELET COUNT 168 K/uL (130-400); RED BLOOD COUNT 3.27 M/uL (4.7-6.1); WHITE BLOOD COUNT 3.93 K/uL (4.8-10.8)
[2017-06-18 14:33] LABS: ALT/SGPT 18 U/L (12-78); AST/SGOT 17 U/L (15-37); BLOOD UREA NITROGEN 32 mg/dl (7-18); BUN/CREATININE RATIO 18.6 (10-20); CALCIUM 9.1 mg/dl (8.5-10.1); CARBON DIOXIDE 24 mmol/L (21-32); CHLORIDE 110 mmol/L (98-107); GLUCOSE 106 mg/dl (70-99); POTASSIUM 4.3 mmol/L (3.5-5.1); SODIUM 143 mmol/L (136-145)
[2017-06-18 14:41] LABS: ESTIMATED AVERAGE GLUCOSE 131 mg/dl; HA1C FLAG Normal (Normal)
[2017-06-18 14:43] LABS: ALB/GLOB RATIO 1.1 (0.9-2); ALKALINE PHOSPHATASE 70 U/L (45-117)
== END | disposition home or self-care (01) ==
LOC: C.LABBC 09:54
PROVIDERS: ATTEND Internal Medicine Geriatric Medicine
DX: I12.9 Hypertensive chronic kidney disease with stage 1 through stage 4 chronic kidney disease, or unspecified chronic kidney disease (principal); N18.3 Chronic kidney disease, stage 3 (moderate); D64.9 Anemia, unspecified; R73.9 Hyperglycemia, unspecified; I48.2 Chronic atrial fibrillation; R53.83 Other fatigue

== ENCOUNTER → 2017-06-26 | Outpatient (CLI) | payer OTHER ==
--- NOTE | 2017-06-26 13:45 | DIAGNOSTIC IMAGING REPORT ---
R KNEE 3 VIEWS CLINICAL HISTORY: Right knee pain. COMPARISON: Knee radiographs March 31, 2017. FINDINGS: Alignment of the total right knee arthroplasty is anatomic. There is no periprosthetic fracture or unexpected radiopaque foreign body. There is no periprosthetic lucency. There is a possible small right knee joint effusion. IMPRESSION: 1. Status post total right knee arthroplasty. Hardware intact with no periprosthetic fracture or lucency. 2. Possible small right knee joint effusion. Electronically signed by: Lxe Mitchell M.D. 06/26/2017 1:44 PM Dictated Date/Time: 06/26/2017 1:42 PM
--- NOTE | 2017-06-26 13:52 | DIAGNOSTIC IMAGING REPORT ---
L KNEE 3 VIEWS HISTORY: 82 years-old Male M54.5 Low back painPain in both knees about 3 inches above the k acute left knee pain COMPARISON: Leg length study 11/06/2016 TECHNIQUE: 3 views of the left knee FINDINGS: Bones are mildly demineralized. Left knee arthroplasty with evidence of prior patellar resurfacing noted. No acute fracture or dislocation identified. No evidence of hardware complication. There is a small to moderate joint effusion. Vascular calcifications are noted. IMPRESSION: 1. Small to moderate joint effusion without acute fracture or dislocation. 2. Left knee arthroplasty with evidence of prior patellar resurfacing. No evidence of hardware complication. The above report was generated using voice recognition software. It may contain grammatical, syntax or spelling errors. Electronically signed by: Reginaldo Barbour M.D. 06/26/2017 1:50 PM Dictated Date/Time: 06/26/2017 1:48 PM
--- NOTE | 2017-06-26 14:14 | DIAGNOSTIC IMAGING REPORT ---
LUMBAR SPINE 5 VIEWS CLINICAL HISTORY: Chronic low back pain. FINDINGS: AP, lateral, bilateral oblique, and coned-down views of the lumbar spine are correlated with abdominal CT dated 10/11/2015. The skeletal structures are osteopenic. There is lumbar dextroscoliosis. There is no radiographic evidence of fracture or malalignment. Vertebral body height and alignment are maintained. There is straightening of the lumbar lordosis. Anterior osteophytes are seen throughout. There is no evidence of spondylolysis. Facet arthropathy is present in the mid to lower lumbar spine. Moderate disc space narrowing is seen at L2-L3 at L5-S1. Mild disc space narrowing is seen at the remaining lumbar levels. The visualized bony pelvis appears intact. Advanced atherosclerotic calcification is noted in the abdominal aorta. Phleboliths are seen in the pelvis. There is moderate colonic fecal retention. No bowel obstruction is identified. IMPRESSION: 1. No acute bony abnormality is seen involving the lumbar spine. 2. Osteopenia with lumbosacral spondylosis and scoliosis as above. Dictated: 06/26/2017 1:54 PM Transcribed: 06/26/2017 2:14 PM NILESH_Linda Electronically signed by: Jorge Huber M.D. 06/26/2017 2:17 PM Dictated Date/Time: 06/26/2017 1:54 PM
== END | disposition home or self-care (01) ==
LOC: C.RAD 12:53
PROVIDERS: ATTEND Internal Medicine Rheumatology
DX: M54.5 Low back pain (principal); M25.561 Pain in right knee; M25.562 Pain in left knee; Z96.653 Presence of artificial knee joint, bilateral; M25.462 Effusion, left knee; M85.88 Other specified disorders of bone density and structure, other site; M47.817 Spondylosis without myelopathy or radiculopathy, lumbosacral region; M41.9 Scoliosis, unspecified

== ENCOUNTER → 2017-06-26 | Outpatient (CLI) | payer OTHER ==
[2017-06-26 13:43] LABS: TOTAL IRON BINDING CAPACITY 369 mcg/dl (250-450)
[2017-06-28 02:27] LABS: ALBUMIN 3.8 G/DL (3.8-4.8); GAMMA GLOBULIN 0.8 G/DL (0.8-1.7); TOTAL PROTEIN 6.3 G/DL (6.2-8.3)
== END | disposition home or self-care (01) ==
LOC: C.LAB 09:38
PROVIDERS: ATTEND Internal Medicine Rheumatology
DX: M54.5 Low back pain (principal); M25.561 Pain in right knee; M25.562 Pain in left knee; M89.9 Disorder of bone, unspecified

== ENCOUNTER → 2017-07-02 | Outpatient (CLI) | payer OTHER ==
[~2017-07-02] MED LIST changes: +ATOR10TA82 PO; -ATOR10TA88 PO
--- NOTE | 2017-07-07 17:16 | POLYSOMNOGRAPH REPORT ---
CLINICAL DATA: An 82-year-old male with BMI of 34.[address] Rusty Felder with symptoms of snoring and daytime somnolence. On the evening of 07/02/2017, a home sleep apnea test was performed using a [employer] Modern[employer] type 3 monitor. RECORDING RESULTS: Total recording time was 10 hours. The patient's estimated sleep time and monitoring time was 8.6 hours. RESPIRATORY DATA: Severe sleep apnea was documented. The CLEESTINO was 54.4. There were 177 obstructive and 260 mixed apneic episodes. There were 33 hypopneic episodes. The longest respiratory event was 71 seconds. OXIMETRY DATA: Severe hypoxemia was seen. Oxygen carlos was 69%. Mean saturation was 90%. Time below 89% was 205 minutes. HEART RATE DATA: Heart rates ranged from 57-75 beats per minute. SNORING DATA: Snoring was recorded throughout the night. IMPRESSION: Severe sleep apnea/hypopnea with severe nocturnal hypoxemia with an respiratory event index of 54.4 and an oxygen carlos of 69%. RECOMMENDATIONS: The patient may benefit from a repeat sleep study with CPAP and/or sleep medicine consultation. Clinical correlation is needed. KEOND
== END | disposition home or self-care (01) ==
LOC: C.NEUR 09:43
PROVIDERS: ATTEND Internal Medicine
DX: R40.0 Somnolence (principal); R53.83 Other fatigue

== ENCOUNTER → 2017-07-03 | Outpatient (CLI) | payer OTHER ==
[~2017-07-03] MED LIST changes: -ATOR10TA82 PO; +ATOR10TA88 PO
--- NOTE | 2017-07-03 14:16 | DIAGNOSTIC IMAGING REPORT ---
BONE SCAN WHOLE BODY CLINICAL HISTORY: M54.5 Low back [id number] COMPARISON STUDY: Bilateral knees and lumbar spine dated 06/26/2017 FINDINGS: The patient was injected with 27 mCi of technetium 99m MDP. Three-hour delayed whole body images were acquired. These are supplemented with static images of the knees and feet. There is a focus of increased activity within the mandible in the midline. This likely relates to underlying condition. There is a focus of increased activity at the level of the left sixth costochondral junction. While nonspecific, this is a typical location for posttraumatic activity. There is mild increased activity within the lower lumbar spine at the L4-5 level to the right of midline. This corresponds to a large osteophyte and is felt to be degenerative. There are photopenic defects involving each knee, consistent with prior knee arthroplasties. There is an unexplained focus of mild increased activity involving the medial cortex of the right femur at the junction of middle distal one third. There are no corresponding plain film abnormalities. There is mild increased activity surrounding both the femoral and tibial components of the right knee arthroplasty. As the patient's surgery was within the last year, this is likely postoperative There are foci of increased activity within both feet, likely degenerative/arthritic basis. IMPRESSION: 1. Focus of increased activity within the lower lumbar spine which is felt to be degenerative 2. Foci of increased activity within the feet, likely degenerative/arthritic 3. Evidence of bilateral total knee arthroplasties 4. Unexplained mild focus of increased activity involving the medial cortex of the right femur at the junction of the middle and distal one third 5. Focus of increased activity at the level of the left sixth costochondral junction Electronically signed by: Tyler Rogers M.D. 07/03/2017 2:15 PM Dictated Date/Time: 07/03/2017 2:06 PM
== END | disposition home or self-care (01) ==
LOC: C.NUCL 09:26
PROVIDERS: ATTEND Internal Medicine Rheumatology
DX: M54.5 Low back pain (principal); Z96.653 Presence of artificial knee joint, bilateral

== ENCOUNTER → 2017-10-01 | Outpatient (CLI) | payer OTHER ==
[~2017-10-01] MED LIST changes: +ATOR10TA82 PO; -ATOR10TA88 PO; +FESO8TAB PO
[2017-10-01 17:21] LABS: HEMATOCRIT 34.4 % (42-52); HEMOGLOBIN 10.9 g/dL (14.0-18.0); MEAN CELL VOLUME 99.4 fL (80-100); MEAN CORPUSCULAR HEMOGLOBIN 31.5 pg (25-34); MEAN CORPUSCULAR HGB CONC 31.7 g/dl (32-36); MEAN PLATELET VOLUME 10.1 fL (7.4-10.4); PLATELET COUNT 165 K/uL (130-400); RED CELL DISTRIBUTION WIDTH CV 16.1 % (11.5-14.5); RED CELL DISTRIBUTION WIDTH SD 59.2 fL (36.4-46.3)
[2017-10-01 17:32] LABS: ALBUMIN 3.4 gm/dl (3.4-5.0); BLOOD UREA NITROGEN 25 mg/dl (7-18); CALCIUM 9.2 mg/dl (8.5-10.1); CARBON DIOXIDE 27 mmol/L (21-32); CREATININE 1.52 mg/dl (0.60-1.40); GLUCOSE 106 mg/dl (70-99); PHOSPHORUS 3.3 mg/dl (2.5-4.9); POTASSIUM 4.5 mmol/L (3.5-5.1); SODIUM 142 mmol/L (136-145)
== END | disposition home or self-care (01) ==
LOC: C.LABBC 14:36
PROVIDERS: ATTEND Internal Medicine Nephrology
DX: I12.9 Hypertensive chronic kidney disease with stage 1 through stage 4 chronic kidney disease, or unspecified chronic kidney disease (principal); D64.9 Anemia, unspecified; N18.3 Chronic kidney disease, stage 3 (moderate); N25.81 Secondary hyperparathyroidism of renal origin; N28.1 Cyst of kidney, acquired

== ENCOUNTER → 2017-10-02 | Outpatient (CLI) | payer OTHER | END | disposition home or self-care (01) | LOC: C.LABBC 08:50 | PROVIDERS: ATTEND Internal Medicine Cardiovascular Disease | DX: I12.9 Hypertensive chronic kidney disease with stage 1 through stage 4 chronic kidney disease, or unspecified chronic kidney disease (principal); D64.9 Anemia, unspecified; N18.3 Chronic kidney disease, stage 3 (moderate); N25.81 Secondary hyperparathyroidism of renal origin; N28.1 Cyst of kidney, acquired; E78.5 Hyperlipidemia, unspecified ==

== ENCOUNTER → 2017-10-07 | Outpatient (CLI) | payer OTHER ==
[~2017-10-07] VITALS: Ht 177.8 cm; Wt 114.7 kg
[2017-10-07 14:28] VITALS: BP 108/70; PULSE 81; Ht 177.8 cm; Wt 114.7 kg
== END | disposition home or self-care (01) ==
LOC: C.NEUR 13:25
PROVIDERS: ATTEND Internal Medicine Pulmonary Disease
DX: G47.30 Sleep apnea, unspecified (principal); R53.83 Other fatigue; I48.2 Chronic atrial fibrillation

== ENCOUNTER → 2017-10-22 | Outpatient (CLI) | payer OTHER ==
[~2017-10-22] MED LIST changes: +OPTIRAY 320 IV PRN
--- NOTE | 2017-10-22 16:06 | DIAGNOSTIC IMAGING REPORT ---
CT SCAN OF THE CHEST, ABDOMEN, AND PELVIS WITH IV CONTRAST CLINICAL HISTORY: Lymphoma. COMPARISON STUDY: Chest CT scans dated 10/11/2015 and 05/08/2006. Abdominal CT scan dated 10/11/2015. TECHNIQUE: Following the IV administration of 116 of Optiray 320, CT scan of the chest, abdomen, and pelvis was performed from the thoracic inlet to the proximal femora. Images are reviewed in the axial, sagittal, and coronal planes. IV contrast was administered without complication. Automated dose control exposure was utilized. A dose lowering technique was utilized adhering to the principles of ALARA. CT DOSE: 2038.07 mGy.cm FINDINGS: CHEST: Thyroid: Imaged portions of the thyroid gland are normal in size and attenuation. Thoracic aorta: There is atherosclerotic calcification of the thoracic aorta, which is normal in caliber and demonstrates standard 3-vessel arch anatomy. No dissection is seen. Pulmonary vasculature: The pulmonary trunk is normal in caliber. There are no filling defects identified in the central pulmonary vessels to indicate pulmonary embolus. Note that this examination was not protocoled for evaluation of the pulmonary arteries. Heart: The heart is enlarged and without pericardial effusion. There are coronary artery calcifications. Lungs and pleural spaces: Emphysema is noted. No airspace consolidation or pleural effusion is identified. Bibasilar scarring versus atelectasis is observed. The trachea and central airways are clear. There are scattered calcified granulomas. Lower neck: No supraclavicular adenopathy is seen. Mediastinum: There are scattered subcentimeter mediastinal lymph nodes. These are not pathologically enlarged by size criteria. Linda: Clear. Axillae: There is a 5.6 x 7.4 cm water attenuation mass in the left axilla seen on image 38. This is not significantly changed from 10/11/2015. No additional axillary lymph nodes are identified. Bony thorax: The skeletal structures are osteopenic. Degenerative change and hyperkyphosis are noted in the thoracic spine. There are superior endplate compression deformity is of T2 and T4. No lytic or blastic lesions are identified. ABDOMEN AND PELVIS: Liver: The contrast-enhanced liver is normal in size, contour, and attenuation. There is no intrahepatic or ductal dilatation. The hepatic veins and portal veins are patent. A 2.5 cm cyst is noted in the right lobe. Additional subcentimeter hepatic hypodensities also likely represent cysts but are too small for definitive characterization. Gallbladder: Unremarkable. Spleen: Normal in size and attenuation, measuring 12.4 cm in length. Pancreas: Moderately atrophic and grossly unremarkable. Adrenal glands: Small bilateral adrenal nodules are unchanged. These likely represent adenomas but cannot be definitively characterized on this contrast-enhanced examination. Kidneys: The contrast enhanced kidneys are atrophic and without hydronephrosis. The kidneys enhance symmetrically. Numerous bilateral renal cysts measure up to 5.0 cm. There are also several complex lesions identified arising from both kidneys which do not meet CT criteria for simple cysts. The largest arising from the right kidney is seen on image #163 and measures 4.9 cm, and the largest on the left is seen on image #174 and measures 2.2 cm. These are unchanged from 10/11/2015 and likely represent complex/proteinaceous cysts. Abdominal vasculature: The abdominal aorta is normal in course and caliber noting advanced atherosclerotic calcification. Stomach and bowel: There is a tiny hiatal hernia. The stomach and duodenum otherwise normal in configuration. No bowel obstruction is seen. There are scattered colonic diverticula without CT evidence of acute diverticulitis. The appendix is well-visualized and normal. Peritoneum: There is no intraperitoneal free air or abdominal ascites. Lymphadenopathy: None. Pelvic viscera: The prostate gland is diminutive and heterogeneous. The bladder is partially decompressed and grossly unremarkable. Skeletal structures: The skeletal structures are osteopenic. There is mild to moderate lumbar sacral spondylosis and scoliosis. No lytic or blastic lesions are seen. IMPRESSION: 1. There is unchanged appearance of a 7.4 cm cystic lesion in the left axilla as compared to 2006. 2. No pathologically enlarged lymph nodes are identified in the chest, abdomen, or pelvis. 3. The spleen is normal in size. 4. Cardiomegaly and emphysema. 5. No airspace consolidation or pleural effusion is identified. 6. There are no acute infectious or inflammatory findings in the abdomen or pelvis. 7. There are numerous bilateral simple renal cysts as well as indeterminant cortical hypodensities that likely represent complex cysts. These have not significantly changed from 10/11/2015. 8. Additional findings as above. Electronically signed by: Jorge Huber M.D. 10/22/2017 4:04 PM Dictated Date/Time: 10/22/2017 3:51 PM
== END | disposition home or self-care (01) ==
LOC: C.CTS 14:30
PROVIDERS: ATTEND Nurse Practitioner Family
DX: C82.81 Other types of follicular lymphoma, lymph nodes of head, face, and neck (principal); I51.7 Cardiomegaly; J43.9 Emphysema, unspecified; N28.1 Cyst of kidney, acquired; I70.0 Atherosclerosis of aorta

== ENCOUNTER → 2017-10-22 | Outpatient (CLI) | payer OTHER ==
[~2017-10-22] MED LIST changes: -OPTIRAY 320 IV PRN
--- NOTE | 2017-10-23 05:28 | PAP/PSG TECHNICIAN REPORT ---
[facility] Estate Administrator Polysomnogram Report Study name: None Report date: 10/23/2017 Study date: 10/22/2017 Referring Physician: Dwain Solis M.D. Name: BHAVANI WOODWARD Interpreting Physician: Dwain Solis M.D. Date of : 1935 Estate Administrator: Kiara Pantoja RPSGT. Sex: Male Age: 82 StudyType: PSG PAP Weight: 252.9 lbs Height: 82 years, Height 5' 10" Neck Circum:18inches BMI: 36.28 Medications: Atorvastatin 10mg, Cartia XT 240mg, Doxazosin Mesylate 4mg, Furosemide 20mg, Gabapentin 100mg, Meyoprolol 50mg, Symbicort 160-4.5mcg/act, Toviaz 8mg, Warfarin 1mg and 3mg, Zostrix Arthritis 0.025% CREAM Patient History Study started on room air with 5cwp CPAP in room #6. 82 yr old male here tonight for a new titration study. He had a HST that had an CELESTINO of 54.4 and showed hypoxemia. His ESS=6/24. Neck circ=18 inches. Parameters Monitored NPSG: E1-M2, E2-M1, Fp1-M2, Fp2-M1, F3-M2, F4-M2, F4-M1, C3-M2, C4-M2, C4-M1, O1-M2, O2-M2, O2-M1, T3-M2, T4-M1, P3-M2, P4-M1, CHIN1, CHIN2, HR, EKG, Legs, PFLOW, SNOR, FLOW, CFLOW, Tidal Volume, THOR, ABDO, SpO2, PLTH, CPRESS, ETCO2 Wave, ETCO2, pH Sleep Architecture Sleep Stages Time at Lights Off 8:47:25 PM STAGES Time (min.) TST (%) Time at Lights On 5:17:25 AM Wake 63.5 -- Total Recording Time (TRT) 510.00 min. N1 13.0 3 Total Sleep Period (TSP) 504.5 min. N2 233.0 52 Total Sleep Time (TST) 446.5min. N3 84.0 19 Awake Time 63.5 min. REM 116.5 26 Wake after Sleep Onset 59.5 min. Sleep Efficiency (SE) 88 % Sleep Onset Latency (JAIDA) 4.0 min. Number of Stage 1 Shifts None Awakenings 23 Stage Changes 90 Number of REM periods 8 REM 116.5 26 REM Latency 99.0 min. NREM 330.0 74 Body Position Analysis Supine Right Left Side Prone Vertical Total Sleep Time (min.) 78.3 0.0 370.1 370.09 23.8 0.0 Total Sleep Time (%) 13% 0% 83% 83 4% N/A% Total Sleep Time REM (min.) 0.0 0.0 116.5 None 0.0 0.0 Total Sleep Time NREM (min.) 57.5 0.0 253.6 None 18.9 0.0 Intermittent Wake (min.) 20.8 0.0 37.8 None 4.9 0.0 Total Sleep Period (%) 15% None None None None None Arousals Myoclonus (PLM) * Events Count Index Events Count Index Spontaneous 11 1 Events Awake (PLMW) 75 70.9 Respiratory 7 1.5 Events Asleep w/ Arousal (PLMA) 9 1.2 PLM 9 1 Events Asleep w/o Arousal (PLMS) 489 65.7 Snoring 0 0 Total Asleep 498 66.9 Total 27 4 Total 573 67 Respiratory Analysis * CA OA MA CH H RERA Total Count 1 7 0 0 73 0 81 Index 0.1 0.9 0.0 0 9.8 0 10.9 Mean Duration 26.0 22.9 0.0 0.00 23.7 0.0 23.7 Longest Duration 26.0 48.9 0.0 0.00 0.0 0.0 48.9 Respiratory Event Summary Total Supine ~Supine Right Left Prone REM NREM Apneas Count 8 5 3 N/A 3 0 2 6 Index 1.1 5 0 N/A 0.5 0 1 1 Hypopneas (4% Desat) Count 73 46 27 N/A 23 4 3 70 Index 9.8 48.0 4 N/A 3.7 12.7 1.5 12.7 Apneas & All Hypopneas Count 81 51 30 N/A 26 4 5 76 Index 10.9 53 5 N/A 4 13 2.6 13.8 Respiratory Events (Data Entry Supervisor+All Hyp+RERA) Count 81 51 30 N/A 26 4 5 76 Index 10.9 53 5 N/A 4.2 12.7 2.6 13.8 Respiratory Related Arousal Count 7 51 6 N/A 5 1 1 10 Index 1.5 5 1 N/A 1 3 1 2 Snoring Analysis Supine Right Left Prone REM NREM Total Snore duration 3.0 min Snores count 28 N/A 50 4 20 62 82 Snore mean duration 2.2 Sec Snores index 29 N/A 8 13 10.3 11.3 11.0 TST with snoring (%) 0.7% Desaturation Event Summary: Minimum %SpO2 Event Count Mean/Min/Max Duration(sec.) Desaturation Index % Time In Bed > 90 107 26.5 / 4.8 / 49.0 15.4 84.6 86 - 90 38 25.5 / 10.0 / 46.3 33.7 13.7 81 - 85 2 29.5 / 7.5 / 51.5 14.3 1.7 76 - 80 0 N/A 0.0 0.0 71 - 75 0 N/A 0.0 0.0 66 - 70 0 N/A 0.0 0.0 61 - 65 0 N/A 0.0 0.0 56 - 60 0 N/A 0.0 0.0 51 - 55 0 N/A 0.0 0.0 < 50 0 N/A 0.0 0.0 Total REM NREM Awake <50% 0.0 min. 0.0 min. 0.0 min. 0.0 min. 51 - 60% 0.0 min. 0.0 min. 0.0 min. 0.0 min. 61 - 70% 0.0 min. 0.0 min. 0.0 min. 0.0 min. 71 - 80% 0.1 min. 0.0 min. 0.0 min. 0.1 min. 81 - 90% 76.1 min. 0.0 min. 57.3 min. 18.8 min. 91 - 100% 417.7 min. 116.3 min. 269.9 min. 31.5 min. Average 92 93 92 91 Minimum SpO2 80 90 81 80 Desaturation Event Index 14.2 2.1 16.5 27.4 # Desat. Events below 89% 73 N/A 61 12 Time(%) with Saturation below 89% 6.4 0.0 4.8 1.6 Time(min.) with Saturation below 89% 31.6 0.0 23.9 7.7 Time (mins) REM (mins) NREM (mins) % of TST SpO2 Below 90% 78 N/A N78 8.4 SpO2 Below 88% 25 0 0 3 Heart Rate Analysis Min (bpm) Max (bpm) Average (bpm) Awake 54 176 83 NREM 49 250 75 REM 47 94 76 Overall 47 250 75 Supplemental O2 Values Minimum O2 level: None Value Start Time End Time Estate Administrator Comments Mr. Woodward slept in the left, supine and prone positions. Cardiac arrhythmia and PLM's noted, please see print outs. No bruxism noted. CPAP was initiated at +5 CMH2O and up-titrated to an optimal level of +15 CMH2O, which nearly eliminated all respiratory events and snoring. A large Mirage Quattro full face mask by [employer] was used during titration. He awoke to use the restroom once during the night. He stated that he slept fair. The final report will be interpreted and signed by a sleep physician. The completed physician report will then be placed in the patient medical record. Therapy Event: Therapy (cm H20) 5 7 9 11 13 15 Total Time at Pressure (min.) 6.7 8.2 11.0 46.9 42.0 395.1 TST at Pressure (min.) 2.7 7.7 10.5 32.9 33.0 359.6 # Periods 1 1 1 1 1 1 Sleep Onset (min.) 4.0 0.0 0.0 0.0 0.0 0.0 REM Onset (min.) N/A N/A N/A N/A 30.2 26.1 Sleep Efficiency % 40 93 95 70 78 91 Wakefulness (%) 60.0 6.1 4.5 29.8 21.4 9.0 Wakefulness (min.) 4.0 0.5 0.5 14.0 9.0 35.5 NREM 1 (%) 7.5 6.1 4.5 8.5 3.6 1.5 NREM 1 (min.) 0.5 0.5 0.5 4.0 1.5 6.0 NREM 2 (%) 32.5 87.8 90.9 61.6 44.1 42.0 NREM 2 (min.) 2.2 7.2 10.0 28.9 18.5 166.1 NREM 3 (%) 0.0 0.0 0.0 0.0 26.2 18.5 NREM 3 (min.) 0.0 0.0 0.0 0.0 11.0 73.0 REM (%) 0.0 0.0 0.0 0.0 4.8 29.0 REM (min.) 0.0 0.0 0.0 0.0 2.0 114.5 # Arousals 0 0 2 7 3 15 Arousal Index 0.0 0.0 11.4 12.8 5.4 2.5 # Snore 0 2 4 16 16 44 Snore Index 0.0 15.5 22.8 29.2 29.1 7.3 AHI 67.5 62.1 57.1 47.4 30.9 2.8 AHI Supine 67.5 62.1 57.1 47.4 65.4 N/A AHI Non-Supine N/A N/A N/A N/A 26.6 2.8 NREM AHI 67.5 62.1 57.1 47.4 32.9 2.9 REM AHI N/A N/A N/A N/A 0.0 2.6 RDI 67.5 62.1 57.1 47.4 30.9 2.8 # Obstructive 0 0 0 3 1 3 # Central Ap 0 0 0 1 0 0 # Mixed 0 0 0 0 0 0 # Hypopneas 3 8 10 22 16 14 RERAS 0 0 0 0 0 0 Total Respiratory Events 3 8 10 26 17 17 Time Below SpO2 89.00% (min.) 1.5 3.9 5.7 10.9 1.8 0.2 Mean NREM SpO2 (%) 88 88 88 90 91 93 Mean REM SpO2 (%) N/A N/A N/A N/A 91 93 Mean Sleep SpO2 (%) 88 88 88 90 91 93 Min NREM SpO2 (%) 84 81 81 81 85 82 Min REM SpO2 (%) N/A N/A N/A N/A 90 91 Position Supine (min.) 2.7 7.7 10.5 32.9 3.7 0.0 Position Non-supine (min.) 0.0 0.0 0.0 0.0 29.4 359.6 LM Index Sleep 0.0 7.8 28.5 93.0 49.0 69.1 LM Index NREM 0.0 7.8 28.5 93.0 52.2 77.3 LM Index REM N/A N/A N/A N/A 0.0 51.4 Mean Heart Rate (bpm) 63 64 66 67 71 77 Min Heart Rate (bpm) 55 52 56 54 47 60
--- NOTE | 2017-10-23 15:11 | POLYSOMNOGRAPH REPORT ---
CLINICAL DATA: An 82-year-old male with A BMI of 36.[address] Rusty Felder and myself for a CPAP titration study. He had a home sleep apnea test which showed a severe EARLINE with an CELESTINO of 54.4 with nocturnal hypoxemia. SLEEP ARCHITECTURE: Total sleep period was 504.5 minutes. Total sleep time was 446.5 minutes divided between 330 minutes of non-REM sleep and 116.5 minutes of REM sleep. Sleep onset latency was 4 minutes. REM latency was 99 minutes. Sleep efficiency was 88%. Wake after sleep onset was 59.5 minutes. Sleep consisted of stage N1 3%, stage N2 52%, stage N3 19%, and REM 26%. AROUSAL DATA: 27 arousals were recorded for an index of 7 per hour. PLM DATA: Severe PLMD was noted. There were 498 limb movements during sleep noted for an index of 67 per hour with arousal index of 1.2 per hour. RESPIRATORY DATA: The AHI was 10.9. There was 1 central and 7 obstructive apneic episodes. The longest duration of apnea was 49 seconds. There were 72 hypopneic episodes with a mean duration of 23.7 seconds. OXIMETRY DATA: Nocturnal hypoxemia was seen. Oxygen carlos was 81%. Mean saturation was 92%. Time below 88% was 25 minutes. EKG: Heart rates ranged from 49-94 beats per minute. Episodes of atrial fibrillation were seen throughout the night. CONSTRUCTION CARPENTER'S COMMENTS: The patient slept in the left, supine, and prone positions. CPAP was started at 5 cm of water pressure using a large Mirage Quattro full facemask by [employer]. The patient was titrated up to his final pressure setting of 15 cm of water pressure. At this final pressure setting, the patient slept for 360 minutes with an AHI of 2.8. IMPRESSION: Severe sleep apnea/hypopnea corrected with CPAP at 15 cm of water pressure, large Mirage Quattro full facemask by [employer]. RECOMMENDATIONS: The patient should be started on the above noted treatment regimen and seen back in followup within 90 days to document efficacy and compliance. [facility]
== END | disposition home or self-care (01) ==
LOC: C.NEUR 20:00
PROVIDERS: ATTEND Internal Medicine Pulmonary Disease
DX: G47.33 Obstructive sleep apnea (adult) (pediatric) (principal); I48.2 Chronic atrial fibrillation; R53.83 Other fatigue

== ENCOUNTER → 2017-11-27 | Outpatient (CLI) | payer OTHER | END | disposition home or self-care (01) | LOC: C.MAMM 08:06 | PROVIDERS: ATTEND Internal Medicine Geriatric Medicine | DX: S22.000A Wedge compression fracture of unspecified thoracic vertebra, initial encounter for closed fracture (principal); X58.XXXA Exposure to other specified factors, initial encounter; M81.0 Age-related osteoporosis without current pathological fracture; M85.89 Other specified disorders of bone density and structure, multiple sites ==

== ENCOUNTER → 2017-12-31 | Outpatient (CLI) | payer OTHER | END | disposition home or self-care (01) | LOC: C.RDSM 09:00 | PROVIDERS: ATTEND Physical Medicine & Rehabilitation Sports Medicine | DX: M25.561 Pain in right knee (principal); M25.562 Pain in left knee; Z96.659 Presence of unspecified artificial knee joint ==

== ENCOUNTER → 2018-01-01 | Outpatient (CLI) | payer OTHER ==
--- NOTE | 2018-01-01 12:25 | DIAGNOSTIC IMAGING REPORT ---
CHEST 2 VIEWS ROUTINE HISTORY: 82 years-old Male R09.89 Chest [id number] acute chest pain and cough with congestion COMPARISON: CT chest 10/22/2017, chest radiograph 12/05/2016 TECHNIQUE: PA and lateral views of the chest FINDINGS: Cardiac silhouette is again enlarged, unchanged. Atherosclerosis of the aorta. No pneumothorax, pleural effusion, lobar airspace consolidation or overt pulmonary edema. Linear subsegmental bibasilar opacities suggest atelectasis. Mild emphysematous changes redemonstrated. Bones of the chest appear grossly intact. IMPRESSION: 1. Emphysema with mild subsegmental bibasilar atelectasis. 2. Cardiomegaly without overt pulmonary edema. The above report was generated using voice recognition software. It may contain grammatical, syntax or spelling errors. Electronically signed by: Reginaldo Barbour M.D. 01/01/2018 12:24 PM Dictated Date/Time: 01/01/2018 12:22 PM
== END | disposition home or self-care (01) ==
LOC: C.RAD1850 10:33
PROVIDERS: ATTEND Physician Assistant
DX: R09.89 Other specified symptoms and signs involving the circulatory and respiratory systems (principal)

== ENCOUNTER → 2018-04-09 | Outpatient (CLI) | payer OTHER ==
[2018-04-09 17:13] LABS: HEMATOCRIT 32.8 % (42-52); HEMOGLOBIN 10.4 g/dL (14.0-18.0); MEAN CELL VOLUME 99.7 fL (80-100); MEAN CORPUSCULAR HEMOGLOBIN 31.6 pg (25-34); MEAN CORPUSCULAR HGB CONC 31.7 g/dl (32-36); MEAN PLATELET VOLUME 9.8 fL (7.4-10.4); PLATELET COUNT 164 K/uL (130-400); RED CELL DISTRIBUTION WIDTH CV 15.8 % (11.5-14.5); RED CELL DISTRIBUTION WIDTH SD 57.2 fL (36.4-46.3); WHITE BLOOD COUNT 3.95 K/uL (4.8-10.8)
[2018-04-09 17:23] LABS: ALBUMIN 3.3 gm/dl (3.4-5.0); BLOOD UREA NITROGEN 27 mg/dl (7-18); CALCIUM 8.3 mg/dl (8.5-10.1); CARBON DIOXIDE 25 mmol/L (21-32); CREATININE 1.68 mg/dl (0.60-1.40); GLUCOSE 90 mg/dl (70-99); PHOSPHORUS 2.8 mg/dl (2.5-4.9); POTASSIUM 4.3 mmol/L (3.5-5.1); SODIUM 142 mmol/L (136-145)
== END | disposition home or self-care (01) ==
LOC: C.LABBC 12:12
PROVIDERS: ATTEND Internal Medicine Nephrology
DX: I12.9 Hypertensive chronic kidney disease with stage 1 through stage 4 chronic kidney disease, or unspecified chronic kidney disease (principal); N18.3 Chronic kidney disease, stage 3 (moderate); N25.81 Secondary hyperparathyroidism of renal origin; D64.9 Anemia, unspecified; N20.0 Calculus of kidney

== ENCOUNTER → 2018-04-23 | Outpatient (CLI) | payer OTHER ==
[2018-04-23 13:28] LABS: BASO % 0.2 %; BASO ABS # 0.01 K/uL (0-0.2); EOS % 2.7 %; EOS ABS # 0.15 K/uL (0-0.5); HEMATOCRIT 30.5 % (42-52); HEMOGLOBIN 9.8 g/dL (14.0-18.0); IG# 0.02 K/uL (0.00-0.02); LYMPH % 15.5 %; LYMPH ABS # 0.86 K/uL (1.2-3.4); MEAN CORPUSCULAR HEMOGLOBIN 31.8 pg (25-34); MEAN CORPUSCULAR HGB CONC 32.1 g/dl (32-36); MEAN PLATELET VOLUME 9.9 fL (7.4-10.4); MONO % 12.8 %; MONO ABS # 0.71 K/uL (0.11-0.59); NEUT % 68.4 %; NEUT ABS # 3.81 K/uL (1.4-6.5); PLATELET COUNT 157 K/uL (130-400); RED CELL DISTRIBUTION WIDTH CV 15.5 % (11.5-14.5); RED CELL DISTRIBUTION WIDTH SD 55.9 fL (36.4-46.3); WHITE BLOOD COUNT 5.56 K/uL (4.8-10.8)
[2018-04-23 13:35] LABS: BLOOD UREA NITROGEN 37 mg/dl (7-18); CALCIUM 9.2 mg/dl (8.5-10.1); CARBON DIOXIDE 26 mmol/L (21-32); CREATININE 1.75 mg/dl (0.60-1.40); GLUCOSE 96 mg/dl (70-99); POTASSIUM 4.3 mmol/L (3.5-5.1); SODIUM 141 mmol/L (136-145)
== END | disposition home or self-care (01) ==
LOC: C.LABBC 11:32
PROVIDERS: ATTEND Physician Assistant Medical
DX: T14.90XA Injury, unspecified, initial encounter (principal); W19.XXXA Unspecified fall, initial encounter; D64.9 Anemia, unspecified

== ENCOUNTER → 2018-05-13 | Outpatient (CLI) | payer OTHER | END | disposition home or self-care (01) | LOC: C.LABBC 09:58 | PROVIDERS: ATTEND Physician Assistant Medical | DX: R35.0 Frequency of micturition (principal) ==

== ENCOUNTER 2021-10-09 15:13 | Inpatient (IN) ==
[2021-10-09] MEDS ORDERED: SODIUM CHLORIDE 0.9% 250 ML IV PRN ×2 (15:56→23:50)
[2021-10-09] MEDS ORDERED: SODIUM CHLORIDE 0.9% 500 ML IV SCH (16:00)
[2021-10-09 16:15] LABS: Basophils # (auto) 0.01 K/uL (0-0.2); Basophils % (auto) 0.1 %; Eosinophils # (auto) 0.13 K/uL (0-0.5); Eosinophils % (auto) 1.6 %; Hematocrit (blood only) 28.2 % (42-52); Hemoglobin 8.1 g/dL (14.0-18.0); Lymphocytes # (auto) 0.47 K/uL (1.2-3.4); Lymphocytes % (auto) 5.9 %; Mean Corpuscular Hemoglobin 22.6 pg (25-34); Mean Corpuscular Hgb Conc 28.7 g/dL (32-36); Mean Corpuscular Volume 78.8 fL (80-100); Monocytes # (auto) 1.01 K/uL (0.11-0.59); Monocytes % (auto) 12.8 %; Neutrophils # (auto) 6.28 K/uL (1.4-6.5); Neutrophils % (auto) 79.6 %; Platelet Count 364 K/uL (130-400); RDW Coefficient of Variation 18.9 % (11.5-14.5); RDW Standard Deviation 55.1 fL (36.4-46.3); Red Blood Count 3.58 M/uL (4.7-6.1)
--- NOTE | 2021-10-09 16:25 | Emergency Department Note ---
Impression & Plan Hypotension, Weakness, Acute GI bleeding, Anemia, Acute dehydration, Abnormal abdominal CT scan, Coagulopathy ED Provider Note NAME: BHAVANI WOODWARD AGE: 86 SEX: M : 1935 ARRIVES VIA: Walk-In INFORMANT: [Patient][] ED PROVIDER(S): [Jorge Peterson MD] CHIEF COMPLAINT: Weakness HISTORY OF PRESENT ILLNESS: The patient is an 86-year-old male who has a history of chronic atrial fibrillation on anticoagulation. The patient has had increasing weakness for around 5 days. He has no energy. He just wants to lay in bed. He has had no appetite. He is not eating or drinking well. No black or bloody stool, no diarrhea. He does feel a bit short of breath but there has been no cough, no documented fever. The patient was at the cancer center today, he had laboratory work done showing an anemia. His hemoglobin was in the mid sevens and typically, he is around 8. He was sent here for the possibility of a blood transfusion. The patient's INR was recently recorded high at around 7. He states he is taking his Coumadin as instructed. He denies any areas of bleeding. The patient is vaccinated for COVID-19 x3. He has had his influenza vaccination. He has had no known COVID exposures. REVIEW OF SYSTEMS: See HPI for pertinent positives and negatives. A total of ten systems were reviewed and were otherwise negative. PMHx/PSHx: See Below SOCIAL HISTORY: See Below. PHYSICAL EXAM: GENERAL: Patient is in no acute distress. HEENT: No acute trauma, normocephalic atraumatic, mucous membranes moist, no nasal congestion, no scleral icterus. NECK: No stridor, no adenopathy, no meningismus, trachea is midline. LUNGS: Clear to auscultation bilaterally, no wheeze, no rhonchi, breath sounds equal. HEART: Bradycardic, slightly irregular, no obvious murmur. ABDOMEN: Soft, mildly tender to moderately tender in the left upper and mid abdomen, sounds positive, no peritonitis. EXTREMITIES: No cyanosis or edema, full range of motion of all the joints without pain or difficulty, no signs for acute trauma. NEUROLOGIC: Awake, no acute motor or sensory deficits, no focal weakness. Prefers eyes closed. Follows commands. SKIN: No rash, no jaundice, no diaphoresis. Pale. Rectal: Dark, black-colored stool, heme positive DIFFERENTIAL DIAGNOSIS: Infection, dehydration, metabolic abnormality, COVID-19, influenza, renal or liver failure, coagulopathy, hypo/hyperglycemia, electrolyte disturbance, anemia, hypoxia, cardiac sources, intracerebral event, toxicologic issues, stroke, TIA, as well as other pathologies. EMERGENCY DEPARTMENT COURSE/PROCEDURES: ECG: Indication was weakness. The ECG shows atrial fibrillation with a rate of 58. There is diminished amplitude to his ECG. There is some baseline artifact. No obvious ST elevation, no PVCs. The QTc is 394. Continuous Cardiac Monitoring: An order was placed for continuous cardiac monitoring. The monitor shows a rate of 54 with atrial fibrillation. Critical Care Note: I have personally spent 48 minutes of critical care time in the direct management of this patient. This includes bedside care, interpretation of diagnostic studies, and testing, discussion with consultants, patient, and family members, and other required patient management activities. This 48 minutes is in excess of all separately billable procedures. MEDICAL DECISION MAKING: There is no leukocytosis. The patient is anemic with a hemoglobin of 8.1. The patient carries a history of anemia and today's value is not far off from his baseline. There is a normal platelet count. INR is quite high at 6.2, he is over anticoagulated. There is some renal insufficiency but this appears baseline when looking back at previous testing. No worrisome electrolyte abnorm ality in need of emergent correction. No concerning liver enzyme elevation. The patient appears to be in a euthyroid state. Urinalysis shows some dehydration, no infection. COVID, influenza and RSV testing returned negative. Chest x-ray does not show pneumonia or CHF. Abdominal and pelvis CT shows a mass in his colon concerning for malignancy. On exam, the patient appeared weak and dehydrated. He was pale in appearance. Stool was black and heme positive. Patient is coagulopathic and bleeding from his GI tract. Patient received IV saline, 1 L. He was given IV vitamin K for his coagulopathy. He was given IV Protonix. Blood was ordered for a potential upcoming red blood cell trans fusion. The patient is in need of a hospital stay. He has findings that require further work-up. He very likely is going to require a packed red blood cell transfusion in the next 24 hours. I suspect his hemoglobin will drop with the proper hydration. He does not require an emergent blood transfusion in the ED. I spoke with the patient, I talked with the patient's , I did talk with the social work case manager. The on-call hospitalist was consulted. Of note, the patient's blood pressure was a bit low when he arrived, his BP improved with IV hydration Past Med/Surg History Medical History (Updated 10/09/21 @ 19:16 by Jorge Peterson MD) Arteriosclerosis of aorta CT 09/[address] 09/2017 stable Chronic diastolic CHF (congestive heart failure) Chronic kidney disease, stage 3 (moderate) Chronic obstructive pulmonary disease Dementia Kidney failure Meningioma Nephrolithiasis Non-Hodgkin lymphoma Permanent atrial fibrillation Secondary hyperparathyroidism Severe sleep apnea CPAP Vitamin D deficiency Surgical History H/O colonoscopy History of knee replacement procedure of left knee 2008 History of knee replacement procedure of right knee 2008 History of removal of Port-a-Cath insertion of [place] on left chest wall 06/13/14 Dr. Magana removal infusaport 06/13/15 Family History Father Pulmonary embolism Stroke Mother Stroke syndrome Hypertension Stroke Unknown Diabetes Heart disease Hypertension Nephrolithiasis Cancer Denies family history of Ovarian cancer Prostate cancer Myocardial infarction Breast cancer Lung cancer Colorectal cancer Social History Smoking Status: Never smoker Tobacco Type: Cigarettes Second Hand Exposure: No; Hx Alcohol Use: No Hx Substance Use: No Preferred Language: Turkmen Communication Ability: Effective Visual Impairment: Limited Hearing Ability: Hard of Hearing Mainframe Programmer Required: No marital status: Current Living Situation: Spouse current occupational status: retired How many Children do You have: 2 Feels Safe at Home: Yes Childhood Exposure to Second-Hand Smoke: Yes caffeine: Yes Dental Care, Regularly: Yes Physical Activity Frequency: Does not Exercise Seatbelt Use: always Sunscreen Use: No Allergies Allergies Allergy/AdvReac Type Severity Reaction Status Date / Time doxycycline Allergy Hives, Rash Verified 10/09/21 15:54 hydrocodone Allergy Unknown Verified 10/09/21 15:54 Home Meds Home Medications Medication Instructions Recorded Confirmed multivitamin 1 tab PO DAILY 06/02/18 10/09/21 cholecalciferol (vitamin D3) 50 2,000 unit PO QAM cap 04/28/19 10/09/21 mcg (2,000 unit) capsule acetaminophen 500 mg capsule 1,000 mg PO BID PRN cap 11/18/19 10/09/21 epoetin jose a [Procrit] 1 ea SUBCUT .COMPLEX 04/19/20 10/09/21 methocarbamol 500 mg tablet 500 mg PO HS tab 10/30/20 10/09/21 coenzyme Q10 200 mg capsule (Co 100 mg PO QAM cap 02/22/21 10/09/21 Q-10) iron infusion 1 dose IV UD 05/01/21 10/09/21 atorvastatin 10 mg tablet (Lipitor) 10 mg PO QAM tab 07/11/21 10/09/21 alfuzosin 10 mg tablet,extended 10 mg PO QPM 10/09/21 10/09/21 release 24 hr (Uroxatral) budesonide-formoterol HFA 80 2 puff INHALATION QAM 10/09/21 10/09/21 mcg-4.5 mcg/actuation aerosol inhaler (Symbicort) diltiazem HCl 240 mg 240 mg PO QAM 10/09/21 10/09/21 capsule,extended release 24 hr (Cardizem CD) docusate sodium 100 mg capsule 100 mg PO BID 10/09/21 10/09/21 (Colace) donepezil 10 mg tablet 10 mg PO HS 10/09/21 10/09/21 mirabegron 50 mg tablet,extended 50 mg PO QAM 10/09/21 10/09/21 release 24 hr (Myrbetriq) warfarin 3 mg tablet See Rx Instructions PO UD tab 10/09/21 10/09/21 Previous Rx's Medication Instructions Recorded furosemide 20 mg tablet (Lasix) 20 mg PO Q OTHER DAY #45 tab 04/09/21 metoprolol tartrate 50 mg tablet 50 mg PO BID #180 tab 07/03/21 (Lopressor) alendronate 70 mg tablet 70 mg PO WEEKLY #12 tab 09/05/21 Results & Data (ED) Vital Signs Vital Signs - 24 hr 10/09/21 15:18 10/09/21 15:30 10/09/21 16:06 Temperature 35.4 C L Temperature Source Temporal Artery Scan Pulse Rate 51 L 57 L 54 L Pulse Rate [Radial] Pulse Rate from SpO2 Sensor 63 56 L Pulse Rhythm [Radial] Pulse Strength [Radial] Respiratory Rate 16 22 22 Respiratory Effort / Characteristics Non-Labored Spontaneous Respiratory Depth Normal Blood Pressure 96/54 L 112/59 L 92/73 L Blood Pressure [Right Arm] Blood Pressure Mean 68 76 79 Blood Pressure Mean [Right Arm] Blood Pressure Position [Right Arm] Pulse Oximetry 96 90 98 Oxygen Delivery Method Room Air Room Air Room Air Sepsis Recent Fever Within 48 Hours No Sepsis New/Unexplained Change in Mental Status N/A Sepsis Action Taken by Nursing No Action Required 10/09/21 17:00 10/09/21 17:56 10/09/21 18:00 Temperature 37.1 C Temperature Source Oral Pulse Rate 58 L 64 Pulse Rate [Radial] 66 Pulse Rate from SpO2 Sensor 57 L 59 L Pulse Rhythm [Radial] Regular Pulse Strength [Radial] Normal Respiratory Rate 21 21 22 Respiratory Effort / Characteristics Non-Labored Respiratory Depth Normal Blood Pressure 115/62 Blood Pressure [Right Arm] 140/67 Blood Pressure Mean 79 Blood Pressure Mean [Right Arm] 91 Blood Pressure Position [Right Arm] Lying Pulse Oximetry 98 100 100 Oxygen Delivery Method Room Air Room Air Room Air Sepsis Recent Fever Within 48 Hours Sepsis New/Unexplained Change in Mental Status Sepsis Action Taken by Nursing 10/09/21 18:15 10/09/21 18:30 10/09/21 19:04 Temperature Temperature Source Pulse Rate 67 69 Pulse Rate [Radial] Pulse Rate from SpO2 Sensor 68 73 Pulse Rhythm [Radial] Pulse Strength [Radial] Respiratory Rate 23 23 Respiratory Effort / Characteristics Respiratory Depth Blood Pressure 134/73 114/77 Blood Pressure [Right Arm] Blood Pressure Mean 93 89 Blood Pressure Mean [Right Arm] Blood Pressure Position [Right Arm] Pulse Oximetry 99 95 97 Oxygen Delivery Method Room Air Room Air Room Air Sepsis Recent Fever Within 48 Hours Sepsis New/Unexplained Change in Mental Status Sepsis Action Taken by Skilled Nursing Medications Current Medication List: was personally reviewed by me Laboratory Data Attestation: I reviewed the patient's lab results. Result diagrams: 10/09/21 15:35 10/09/21 15:35 Lab Results 10/09/21 10/09/21 10/09/21 Range/Units 15:35 15:35 15:35 WBC 7.90 (4.8-10.8) K/uL RBC 3.58 L (4.7-6.1) M/uL Hgb 8.1 L (14.0-18.0) g/dL Hct 28.2 L (42-52) % MCV 78.8 L (80-100) fL MCH 22.6 L (25-34) pg MCHC 28.7 L (32-36) g/dL RDW Std Deviation 55.1 H (36.4-46.3) fL RDW Coeff of Abigail 18.9 H (11.5-14.5) % Plt Count 364 (130-400) K/uL MPV 9.0 (7.4-10.4) fL Immature Gran % (Auto) 0.0 % Neut % (Auto) 79.6 % Lymph % (Auto) 5.9 % Oliver % (Auto) 12.8 % Eos % (Auto) 1.6 % Baso % (Auto) 0.1 % Neut # (Auto) 6.28 (1.4-6.5) K/uL Lymph # (Auto) 0.47 L (1.2-3.4) K/uL Oliver # (Auto) 1.01 H (0.11-0.59) K/uL Eos # (Auto) 0.13 (0-0.5) K/uL Baso # (Auto) 0.01 (0-0.2) K/uL Immature Gran # (Auto) 0.00 (0.00-0.02) K/uL PT 54.1 H (9.0-12.0) Seconds INR 6.2 H* (0.9-1.1) APTT 47.6 H* (21.0-31.0) Seconds PTT Ratio 1.8 Sodium (136-145) mmol/L Potassium (3.5-5.1) mmol/L Chloride (98-107) mmol/L Carbon Dioxide (21-32) mmol/L Anion Gap (3-11) BUN (6-23) mg/dl Creatinine (0.6-1.4) mg/dl Est Cr Clr Drug Dosing Est GFR ( Amer) ml/min Est GFR (Non-Af Amer) ml/min BUN/Creatinine Ratio (10-20) Glucose (70-99(Fasting)) mg/dl Calcium (8.5-10.1) mg/dl Magnesium (1.7-2.4) mg/dl Total Bilirubin (0.2-1.0) mg/dl AST (13-39) U/L ALT (7-52) U/L Alkaline Phosphatase (34-104) U/L Troponin I (0-0.04) ng/ml Total Protein (6.0-8.3) gm/dl Albumin (3.4-5.0) gm/dl Globulin (2.5-4.0) gm/dl Albumin/Globulin Ratio (0.9-2) TSH (0.300-4.500) uIu/ml Urine Color Urine Appearance (Clear) Urine pH (4.5-7.5) Ur Specific [place] (1.000-1.030) Urine Protein (Negative) Urine Glucose (UA) (Negative) Urine Ketones (Negative) Urine Blood (Negative) Urine Nitrite (Negative) Urine Bilirubin (Negative) Urine Urobilinogen (Negative) Ur Leukocyte Esterase (Negative) Urine WBC (Auto) (0-5) /hpf Urine RBC (Auto) (0-4) /hpf U Hyaline Cast (Auto) (0-5) /lpf U Epithel Cells (Auto) (0-5) /lpf Urine Bacteria (Auto) (Negative) Ur Renal Epithelial Cell Urine Yeast SARS-CoV-2 (PCR) (Negative) Influenza Type A (PCR) (Neg) Influenza Type B (PCR) (Neg) RSV (RT-PCR) (Neg) Blood Type O Positive Antibody Screen NEGATIVE Crossmatch See Detail 10/09/21 10/09/21 10/09/21 Range/Units 15:35 15:35 16:25 WBC (4.8-10.8) K/uL RBC (4.7-6.1) M/uL Hgb (14.0-18.0) g/dL Hct (42-52) % MCV (80-100) fL MCH (25-34) pg MCHC (32-36) g/dL RDW Std Deviation (36.4-46.3) fL RDW Coeff of Abigail (11.5-14.5) % Plt Count (130-400) K/uL MPV (7.4-10.4) fL Immature Gran % (Auto) % Neut % (Auto) % Lymph % (Auto) % Oliver % (Auto) % Eos % (Auto) % Baso % (Auto) % Neut # (Auto) (1.4-6.5) K/uL Lymph # (Auto) (1.2-3.4) K/uL Oliver # (Auto) (0.11-0.59) K/uL Eos # (Auto) (0-0.5) K/uL Baso # (Auto) (0-0.2) K/uL Immature Gran # (Auto) (0.00-0.02) K/uL PT (9.0-12.0) Seconds INR (0.9-1.1) APTT (21.0-31.0) Seconds PTT Ratio Sodium 137 (136-145) mmol/L Potassium 4.9 (3.5-5.1) mmol/L Chloride 107 (98-107) mmol/L Carbon Dioxide 22 (21-32) mmol/L Anion Gap 8 (3-11) BUN 33 H (6-23) mg/dl Creatinine 1.57 H (0.6-1.4) mg/dl Est Cr Clr Drug Dosing Not Reportable Est GFR ( Amer) 46.2 ml/min Est GFR (Non-Af Amer) 39.9 ml/min BUN/Creatinine Ratio 21.0 H (10-20) Glucose 99 (70-99(Fasting)) mg/dl Calcium 8.6 (8.5-10.1) mg/dl Magnesium 2.4 (1.7-2.4) mg/dl Total Bilirubin 0.4 (0.2-1.0) mg/dl AST 26 (13-39) U/L ALT 12 (7-52) U/L Alkaline Phosphatase 82 (34-104) U/L Troponin I < 0.03 (0-0.04) ng/ml Total Protein 6.4 (6.0-8.3) gm/dl Albumin 3.3 L (3.4-5.0) gm/dl Globulin 3.1 (2.5-4.0) gm/dl Albumin/Globulin Ratio 1.1 (0.9-2) TSH 2.247 (0.300-4.500) uIu/ml Urine Color Urine Appearance (Clear) Urine pH (4.5-7.5) Ur Specific [place] (1.000-1.030) Urine Protein (Negative) Urine Glucose (UA) (Negative) Urine Ketones (Negative) Urine Blood (Negative) Urine Nitrite (Negative) Urine Bilirubin (Negative) Urine Urobilinogen (Negative) Ur Leukocyte Esterase (Negative) Urine WBC (Auto) (0-5) /hpf Urine RBC (Auto) (0-4) /hpf U Hyaline Cast (Auto) (0-5) /lpf U Epithel Cells (Auto) (0-5) /lpf Urine Bacteria (Auto) (Negative) Ur Renal Epithelial Cell Urine Yeast SARS-CoV-2 (PCR) NEGATIVE (Negative) Influenza Type A (PCR) Negative (Neg) Influenza Type B (PCR) Negative (Neg) RSV (RT-PCR) Negative (Neg) Blood Type Antibody Screen Crossmatch 10/09/21 Range/Units 17:30 WBC (4.8-10.8) K/uL RBC (4.7-6.1) M/uL Hgb (14.0-18.0) g/dL Hct (42-52) % MCV (80-100) fL MCH (25-34) pg MCHC (32-36) g/dL RDW Std Deviation (36.4-46.3) fL RDW Coeff of Abigail (11.5-14.5) % Plt Count (130-400) K/uL MPV (7.4-10.4) fL Immature Gran % (Auto) % Neut % (Auto) % Lymph % (Auto) % Oliver % (Auto) % Eos % (Auto) % Baso % (Auto) % Neut # (Auto) (1.4-6.5) K/uL Lymph # (Auto) (1.2-3.4) K/uL [place] # (Auto) (0.11-0.59) K/uL Eos # (Auto) (0-0.5) K/uL Baso # (Auto) (0-0.2) K/uL Immature Gran # (Auto) (0.00-0.02) K/uL PT (9.0-12.0) Seconds INR (0.9-1.1) APTT (21.0-31.0) Seconds PTT Ratio Sodium (136-145) mmol/L Potassium (3.5-5.1) mmol/L Chloride (98-107) mmol/L Carbon Dioxide (21-32) mmol/L Anion Gap (3-11) BUN (6-23) mg/dl Creatinine (0.6-1.4) mg/dl Est Cr Clr Drug Dosing Est GFR ( Amer) ml/min Est GFR (Non-Af Amer) ml/min BUN/Creatinine Ratio (10-20) Glucose (70-99(Fasting)) mg/dl Calcium (8.5-10.1) mg/dl Magnesium (1.7-2.4) mg/dl Total Bilirubin (0.2-1.0) mg/dl AST (13-39) U/L ALT (7-52) U/L Alkaline Phosphatase (34-104) U/L Troponin I (0-0.04) ng/ml Total Protein (6.0-8.3) gm/dl Albumin (3.4-5.0) gm/dl Globulin (2.5-4.0) gm/dl Albumin/Globulin Ratio (0.9-2) TSH (0.300-4.500) uIu/ml Urine Color Dark Yellow Urine Appearance Clear (Clear) Urine pH 5.0 (4.5-7.5) Ur Specific [place] 1.024 (1.000-1.030) Urine Protein Trace H (Negative) Urine Glucose (UA) Negative (Negative) Urine Ketones Trace H (Negative) Urine Blood Trace H (Negative) Urine Nitrite Negative (Negative) Urine Bilirubin Negative (Negative) Urine Urobilinogen Negative (Negative) Ur Leukocyte Esterase Negative (Negative) Urine WBC (Auto) 1-5 (0-5) /hpf Urine RBC (Auto) 5-10 H (0-4) /hpf U Hyaline Cast (Auto) 10-30 H (0-5) /lpf U Epithel Cells (Auto) >30 H (0-5) /lpf Urine Bacteria (Auto) Negative (Negative) Ur Renal Epithelial Cell Not Reportable Urine Yeast Not Reportable SARS-CoV-2 (PCR) (Negative) Influenza Type A (PCR) (Neg) Influenza Type B (PCR) (Neg) RSV (RT-PCR) (Neg) Blood Type Antibody Screen Crossmatch Administered Medications Discontinued Medications Sodium Chloride (Nss) 500 mls @ 999 mls/hr IV .Q31M MELINA Stop: 10/09/21 16:30 Last Infusion: 10/09/21 16:49 Dose: 0 mls/hr Documented by: [id number] Admin: 10/09/21 16:10 Dose: 999 mls/hr Documented by: [id number] Pantoprazole Sodium 80 mg/ (Dextrose) 100 mls @ 400 mls/hr IV ONE STA Stop: 10/09/21 17:33 Last Infusion: 10/09/21 18:08 Dose: 0 mls/hr Documented by: [id number] Admin: 10/09/21 17:53 Dose: 400 mls/hr Documented by: [id number] Phytonadione 10 mg/ Sodium (Chloride) 51 mls @ 102 mls/hr IV ONE ONE Stop: 10/09/21 17:48 Last Infusion: 10/09/21 18:28 Dose: 0 mls/hr Documented by: [id number] Admin: 10/09/21 17:58 Dose: 102 mls/hr Documented by: [id number] Sodium Chloride (Nss 1000ml) 500 mls @ 999 mls/hr IV .Q31M ONE Stop: 10/09/21 17:49 Last Infusion: 10/09/21 17:50 Dose: 0 mls/hr Documented by: [id number] Admin: 10/09/21 17:19 Dose: 999 mls/hr Documented by: [id number] Imaging Data Radiologist's Impression: Chest X-Ray 10/09/21 15:56 XR chest 1V portable CLINICAL HISTORY: weakness COMPARISON STUDY: Chest radiograph May 01, 2019. FINDINGS: No pneumothorax or pleural effusion is noted. Cardiomegaly is unchanged. There is no radiographic evidence of pulmonary edema. Linear bibasilar opacities favor atelectasis. There is no consolidation to suggest pneumonia. IMPRESSION: No acute cardiopulmonary findings. Cardiomegaly. ACT 112: Negative or not required by law. Electronically signed by: Lex Mitchell M.D. 10/09/2021 4:33 PM Abdomen/Pelvis CT 10/09/21 16:16 CT OF THE ABDOMEN AND PELVIS WITHOUT CONTRAST CLINICAL HISTORY: weak, nausea COMPARISON STUDY: CT of the abdomen and pelvis October 22, 2017. KUB March 18, 2018. TECHNIQUE: Axial images of the abdomen and pelvis were obtained without IV contrast. Images were reviewed in the axial, sagittal, and coronal planes. Automated exposure control was utilized for the study. A dose lowering technique was utilized adhering to the principles of ALARA. FINDINGS: Cardiomegaly is incidentally noted. No pneumatosis, free air or portal venous gas is present. Evaluation of the abdomen and pelvis is suboptimal on this unenhanced exam. The liver, spleen and pancreas are unremarkable with the exception of a few subcentimeter hypodense hepatic lesions which are unchanged since prior CT and reflect cysts. There is no biliary or pancreatic ductal dilatation. There is minimal layering hyperdense material within the gallbladder which could reflect stones or sludge. There is no pericholecystic fluid. There are numerous water attenuation and hyperdense bilateral renal lesions. These are suboptimally assessed on this unenhanced exam but are similar to prior exam. These favor a combination of simple and hyperdense cysts. Multiple bilateral renal calculi are noted. Small left renal pelvis calculus is noted. There are no ureteral calculi. There is no hydronephrosis. Of note, there is marked wall thi ckening of the ascending colon which extends for approximately 8 cm in length. There is moderate adjacent infiltration and trace fluid. No extraluminal gas is present. There are multiple prominent pericolonic lymph nodes which measure up to 7 mm. No evidence for a bowel obstruction. The appendix is normal. No suspicious lesions are identified within visualized skeletal structures. Note is made of a severe L1 compression fracture which is new since CT of October 22, 2017. Mild retropulsion is present. This fracture is not acute. There is also moderate compression fracture of T12 which is new since prior exam but is not acute. Mild compression fractures of T9, T10 and T11 are unchanged. There is trace fluid within the pelvis. Adrenal nodules are unchanged. These are benign. IMPRESSION: 1. Marked wall thickening of the ascending colon which extends for approximately 8 cm in length. This is highly suggestive of neoplasm and likely reflects adenocarcinoma. Lymphoma could appear similar although is statistically less likely. This mass may be ulcerated. Moderate pericolonic infiltration with no extraluminal gas. Adjacent prominent pericolonic lymph nodes but could reflect ronal spread of disease. GI consultation for consideration for colonoscopy is recommended. No bowel obstruction. 2. Bilateral nephrolithiasis. No ureteral calculi or hydronephrosis. 3. Innumerable bilateral renal lesions which are suboptimally assessed on this exam but likely reflect a combination of of simple and hyperdense cysts. 4. Thoracolumbar spine compression fractures, as above. ACT 112: Positive. There are findings on this exam that require communication between the performing entity and the patient following Patient Test Result Information Act ([place] Act 112) guidelines. Electronically signed by: Lex Mitchell M.D. 10/09/2021 5:18 PM Discharge Plan Visit Data Chief Complaint: Cardiac Assessment Stated Complaint: [facility] 7[facility]3 [facility], [facility] FAILURE ED Provider: Jorge Peterson Discharge Problem: Hypotension, Weakness, Acute GI bleeding, Anemia, Acute dehydration, Abnormal abdominal CT scan, Coagulopathy Patient Disposition: Admitted As Inpatient Condition: Fair Forms Stand Alone Forms: My [facility] [employer] Prescriptions Prescriptions: No Action acetaminophen 500 mg capsule 1,000 mg PO BID PRN (Reason: pain) RF: 0 multivitamin Tablet 1 tab PO DAILY RF: 0 warfarin 3 mg tablet See Rx Instructions PO UD RF: 0 cholecalciferol (vitamin D3) 2,000 unit capsule 2,000 unit PO QAM RF: 0 furosemide [Lasix] 20 mg tablet 20 mg PO Q OTHER DAY Qty: 45 RF: 3 metoprolol tartrate [Lopressor] 50 mg tablet 50 mg PO BID Qty: 180 RF: 3 alendronate 70 mg tablet 70 mg PO WEEKLY Qty: 12 RF: 3 methocarbamol 500 mg tablet 500 mg PO HS RF: 0 epoetin jose a 1 ea subcut .COMPLEX RF: 0 iron infusion 1 dose IV UD RF: 0 atorvastatin [Lipitor] 10 mg tablet 10 mg PO QAM RF: 0 coenzyme Q10 [Co Q-10] 200 mg capsule 100 mg PO QAM RF: 0 donepezil 10 mg tablet 10 mg PO HS RF: 0 Myrbetriq 50 mg tablet extended release 24 hr 50 mg PO QAM RF: 0 diltiazem HCl [Cardizem CD] 240 mg capsule,extended release 24hr 240 mg PO QAM RF: 0 alfuzosin [Uroxatral] 10 mg tablet extended release 24 hr 10 mg PO QPM RF: 0 budesonide-formoterol [Symbicort] 80-4.5 mcg/actuation HFA aerosol inhaler 2 puff Inhalation QAM RF: 0 docusate sodium [Colace] 100 mg Capsule 100 mg PO BID RF: 0 Referrals Referrals: Vianca Berrios PA-C [Primary Care Provider] -
--- NOTE | 2021-10-09 16:35 | XRay Report ---
XR chest 1V portable CLINICAL HISTORY: weakness COMPARISON STUDY: Chest radiograph May 01, 2019. FINDINGS: No pneumothorax or pleural effusion is noted. Cardiomegaly is unchanged. There is no radiog raphic evidence of pulmonary edema. Linear bibasilar opacities favor atelectasis. There is no consoli dation to suggest pneumonia. IMPRESSION: No acute cardiopulmonary findings. Cardiomegaly. ACT 112: Negative or not required by law. Electronically signed by: Lex Mitchell M.D. 10/09/2021 4:33 PM
[2021-10-09 16:36] LABS: Troponin I < 0.03 ng/ml (0-0.04)
[2021-10-09 16:49] LABS: Partial Thromboplastin Ratio 1.8; Prothrombin Time 54.1 Seconds (9.0-12.0)
[2021-10-09 16:50] LABS: Alanine Aminotransferase 12 U/L (7-52); Albumin Globulin Ratio 1.1 (0.9-2); Albumin Level 3.3 gm/dl (3.4-5.0); Alkaline Phosphatase 82 U/L (34-104); Anion Gap 8 (3-11); Aspartate Aminotransferase 26 U/L (13-39); Bilirubin,Total 0.4 mg/dl (0.2-1.0); Blood Urea Nitrogen 33 mg/dl (6-23); Calcium 8.6 mg/dl (8.5-10.1); Carbon Dioxide 22 mmol/L (21-32); Chloride 107 mmol/L (98-107); Est GFR (African American) 46.2 ml/min; Est GFR (Non-African American) 39.9 ml/min; Globulin 3.1 gm/dl (2.5-4.0); Glucose 99 mg/dl (70-99(Fasting)); Magnesium 2.4 mg/dl (1.7-2.4); Potassium 4.9 mmol/L (3.5-5.1); Sodium 137 mmol/L (136-145); Total Protein 6.4 gm/dl (6.0-8.3)
[2021-10-09 16:56] LABS: INR 6.2 (0.9-1.1); Partial Thromboplastin Time 47.6 Seconds (21.0-31.0)
[2021-10-09 17:07] LABS: Influenza A virus by PCR Negative (Neg); Influenza B virus by PCR Negative (Neg); RSV by PCR Negative (Neg); SARS CoV2 RNA(COVID-19) InHosp NEGATIVE (Negative)
[2021-10-09] MEDS ORDERED: PANTOprazole 80 MG in DEXTROSE 5% 100 ML IV STA (17:19)
[2021-10-09] MEDS ORDERED: SODIUM CHLORIDE 0.9% 1000ML 500 ML IV ONE (17:19)
[2021-10-09] MEDS ORDERED: PHYTONADIONE 10 MG in SODIUM CHLORIDE 0.9% 50 ML IV ONE (17:19)
--- NOTE | 2021-10-09 17:19 | CT Scan Report ---
CT OF THE ABDOMEN AND PELVIS WITHOUT CONTRAST CLINICAL HISTORY: weak, nausea COMPARISON STUDY: CT of the abdomen and pelvis October 22, 2017. KUB March 18, 2018. TECHNIQUE: Axial images of the abdomen and pelvis were obtained without IV contrast. Images were revi ewed in the axial, sagittal, and coronal planes. Automated exposure control was utilized for the chanda dy. A dose lowering technique was utilized adhering to the principles of ALARA. FINDINGS: Cardiomegaly is incidentally noted. No pneumatosis, free air or portal venous gas is presen t. Evaluation of the abdomen and pelvis is suboptimal on this unenhanced exam. The liver, spleen and pancreas are unremarkable with the exception of a few subcentimeter hypodense hepatic lesions which a re unchanged since prior CT and reflect cysts. There is no biliary or pancreatic ductal dilatation. T here is minimal layering hyperdense material within the gallbladder which could reflect stones or slu dge. There is no pericholecystic fluid. There are numerous water attenuation and hyperdense bilateral renal lesions. These are suboptimally assessed on this unenhanced exam but are similar to prior exam . These favor a combination of simple and hyperdense cysts. Multiple bilateral renal calculi are note d. Small left renal pelvis calculus is noted. There are no ureteral calculi. There is no hydronephros is. Of note, there is marked wall thickening of the ascending colon which extends for approximately 8 cm in length. There is moderate adjacent infiltration and trace fluid. No extraluminal gas is presen t. There are multiple prominent pericolonic lymph nodes which measure up to 7 mm. No evidence for a b owel obstruction. The appendix is normal. No suspicious lesions are identified within visualized skel etal structures. Note is made of a severe L1 compression fracture which is new since CT of September. Mild retropulsion is present. This fracture is not acute. There is also moderate compression fracture of T12 which is new since prior exam but is not acute. Mild compression fractures of T9, T10 and T11 are unchanged. There is trace fluid within the pelvis. Adrenal nodules are unchanged. These are benign. IMPRESSION: 1. Marked wall thickening of the ascending colon which extends for approximately 8 cm in length. This is highly suggestive of neoplasm and likely reflects adenocarcinoma. Lymphoma could appear similar a lthough is statistically less likely. This mass may be ulcerated. Moderate pericolonic infiltration w ith no extraluminal gas. Adjacent prominent pericolonic lymph nodes but could reflect ronal spread of disease. GI consultation for consideration for colonoscopy is recommended. No bowel obstruction. 2. Bilateral nephrolithiasis. No ureteral calculi or hydronephrosis. 3. Innumerable bilateral renal lesions which are suboptimally assessed on this exam but likely reflec t a combination of of simple and hyperdense cysts. 4. Thoracolumbar spine compression fractures, as above. ACT 112: Positive. There are findings on this exam that require communication between the performing entity and the patient following Patient Test Result Information Act ([place] Act 112) guidelines. Electronically signed by: Lex Mitchell M.D. 10/09/2021 5:18 PM
[2021-10-09 17:56] LABS: Appearance Urine Clear (Clear); Bacteria Urine Automated Negative (Negative); Bilirubin Urine Negative (Negative); Blood Urine Trace (Negative); Color Urine Dark Yellow; Epithelial Cell Urine Auto >30 /lpf (0-5); Glucose Urine UA Negative (Negative); Ketones Urine Trace (Negative); Leukocyte Esterase Urine Negative (Negative); Nitrite Urine Negative (Negative); Protein Urine Trace (Negative); Specific Gravity Urine 1.024 (1.000-1.030); Urobilinogen Urine Negative (Negative)
--- NOTE | 2021-10-09 18:21 | History & Physical Report ---
Date of Service October 09, 2021 Assessment & Plan (1) Failure to thrive: Plan: This is multifactorial for numerous causes noted below Will hydrate gently with normal saline, monitor laboratory work including hemoglobin PT/OT evaluation Further treatment as detailed below (2) Colonic mass: Plan: This may be one of the several causes for the patient's anemia, newly discovered ascending colon mass very suspicious for neoplasm Will ask GI to evaluate further recommendations, patient will most likely need a colonoscopy in the very near future, likely not until his coagulopathy is corrected (3) Warfarin-induced coagulopathy: Plan: Patient was given vitamin K 5 mg p.o. x1 at the anticoagulation clinic, a second dose of 5 mg IV x1 was given Will follow INR No further dosing of Coumadin at this time Can use SCDs for DVT prophylaxis but would avoid chemical DVT prophylaxis for now considering bleeding (4) Iron deficiency anemia: Plan: This has been an ongoing problem, patient's iron level is less than 10 Patient is no longer on oral iron but receives iron infusions Will ask hematology to evaluate for recommendations, consider IV iron transfusions here in the hospital (5) Follicular lymphoma: Plan: Longstanding problem since 2013, recommendations per oncology (6) Dementia: Plan: tells me he is under the care of Dr. Coulter for this. Does not seem to be having any acute issues, will continue to monitor (7) Dyslipidemia: Plan: Atorvastatin 10 mg daily (8) Hypertension: Plan: Last blood pressure documented 140/67. Will continue medications as ordered (9) Permanent atrial fibrillation: Plan: Rate controlled, continue medications as ordered with the exception of warfarin which will be held as noted above Plan: I did briefly discuss CODE STATUS, the patient is is emphatic that he wants to be a DNR/DNI which will be ordered History of Present Illness Chief Complaint: Abnormal lab work Primary Care Provider: Vianca Berrios PA-C This is an 86-year-old male with past history of follicular lymphoma, iron deficiency anemia that presents today with abnormal lab work. Patient is very limited historian but his is at bedside who is able to give us much more detail. Patient's tells me that he has been ill over the past few weeks. She notes that he has had a decreased appetite with less p.o. intake. She notes that he has lost weight. He has been sleeping a lot more, including during the day which is unusual for him. She was not aware of any bleeding but he is anemic an d gets regular iron infusions at the cancer center. Does have a history of atrial fibrillation and is typically on warfarin for for anticoagulation. She tells me he usually goes to the anticoagulation clinic at the [facility] every Friday for lab work. According to their documentation, he appeared to be quite ill and he has had no oral intake over the past 5 days. He was noted to be extremely anemic. His INR was noted to be 7.2 and he was given a dose of vitamin K 5 mg p.o. x1. They were instructed to bring the patient to the emergency room for further evaluation. Here in the ER, patient's hemoglobin was slightly higher as it was 7.5 in their facility and 8.1 here. Is an INR was at 6.2 and additional vitamin K IV was ordered by the ER physician. In addition, he was noted to have black stool on rectal. CT scan of the abdomen pelvis was ordered and he was found to have a mass in his ascending colon which is very suspicious for neoplasm but was not known previously. tells me that he has had a colonoscopy which cannot remember exactly when but is between 5 and 10 years ago. She denies any chest pain, shortness of breath, abdominal pain, or other issues. She does note that he may be a little confused when he wakes up which is not unusual though she feels it may have been worsened. She does endorse weight loss but cannot quantify further. Patient is now being admitted for further work-up of this mass along with his anemia and hypercoagulable state. Allergies Allergy/AdvReac Type Severity Reaction Status Date / Time doxycycline Allergy Hives, Rash Verified 10/09/21 15:54 hydrocodone Allergy Unknown Verified 10/09/21 15:54 Home Medications Medication Instructions Recorded Confirmed Type multivitamin 1 tab PO DAILY 06/02/18 10/09/21 History cholecalciferol (vitamin D3) 50 2,000 unit PO QAM cap 04/28/19 10/09/21 History mcg (2,000 unit) capsule acetaminophen 500 mg capsule 1,000 mg PO BID PRN cap 11/18/19 10/09/21 History epoetin jose a [Procrit] 1 ea SUBCUT .COMPLEX 04/19/20 10/09/21 History methocarbamol 500 mg tablet 500 mg PO HS tab 10/30/20 10/09/21 History coenzyme Q10 200 mg capsule (Co 100 mg PO QAM cap 02/22/21 10/09/21 History Q-10) furosemide 20 mg tablet (Lasix) 20 mg PO Q OTHER DAY #45 tab 04/09/21 10/09/21 Rx iron infusion 1 dose IV UD 05/01/21 10/09/21 History metoprolol tartrate 50 mg tablet 50 mg PO BID #180 tab 07/03/21 10/09/21 Rx (Lopressor) atorvastatin 10 mg tablet (Lipitor) 10 mg PO QAM tab 07/11/21 10/09/21 History alendronate 70 mg tablet 70 mg PO WEEKLY #12 tab 09/05/21 10/09/21 Rx alfuzosin 10 mg tablet,extended 10 mg PO QPM 10/09/21 10/09/21 History release 24 hr (Uroxatral) budesonide-formoterol HFA 80 2 puff INHALATION QAM 10/09/21 10/09/21 History mcg-4.5 mcg/actuation aerosol inhaler (Symbicort) diltiazem HCl 240 mg 240 mg PO QAM 10/09/21 10/09/21 History capsule,extended release 24 hr (Cardizem CD) docusate sodium 100 mg capsule 100 mg PO BID 10/09/21 10/09/21 History (Colace) donepezil 10 mg tablet 10 mg PO HS 10/09/21 10/09/21 History mirabegron 50 mg tablet,extended 50 mg PO QAM 10/09/21 10/09/21 History release 24 hr (Myrbetriq) warfarin 3 mg tablet See Rx Instructions PO UD tab 10/09/21 10/09/21 History Past Med/Surg History Medical History (Updated 10/09/21 @ 18:15 by Nicolas Solano DO) Arteriosclerosis of aorta CT 09/[address] 09/2017 stable Chronic diastolic CHF (congestive heart failure) Chronic kidney disease, stage 3 (moderate) Chronic obstructive pulmonary disease Dementia Kidney failure Meningioma Nephrolithiasis Non-Hodgkin lymphoma Permanent atrial fibrillation Secondary hyperparathyroidism Severe sleep apnea CPAP Vitamin D deficiency Surgical History H/O colonoscopy History of knee replacement procedure of left knee 2009 History of knee replacement procedure of right knee 2009 History of removal of Port-a-Cath insertion of [place] on left chest wall 06/13/14 Dr. Magana removal infusaport 06/13/15 Family History Father Pulmonary embolism Stroke Mother Stroke syndrome Hypertension Stroke Unknown Diabetes Heart disease Hypertension Nephrolithiasis Cancer Denies family history of Ovarian cancer Prostate cancer Myocardial infarction Breast cancer Lung cancer Colorectal cancer Social History Smoking Status: Never smoker Tobacco Type: Cigarettes Second Hand Exposure: No; Hx Alcohol Use: No Hx Substance Use: No Preferred Language: [place] Communication Ability: Effective Visual Impairment: Limited Hearing Ability: Hard of Hearing Data Virtualization Consultant Required: No marital status: Current Living Situation: Spouse current occupational status: retired How many Children do You have: 2 Feels Safe at Home: Yes Childhood Exposure to Second-Hand Smoke: Yes caffeine: Yes Dental Care, Regularly: Yes Physical Activity Frequency: Does not Exercise Seatbelt Use: always Sunscreen Use: No Review of Systems Constitutional: + fatigue, + anorexia and + weight loss; no fever, no chills, no weakness and no weight gain Eyes: as per Subjective / HPI Respiratory: no cough, no chest congestion, no dyspnea and no dyspnea on exertion Cardiovascular: no chest pain, no orthopnea, no palpitations, no lightheadedness and no edema Gastrointestinal: no abdominal pain, no nausea, no vomiting, no constipation and no diarrhea/loose stools Musculoskeletal: no back pain, no neck pain, no joint pain, no stiffness and no myalgia Integumentary: no rash Neurologic: + confusion; no gait abnormality, no unsteadiness, no falls and no generalized weakness Hematologic / Lymphatic: + unexplained weight loss; no coagulopathy and no lymphadenopathy Physical Exam Constitutional: + ill appearing (answers some questions appropriately, mostly defers to ); no acute distress Neck: trachea midline, no thyromegaly Respiratory: normal respiratory effort Auscultation: lungs clear to auscultation bilaterally and + rhonchi (very limited exam); no crackles, no rales and no wheezes Cardiovascular: Rate/Rhythm: regular rate and regular rhythm Heart Sounds: normal S1 and normal S2 Gastrointestinal (Abdomen): Inspection/Auscultation: abdomen normal to inspection Percussion/Palpation: abdomen soft; abdomen nontender, no guarding, abdomen not rigid and no hepatosplenomegaly Skin: no rashes, warm and dry Results & Data Results & Data ([facility]) Vital Signs (Past 12 Hours) Vital Signs Temp Pulse Pulse Resp BP BP Pulse Ox 10/09/21 17:56 37.1 C 66 21 140/67 100 10/09/21 17:00 58 L 21 98 10/09/21 16:06 54 L 22 92/73 L 98 10/09/21 15:30 57 L 22 112/59 L 90 10/09/21 15:18 35.4 C L 51 L 16 96/54 L 96 Laboratory Results Laboratory Results WBC 7.90 K/uL (4.8-10.8) 10/09/21 15:35 RBC 3.58 M/uL (4.7-6.1) L 10/09/21 15:35 Hgb 8.1 g/dL (14.0-18.0) L 10/09/21 15:35 Hct 28.2 % (42-52) L 10/09/21 15:35 MCV 78.8 fL (80-100) L 10/09/21 15:35 MCH 22.6 pg (25-34) L 10/09/21 15:35 MCHC 28.7 g/dL (32-36) L 10/09/21 15:35 RDW Std Deviation 55.1 fL (36.4-46.3) H 10/09/21 15:35 RDW Coeff of Abigail 18.9 % (11.5-14.5) H 10/09/21 15:35 Plt Count 364 K/uL (130-400) 10/09/21 15:35 MPV 9.0 fL (7.4-10.4) 10/09/21 15:35 Immature Gran % (Auto) 0.0 % 10/09/21 15:35 Neut % (Auto) 79.6 % 10/09/21 15:35 Lymph % (Auto) 5.9 % 10/09/21 15:35 [place] % (Auto) 12.8 % 10/09/21 15:35 Eos % (Auto) 1.6 % 10/09/21 15:35 Baso % (Auto) 0.1 % 10/09/21 15:35 Neut # (Auto) 6.28 K/uL (1.4-6.5) 10/09/21 15:35 Lymph # (Auto) 0.47 K/uL (1.2-3.4) L 10/09/21 15:35 [place] # (Auto) 1.01 K/uL (0.11-0.59) H 10/09/21 15:35 Eos # (Auto) 0.13 K/uL (0-0.5) 10/09/21 15:35 Baso # (Auto) 0.01 K/uL (0-0.2) 10/09/21 15:35 Immature Gran # (Auto) 0.00 K/uL (0.00-0.02) 10/09/21 15:35 PT 54.1 Seconds (9.0-12.0) H 10/09/21 15:35 INR 6.2 (0.9-1.1) H* 10/09/21 15:35 APTT 47.6 Seconds (21.0-31.0) H* 10/09/21 15:35 PTT Ratio 1.8 10/09/21 15:35 Sodium 137 mmol/L (136-145) 10/09/21 15:35 Potassium 4.9 mmol/L (3.5-5.1) 10/09/21 15:35 Chloride 107 mmol/L (98-107) 10/09/21 15:35 Carbon Dioxide 22 mmol/L (21-32) 10/09/21 15:35 Anion Gap 8 (3-11) 10/09/21 15:35 BUN 33 mg/dl (6-23) H 10/09/21 15:35 Creatinine 1.57 mg/dl (0.6-1.4) H 10/09/21 15:35 Est Cr Clr Drug Dosing Not Reportable 10/09/21 15:35 Est GFR ( Amer) 46.2 ml/min 10/09/21 15:35 Est GFR (Non-Af Amer) 39.9 ml/min 10/09/21 15:35 BUN/Creatinine Ratio 21.0 (10-20) H 10/09/21 15:35 Glucose 99 mg/dl (70-99(Fasting)) 10/09/21 15:35 Calcium 8.6 mg/dl (8.5-10.1) 10/09/21 15:35 Magnesium 2.4 mg/dl (1.7-2.4) 10/09/21 15:35 Total Bilirubin 0.4 mg/dl (0.2-1.0) 10/09/21 15:35 AST 26 U/L (13-39) 10/09/21 15:35 ALT 12 U/L (7-52) 10/09/21 15:35 Alkaline Phosphatase 82 U/L (34-104) 10/09/21 15:35 Troponin I < 0.03 ng/ml (0-0.04) 10/09/21 15:35 Total Protein 6.4 gm/dl (6.0-8.3) 10/09/21 15:35 Albumin 3.3 gm/dl (3.4-5.0) L 10/09/21 15:35 Globulin 3.1 gm/dl (2.5-4.0) 10/09/21 15:35 Albumin/Globulin Ratio 1.1 (0.9-2) 10/09/21 15:35 TSH 2.247 uIu/ml (0.300-4.500) 10/09/21 15:35 Urine Color Dark Yellow 10/09/21 17:30 Urine Appearance Clear (Clear) 10/09/21 17:30 Urine pH 5.0 (4.5-7.5) 10/09/21 17:30 Ur Specific [place] 1.024 (1.000-1.030) 10/09/21 17:30 Urine Protein Trace (Negative) H 10/09/21 17:30 Urine Glucose (UA) Negative (Negative) 10/09/21 17:30 Urine Ketones Trace (Negative) H 10/09/21 17:30 Urine Blood Trace (Negative) H 10/09/21 17:30 Urine Nitrite Negative (Negative) 10/09/21 17:30 Urine Bilirubin Negative (Negative) 10/09/21 17:30 Urine Urobilinogen Negative (Negative) 10/09/21 17:30 Ur Leukocyte Esterase Negative (Negative) 10/09/21 17:30 SARS-CoV-2 (PCR) NEGATIVE (Negative) 10/09/21 16:25 Influenza Type A (PCR) Negative (Neg) 10/09/21 16:25 Influenza Type B (PCR) Negative (Neg) 10/09/21 16:25 RSV (RT-PCR) Negative (Neg) 10/09/21 16:25 Blood Type O Positive 10/09/21 15:35 Antibody Screen NEGATIVE 10/09/21 15:35 Crossmatch See Detail 10/09/21 15:35 Impressions Chest X-Ray 10/09/21 15:56 XR chest 1V portable CLINICAL HISTORY: weakness COMPARISON STUDY: Chest radiograph May 01, 2019. FINDINGS: No pneumothorax or pleural effusion is noted. Cardiomegaly is unchanged. There is no radiographic evidence of pulmonary edema. Linear bibasilar opacities favor atelectasis. There is no consolidation to suggest pneumonia. IMPRESSION: No acute cardiopulmonary findings. Cardiomegaly. ACT 112: Negative or not required by law. Electronically signed by: Lex Mitchell M.D. 10/09/2021 4:33 PM Abdomen/Pelvis CT 10/09/21 16:16 CT OF THE ABDOMEN AND PELVIS WITHOUT CONTRAST CLINICAL HISTORY: weak, nausea COMPARISON STUDY: CT of the abdomen and pelvis October 22, 2017. KUB March 18, 2018. TECHNIQUE: Axial images of the abdomen and pelvis were obtained without IV contrast. Images were reviewed in the axial, sagittal, and coronal planes. Automated exposure control was utilized for the study. A dose lowering technique was utilized adhering to the principles of ALARA. FINDINGS: Cardiomegaly is incidentally noted. No pneumatosis, free air or portal venous gas is present. Evaluation of the abdomen and pelvis is suboptimal on this unenhanced exam. The liver, spleen and pancreas are unremarkable with the exception of a few subcentimeter hypodense hepatic lesions which are unchanged since prior CT and reflect cysts. There is no biliary or pancreatic ductal dilatation. There is minimal layering hyperdense material within the gallbladder which could reflect stones or sludge. There is no pericholecystic fluid. There are numerous water attenuation and hyperdense bilateral renal lesions. These are suboptimally assessed on this unenhanced exam but are similar to prior exam. These favor a combination of simple and hyperdense cysts. Multiple bilateral renal calculi are noted. Small left renal pelvis calculus is noted. There are no ureteral calculi. There is no hydronephrosis. Of note, there is marked wall thickening of the ascending colon which extends for approximately 8 cm in length. There is moderate adjacent infiltration and trace fluid. No extraluminal gas is present. There are multiple prominent pericolonic lymph nodes which measure up to 7 mm. No evidence for a bowel obstruction. The appendix is normal. No suspicious lesions are identified within visualized skeletal structures. Note is made of a severe L1 compression fracture which is new since CT of October 22, 2017. Mild retropulsion is present. This fracture is not acute. There is also moderate compression fracture of T12 which is new since prior exam but is not acute. Mild compression fractures of T9, T10 and T11 are unchanged. There is trace fluid within the pelvis. Adrenal nodules are unchanged. These are benign. IMPRESSION: 1. Marked wall thickening of the ascending colon which extends for approximately 8 cm in length. This is highly suggestive of neoplasm and likely reflects adenocarcinoma. Lymphoma could appear similar although is statistically less likely. This mass may be ulcerated. Moderate pericolonic infiltration with no extraluminal gas. Adjacent prominent pericolonic lymph nodes but could reflect ronal spread of disease. GI consultation for consideration for colonoscopy is recommended. No bowel obstruction. 2. Bilateral nephrolithiasis. No ureteral calculi or hydronephrosis. 3. Innumerable bilateral renal lesions which are suboptimally assessed on this exam but likely reflect a combination of of simple and hyperdense cysts. 4. Thoracolumbar spine compression fractures, as above. ACT 112: Positive. There are findings on this exam that require communication between the performing entity and the patient following Patient Test Result Information Act ([place] Act 112) guidelines. Electronically signed by: Lex Mitchell M.D. 10/09/2021 5:18 PM PG Care Time/CCT Total # of Minutes Spent Total Time Spent with Patient: Total time spent is greater than 50% in coordination of care (as documented) at patient's floor/unit and/or counseling patient: Coding Level of Care Code 20470 Initial Inpt Care Lvl 3 Diagnoses Follicular lymphoma C82.90 Iron deficiency anemia D50.9 Dementia F03.90 Dyslipidemia E78.5 Hypertension I10 Permanent atrial fibrillation I48.2 Colonic mass K63.89 Warfarin-induced coagulopathy D68.32; T45.515A Failure to thrive
[2021-10-09] MEDS ORDERED: ONDANSETRON INJ 2 MG/ML 2 ML VIAL IV PRN (21:01)
[2021-10-09] MEDS ORDERED: ACETAMINOPHEN 325 MG TAB PO PRN (21:01)
[2021-10-09 21:32] LABS: Hematocrit (blood only) 24.1 % (42-52)
[2021-10-09] MEDS: DOCUSATE SODIUM 100 MG CAP PO SCH (21:53)
[2021-10-09] MEDS: METHOCARBAMOL 500 MG TABLET PO SCH (21:53)
[2021-10-09] MEDS: DONEPEZIL HCL 10 MG TAB PO SCH (21:53)
[2021-10-09] MEDS: ALFUZOSIN HCL 10 MG TAB PO SCH (21:53)
[2021-10-09] MEDS: METOPROLOL TARTRATE 50 MG TAB PO SCH (21:54)
[2021-10-09] MEDS: SODIUM CHLORIDE 0.9% 1000ML 1,000 ML IV SCH (22:12)
[2021-10-10] MEDS ORDERED: SODIUM CHLORIDE 0.9% 250 ML IV PRN (00:07)
--- NOTE | 2021-10-10 00:09 | Communication Note ---
Date of Service: October 10, 2021 Transfusing ONE unit only of pRBCs. Hb 8.1->7.0. Asymptomatic.
[2021-10-10 06:17] LABS: Basophils # (auto) 0.01 K/uL (0-0.2); Basophils % (auto) 0.1 %; Eosinophils # (auto) 0.09 K/uL (0-0.5); Eosinophils % (auto) 1.3 %; Hematocrit (blood only) 27.9 % (42-52); Hemoglobin 8.3 g/dL (14.0-18.0); Immature Granulocytes # (auto) 0.01 K/uL (0.00-0.02); Immature Granulocytes % (auto) 0.1 %; Lymphocytes # (auto) 1.18 K/uL (1.2-3.4); Lymphocytes % (auto) 17.5 %; Mean Corpuscular Hemoglobin 23.5 pg (25-34); Mean Corpuscular Hgb Conc 29.7 g/dL (32-36); Mean Platelet Volume 8.8 fL (7.4-10.4); Monocytes # (auto) 0.13 K/uL (0.11-0.59); Monocytes % (auto) 1.9 %; Neutrophils # (auto) 5.34 K/uL (1.4-6.5); Neutrophils % (auto) 79.1 %; Platelet Count 288 K/uL (130-400); RDW Standard Deviation 55.1 fL (36.4-46.3); Red Blood Count 3.53 M/uL (4.7-6.1); White Blood Count 6.76 K/uL (4.8-10.8)
[2021-10-10 06:32] LABS: INR 1.6 (0.9-1.1); Prothrombin Time 15.6 Seconds (9.0-12.0)
[2021-10-10 06:57] LABS: BUN Creatinine Ratio 19.2 (10-20); Calcium 8.1 mg/dl (8.5-10.1); Creatinine Clr Calc Pharmacy 42.2 ml/min; Est GFR (African American) 48.5 ml/min; Est GFR (Non-African American) 41.8 ml/min; Magnesium 2.2 mg/dl (1.7-2.4); Potassium 4.1 mmol/L (3.5-5.1)
--- NOTE | 2021-10-10 08:08 | Hospitalist Progress Note ---
Date of Service October 10, 2021 Assessment & Plan (1) Acute GI bleeding: (2) Weakness: (3) Anemia: (4) Colonic mass: (5) Chronic diastolic CHF (congestive heart failure): (6) Permanent atrial fibrillation: (7) Chronic obstructive pulmonary disease: (8) Severe sleep apnea: (9) Chronic kidney disease, stage 3 (moderate): Plan: 86 yo M Hx iron deficiency anemia, HTN, diastolic CHF, Afib on coumadin, EARLINE, follicular lymphoma, CKD stage III, COPD admitted for symptomatic anemia and failure to thrive, with new colonic mass noted on abdominal imaging. Lower GI bleed, New colonic mass: Presented with complaints of fatigue and worsening anemia. Hemoccult positive in ER. Hgb on admission of 8.1, dropped overnight to 7.0 requiring 1u PRBCs; now stable at 8.1 this afternoon. Serial H/H ordered, transfuse if Hgb <7 or <8 and symptomatic. CTAP showed 8cm thickening of the ascending colon with possible ulceration suggestive of adenocarcinoma vs. lymphoma. Pericolonic lymph nodes were also noted to be enlarged. GI consulted and appreciate recommendations: For colonoscopy tomorrow AM. Clear liquid diet with NPO at midnight; Miralax bowel prep this evening. Hx Afib on Coumadin, supratherapeutic INR: On admission with INR 6.2; reversed to 1.6 with vitamin K PO and IV. Holding Coumadin at this time. ChadsVasc score of 4; risk of restarting in the setting of acute bleeding outweighs benefit at this time. Will continue to evaluate. Continue metoprolol and diltiazem for AFib rate control. Failure to thrive, generalized weakness: Secondary to anemia, decreased appetite/PO intake x5 days, and suspected new cancer as above. PT and OT orders placed on admission for strengthening, as well as to determine functional status for discharge planning. CKD stage III: Baseline creatinine 1.3-1.5; today 1.51. No interventions at this time save for PRBCs this AM. COPD, EARLINE: Continue CPAP qHS. No oxygen requirement at baseline nor on admission. Chronic diastolic CHF: No signs of fluid overload on exam. Holding diuretics in the setting of volume loss from bleeding. Resume if develops clinical signs of fluid overload. Code Status: DNR/DNI FEN: clear liquid diet today, NPO at midnight DVT ppx: holding chemoprophylaxis in the setting of acute bleeding Dispo: Med/Surg with Telemetry Admission and Anticipated Discharge Date Admission Date: October 09, 2021 Supervising Physician Co-Signing Physician Notes I personally examined the patient and verified all rodriguez points of history and exam, discussed case, and agree with decision making with Dr Garcia Feeling okay, off-and-on confused. present at the bedsideanswered all questions to the best my ability and to her satisfaction. Vitals noted, pleasant easily confused no distress. Fatigued appearing. HEENT normocephalic atraumatic mucous membranes moist. Breathing unlabored no accessory muscle use good effort. Skin shows no rashes no pallor or icterus. Neuro without focal deficits. Weakness related to iron deficiency anemia secondary to probably a subacute to chronic GI bleed which is related to newly found colon masstransfused, follow blood counts, colonoscopy tomorrow, planning after based on results, otherwise as above Subjective Patient with some confusion overnight and pulled out an IV, 1:[address] for a few hours due to this this morning. On my interview patient is alert to self, situation, but not to place or date. He reports about 5 days or so of decreased appetite, some mild abdominal pain in lower quadrants, no nausea or vomiting. He has also been feeling weaker and more tired. He denies other recent symptoms such as URI symptoms, fevers. Review of Systems Review of Systems: All systems reviewed & are unremarkable except as noted in HPI & below Constitutional: + fatigue and + malaise; no fever and no chills Respiratory: no cough and no dyspnea Cardiovascular: no chest pain, no palpitations and no edema Gastrointestinal: + abdominal pain and + constipation; no diarrhea/loose stools Physical Exam Constitutional: WD/WN, vitals as above Respiratory: normal respiratory effort, lungs clear to auscultation Cardiovascular: Rate/Rhythm: + irregularly irregular Heart Sounds: no murmur Gastrointestinal (Abdomen): Inspection/Auscultation: abdomen normal to inspection Percussion/Palpation: + abdomen tender (mild in lower quadrants) and abdomen soft; no guarding Skin: no rashes, warm and dry Neurologic: Normal speech No tremor Psychiatric: Orientation: alert and oriented to person Results & Data Results & Data ([facility]) Vital Signs (Past 12 Hours) Vital Signs Temp Pulse Pulse Resp BP BP Pulse Ox 10/10/21 08:07 106 H 18 155/79 H 98 10/10/21 03:21 36.8 C 88 136/83 95 10/10/21 02:43 36.7 C 91 H 24 144/73 H 96 10/10/21 01:43 37.2 C 87 20 110/73 95 10/10/21 01:13 36.8 C 80 22 117/54 L 97 10/10/21 00:58 36.9 C 84 22 113/60 96 10/10/21 00:41 37.1 C 83 20 101/45 L 97 10/09/21 22:41 36.4 C L 10/09/21 21:53 95 H 104/62 10/09/21 21:00 78 20 112/51 L 98 Resident Activity Tracking Resident Involvement: Resident Care Provided Care Provided: Adult Hospital Medicine (1) Anemia Anemia type: unspecified type Qualified Code(s): D64.9 - Anemia, unspecified
[2021-10-10] MEDS: DOCUSATE SODIUM 100 MG CAP PO SCH ×2 (08:15→21:01)
[2021-10-10] MEDS: METOPROLOL TARTRATE 50 MG TAB PO SCH ×2 (08:15→21:00)
[2021-10-10] MEDS ORDERED: NON-FORMULARY MEDICATION (Coenzyme Q10 [Co Q-10] 200 mg capsule) PO SCH (09:00)
[2021-10-10] MEDS: SODIUM CHLORIDE 0.9% 1000ML 1,000 ML IV SCH (09:12)
[2021-10-10] MEDS: ATORVASTATIN 10 MG TAB PO SCH (10:39)
[2021-10-10] MEDS: CHOLECALCIFEROL 1,000 UNITS 25 MCG TAB PO SCH (10:41)
--- NOTE | 2021-10-10 10:42 | Gastrointestinal Consultation ---
Date of Consultation October 10, 2021 Assessment & Plan (1) Abnormal abdominal CT scan: (2) Acute GI bleeding: (3) Iron deficiency anemia: Patient is a 86 y.o. male with abdominal pain, nausea and rectal bleeding in the setting of supratherapeutic INR with CT findings of suspected right colon mass. 1. Agree with reversal of INR. Hold Coumadin. 2. Clear liquid diet today. 3. Split dose MiraLAX bowel preparation this evening. 4. Colonoscopy with Dr. Howard tomorrow for further evaluation. 5. NPO post midnight except sips with medications. 6. Further recommendations pending results of testing. Thank you for allowing us to participate in the care of this patient. If you have any questions or concerns, please do not hesitate to contact us. History of Present Illness Reason for Consultation: colon mass Requesting Physician: Dr. Solano Attending Physician: Vicente Cook DO History of Present Illness Patient is a 86 y.o. male with a history of COPD, CHF, and permanent atrial fibrillation on chronic anticoagulation admitted with weakness, ARLETTE, and suprath erapeutic INR. He has since had his INR reversed and was noted to be 1.6 today. H&H 8.3/27.9. In regard to symptoms, he reports vague intermittent abdominal pains as well as tendency toward constipation. Also endorses occasional blood in stools. Nausea but no vomiting. CT a/p upon arrival demonstrated: "Marked wall thickening of the ascending colon which extends for approximately 8 cm in length. This is highly suggestive of neoplasm and likely reflects adenocarcinoma. Lymphoma could appear similar although is statistically less likely. This mass may be ulcerated. Moderate pericolonic infiltration with no extraluminal gas. Adjacent prominent pericolonic lymph nodes but could reflect ronal spread of disease. GI consultation for consideration for colonoscopy is recommended. No bowel obstruction." Last colonoscopy was performed by Dr. Treadwell in 2009. He was noted to have diverticulosis without any polyposis. As he was 74 at the time, no further surveillance was recommended. Allergies Allergy/AdvReac Type Severity Reaction Status Date / Time doxycycline Allergy Hives, Rash Verified 10/09/21 15:54 hydrocodone Allergy Unknown Verified 10/09/21 15:54 Home Medications Medication Instructions Recorded Confirmed Type multivitamin 1 tab PO DAILY 06/02/18 10/09/21 History cholecalciferol (vitamin D3) 50 2,000 unit PO QAM cap 04/28/19 10/09/21 History mcg (2,000 unit) capsule acetaminophen 500 mg capsule 1,000 mg PO BID PRN cap 11/18/19 10/09/21 History epoetin jose a [Procrit] 1 ea SUBCUT .COMPLEX 04/19/20 10/09/21 History methocarbamol 500 mg tablet 500 mg PO HS tab 10/30/20 10/09/21 History coenzyme Q10 200 mg capsule (Co 100 mg PO QAM cap 02/22/21 10/09/21 History Q-10) furosemide 20 mg tablet (Lasix) 20 mg PO Q OTHER DAY #45 tab 04/09/21 10/09/21 Rx iron infusion 1 dose IV UD 05/01/21 10/09/21 History metoprolol tartrate 50 mg tablet 50 mg PO BID #180 tab 07/03/21 10/09/21 Rx (Lopressor) atorvastatin 10 mg tablet (Lipitor) 10 mg PO QAM tab 07/11/21 10/09/21 History alendronate 70 mg tablet 70 mg PO WEEKLY #12 tab 09/05/21 10/09/21 Rx alfuzosin 10 mg tablet,extended 10 mg PO QPM 10/09/21 10/09/21 History release 24 hr (Uroxatral) budesonide-formoterol HFA 80 2 puff INHALATION QAM 10/09/21 10/09/21 History mcg-4.5 mcg/actuation aerosol inhaler (Symbicort) diltiazem HCl 240 mg 240 mg PO QAM 10/09/21 10/09/21 History capsule,extended release 24 hr (Cardizem CD) docusate sodium 100 mg capsule 100 mg PO BID 10/09/21 10/09/21 History (Colace) donepezil 10 mg tablet 10 mg PO HS 10/09/21 10/09/21 History mirabegron 50 mg tablet,extended 50 mg PO QAM 10/09/21 10/09/21 History release 24 hr (Myrbetriq) warfarin 3 mg tablet See Rx Instructions PO UD tab 10/09/21 10/09/21 History Patient History Medical History Arteriosclerosis of aorta CT 09/[address] 09/2017 stable Chronic diastolic CHF (congestive heart failure) Chronic kidney disease, stage 3 (moderate) Chronic obstructive pulmonary disease Dementia Kidney failure Meningioma Nephrolithiasis Non-Hodgkin lymphoma Permanent atrial fibrillation Secondary hyperparathyroidism Severe sleep apnea CPAP Vitamin D deficiency Surgical History H/O colonoscopy History of knee replacement procedure of left knee 2009 History of knee replacement procedure of right knee 2009 History of removal of Port-a-Cath insertion of [place] on left chest wall 06/13/14 Dr. Magana removal infusaport 06/13/15 Family History Father Pulmonary embolism Stroke Mother Stroke syndrome Hypertension Stroke Unknown Diabetes Heart disease Hypertension Nephrolithiasis Cancer Denies family history of Ovarian cancer Prostate cancer Myocardial infarction Breast cancer Lung cancer Colorectal cancer Social History Smoking Status: Former smoker Tobacco Type: Cigarettes Smoking End Date: 1999; Second Hand Exposure: No; Hx Alcohol Use: No Hx Substance Use: No Preferred Language: Bengali Communication Ability: Effective Visual Impairment: Limited Hearing Ability: Hard of Hearing Plush Finisher Required: No Beliefs That Will Affect Care: None marital status: Current Living Situation: Spouse current occupational status: retired How many Children do You have: 2 Other Information That Helps Us Care for You: No Feels Safe at Home: Yes Safety Concerns: Feels Safe At This Time Childhood Exposure to Second-Hand Smoke: Yes caffeine: Yes Dental Care, Regularly: Yes Physical Activity Frequency: Does not Exercise Seatbelt Use: always Sunscreen Use: No Assistive Devices: Cane, Glasses and Walker Review of Systems Constitutional: as per Subjective / HPI Gastrointestinal: as per Subjective / HPI Physical Exam Constitutional: + obese; no acute distress Eyes: EOM intact bilaterally; no scleral abnormality Neck: normal visual inspection Respiratory: normal respiratory effort Auscultation: lungs clear to auscultation bilaterally Cardiovascular: Rate/Rhythm: + irregularly irregular Gastrointestinal (Abdomen): Inspection/Auscultation: normal bowel sounds Percussion/Palpation: abdomen soft; abdomen nontender Psychiatric: A+Ox3, euthymic affect Results & Data ([facility]) Vital Signs (Past 12 Hours) Vital Signs Temp Pulse Pulse Resp BP BP Pulse Ox 10/10/21 08:07 106 H 18 155/79 H 98 10/10/21 03:21 36.8 C 88 136/83 95 10/10/21 02:43 36.7 C 91 H 24 144/73 H 96 10/10/21 01:43 37.2 C 87 20 110/73 95 10/10/21 01:13 36.8 C 80 22 117/54 L 97 10/10/21 00:58 36.9 C 84 22 113/60 96 10/10/21 00:41 37.1 C 83 20 101/45 L 97 Diagnostic Findings Laboratory Results WBC 6.76 K/uL (4.8-10.8) 10/10/21 05:48 RBC 3.53 M/uL (4.7-6.1) L 10/10/21 05:48 Hgb 8.3 g/dL (14.0-18.0) L 10/10/21 05:48 Hct 27.9 % (42-52) L 10/10/21 05:48 MCV 79.0 fL (80-100) L 10/10/21 05:48 MCH 23.5 pg (25-34) L 10/10/21 05:48 MCHC 29.7 g/dL (32-36) L 10/10/21 05:48 RDW Std Deviation 55.1 fL (36.4-46.3) H 10/10/21 05:48 RDW Coeff of Abigail 19.0 % (11.5-14.5) H 10/10/21 05:48 Plt Count 288 K/uL (130-400) 10/10/21 05:48 MPV 8.8 fL (7.4-10.4) 10/10/21 05:48 Immature Gran % (Auto) 0.1 % 10/10/21 05:48 Neut % (Auto) 79.1 % 10/10/21 05:48 Lymph % (Auto) 17.5 % 10/10/21 05:48 [place] % (Auto) 1.9 % 10/10/21 05:48 Eos % (Auto) 1.3 % 10/10/21 05:48 Baso % (Auto) 0.1 % 10/10/21 05:48 Neut # (Auto) 5.34 K/uL (1.4-6.5) 10/10/21 05:48 Lymph # (Auto) 1.18 K/uL (1.2-3.4) L 10/10/21 05:48 [place] # (Auto) 0.13 K/uL (0.11-0.59) 10/10/21 05:48 Eos # (Auto) 0.09 K/uL (0-0.5) 10/10/21 05:48 Baso # (Auto) 0.01 K/uL (0-0.2) 10/10/21 05:48 Immature Gran # (Auto) 0.01 K/uL (0.00-0.02) 10/10/21 05:48 PT 15.6 Seconds (9.0-12.0) H 10/10/21 05:48 INR 1.6 (0.9-1.1) H 10/10/21 05:48 APTT 47.6 Seconds (21.0-31.0) H* 10/09/21 15:35 PTT Ratio 1.8 10/09/21 15:35 Sodium 139 mmol/L (136-145) 10/10/21 05:48 Potassium 4.1 mmol/L (3.5-5.1) 10/10/21 05:48 Chloride 111 mmol/L (98-107) H 10/10/21 05:48 Carbon Dioxide 23 mmol/L (21-32) 10/10/21 05:48 Anion Gap 5 (3-11) 10/10/21 05:48 BUN 29 mg/dl (6-23) H 10/10/21 05:48 Creatinine 1.51 mg/dl (0.6-1.4) H 10/10/21 05:48 Est Cr Clr Drug Dosing 42.2 ml/min 10/10/21 05:48 Est GFR ( Amer) 48.5 ml/min 10/10/21 05:48 Est GFR (Non-Af Amer) 41.8 ml/min 10/10/21 05:48 BUN/Creatinine Ratio 19.2 (10-20) 10/10/21 05:48 Glucose 92 mg/dl (70-99(Fasting)) 10/10/21 05:48 Calcium 8.1 mg/dl (8.5-10.1) L 10/10/21 05:48 Magnesium 2.2 mg/dl (1.7-2.4) 10/10/21 05:48 Total Bilirubin 0.4 mg/dl (0.2-1.0) 10/09/21 15:35 AST 26 U/L (13-39) 10/09/21 15:35 ALT 12 U/L (7-52) 10/09/21 15:35 Alkaline Phosphatase 82 U/L (34-104) 10/09/21 15:35 Troponin I < 0.03 ng/ml (0-0.04) 10/09/21 15:35 Total Protein 6.4 gm/dl (6.0-8.3) 10/09/21 15:35 Albumin 3.3 gm/dl (3.4-5.0) L 10/09/21 15:35 Globulin 3.1 gm/dl (2.5-4.0) 10/09/21 15:35 Albumin/Globulin Ratio 1.1 (0.9-2) 10/09/21 15:35 TSH 2.247 uIu/ml (0.300-4.500) 10/09/21 15:35 Urine Color Dark Yellow 10/09/21 17:30 Urine Appearance Clear (Clear) 10/09/21 17:30 Urine pH 5.0 (4.5-7.5) 10/09/21 17:30 Ur Specific [place] 1.024 (1.000-1.030) 10/09/21 17:30 Urine Protein Trace (Negative) H 10/09/21 17:30 Urine Glucose (UA) Negative (Negative) 10/09/21 17:30 Urine Ketones Trace (Negative) H 10/09/21 17:30 Urine Blood Trace (Negative) H 10/09/21 17:30 Urine Nitrite Negative (Negative) 10/09/21 17:30 Urine Bilirubin Negative (Negative) 10/09/21 17:30 Urine Urobilinogen Negative (Negative) 10/09/21 17:30 Ur Leukocyte Esterase Negative (Negative) 10/09/21 17:30 Urine WBC (Auto) 1-5 /hpf (0-5) 10/09/21 17:30 Urine RBC (Auto) 5-10 /hpf (0-4) H 10/09/21 17:30 U Hyaline Cast (Auto) 10-30 /lpf (0-5) H 10/09/21 17:30 U Epithel Cells (Auto) >30 /lpf (0-5) H 10/09/21 17:30 Urine Bacteria (Auto) Negative (Negative) 10/09/21 17:30 Ur Renal Epithelial Cell Not Reportable 10/09/21 17:30 Urine Yeast Not Reportable 10/09/21 17:30 SARS-CoV-2 (PCR) NEGATIVE (Negative) 10/09/21 16:25 Influenza Type A (PCR) Negative (Neg) 10/09/21 16:25 Influenza Type B (PCR) Negative (Neg) 10/09/21 16:25 RSV (RT-PCR) Negative (Neg) 10/09/21 16:25 Blood Type O Positive 10/09/21 15:35 Antibody Screen NEGATIVE 10/09/21 15:35 Crossmatch See Detail 10/09/21 15:35 Impressions Chest X-Ray 10/09/21 15:56 XR chest 1V portable CLINICAL HISTORY: weakness COMPARISON STUDY: Chest radiograph May 01, 2019. FINDINGS: No pneumothorax or pleural effusion is noted. Cardiomegaly is unchanged. There is no radiographic evidence of pulmonary edema. Linear bibasilar opacities favor atelectasis. There is no consolidation to suggest pneumonia. IMPRESSION: No acute cardiopulmonary findings. Cardiomegaly. ACT 112: Negative or not required by law. Electronically signed by: Lex Mitchell M.D. 10/09/2021 4:33 PM Abdomen/Pelvis CT 10/09/21 16:16 CT OF THE ABDOMEN AND PELVIS WITHOUT CONTRAST CLINICAL HISTORY: weak, nausea COMPARISON STUDY: CT of the abdomen and pelvis October 22, 2017. KUB March 18, 2018. TECHNIQUE: Axial images of the abdomen and pelvis were obtained without IV contrast. Images were reviewed in the axial, sagittal, and coronal planes. Automated exposure control was utilized for the study. A dose lowering technique was utilized adhering to the principles of ALARA. FINDINGS: Cardiomegaly is incidentally noted. No pneumatosis, free air or portal venous gas is present. Evaluation of the abdomen and pelvis is suboptimal on this unenhanced exam. The liver, spleen and pancreas are unremarkable with the exception of a few subcentimeter hypodense hepatic lesions which are unchanged since prior CT and reflect cysts. There is no biliary or pancreatic ductal dilatation. There is minimal layering hyperdense material within the gallbladder which could reflect stones or sludge. There is no pericholecystic fluid. There are numerous water attenuation and hyperdense bilateral renal lesions. These are suboptimally assessed on this unenhanced exam but are similar to prior exam. These favor a combination of simple and hyperdense cysts. Multiple bilateral renal calculi are noted. Small left renal pelvis calculus is noted. There are no ureteral calculi. There is no hydronephrosis. Of note, there is marked wall thickening of the ascending colon which extends for approximately 8 cm in length. There is moderate adjacent infiltration and trace fluid. No extraluminal gas is present. There are multiple prominent pericolonic lymph nodes which measure up to 7 mm. No evidence for a bowel obstruction. The appendix is normal. No suspicious lesions are identified within visualized skeletal structures. Note is made of a severe L1 compression fracture which is new since CT of October 22, 2017. Mild retropulsion is present. This fracture is not acute. There is also moderate compression fracture of T12 which is new since prior exam but is not acute. Mild compression fractures of T9, T10 and T11 are unchanged. There is trace fluid within the pelvis. Adrenal nodules are unchanged. These are benign. IMPRESSION: 1. Marked wall thickening of the ascending colon which extends for approximately 8 cm in length. This is highly suggestive of neoplasm and likely reflects adenocarcinoma. Lymphoma could appear similar although is statistically less likely. This mass may be ulcerated. Moderate pericolonic infiltration with no extraluminal gas. Adjacent prominent pericolonic lymph nodes but could reflect ronal spread of disease. GI consultation for consideration for colonoscopy is recommended. No bowel obstruction. 2. Bilateral nephrolithiasis. No ureteral calculi or hydronephrosis. 3. Innumerable bilateral renal lesions which are suboptimally assessed on this exam but likely reflect a combination of of simple and hyperdense cysts. 4. Thoracolumbar spine compression fractures, as above. ACT 112: Positive. There are findings on this exam that require communication between the performing entity and the patient following Patient Test Result Information Act ([place] Act 112) guidelines. Electronically signed by: Lex Mitchell M.D. 10/09/2021 5:18 PM PG Care Time/CCT Total # of Minutes Spent Total Time Spent with Patient: Total time spent is greater than 50% in coordination of care (as documented) at patient's floor/unit and/or counseling patient: Coding Level of Care Code 21744 Initial Inpt Care Lvl [address] scan R93.5 Acute GI bleeding K92.2 Iron deficiency anemia D50.9
[2021-10-10] MEDS: dilTIAZem HCL 240 MG CAPCR PO SCH (10:43)
[2021-10-10] MEDS: MULTIVITAMIN TAB PO SCH (10:44)
[2021-10-10] MEDS: FLUTICASONE/VILANTEROL 100/25MCG 14 PUFFS/INHALER INH SCH (10:44)
[2021-10-10] MEDS: MIRABEGRON ER 25 MG TAB PO SCH (10:44)
--- NOTE | 2021-10-10 11:16 | Electrocardiogram Report ---
Test Reason : Blood Pressure : / mmHG Vent. Rate : 058 BPM Atrial Rate : 047 BPM P-R Int : 000 ms QRS Dur : 088 ms QT Int : 402 ms P-R-T Axes : 000 022 -27 degrees QTc Int : 394 ms Poor data quality, interpretation may be adversely affected Atrial fibrillation with slow ventricular response Low voltage QRS Cannot rule out Anterior infarct , age undetermined Nonspecific T wave abnormality Abnormal ECG When compared with ECG of 01-MAY-2019 07:37, Vent. rate has decreased BY 49 BPM QRS voltage has decreased Confirmed by Stephen Colindres ([id number]) on 10/10/2021 11:15:35 AM Referred By: REFERRED SELF Confirmed By:Stephen Colindres
[2021-10-10 12:34] LABS: Hematocrit (blood only) 27.5 % (42-52); Hemoglobin 8.1 g/dL (14.0-18.0)
[2021-10-10 18:05] LABS: Hematocrit (blood only) 27.7 % (42-52); Hemoglobin 8.1 g/dL (14.0-18.0)
[2021-10-10] MEDS: ALFUZOSIN HCL 10 MG TAB PO SCH (21:01)
[2021-10-10] MEDS: DONEPEZIL HCL 10 MG TAB PO SCH (21:01)
[2021-10-10] MEDS: METHOCARBAMOL 500 MG TABLET PO SCH (21:01)
--- NOTE | 2021-10-11 07:29 | Hospitalist Progress Note ---
Date of Service October 11, 2021 Assessment & Plan (1) Acute GI bleeding: (2) Weakness: (3) Anemia: (4) Colonic mass: (5) Chronic diastolic CHF (congestive heart failure): (6) Permanent atrial fibrillation: (7) Chronic obstructive pulmonary disease: (8) Severe sleep apnea: (9) Chronic kidney disease, stage 3 (moderate): Plan: 86 yo M Hx iron deficiency anemia, HTN, diastolic CHF, Afib on coumadin, EARLINE, follicular lymphoma, CKD stage III, COPD admitted for symptomatic anemia and failure to thrive, with new colonic mass noted on abdominal imaging. Lower GI bleed, New colonic mass: Presented with complaints of fatigue and worsening anemia. Hemoccult positive in ER. Hgb on admission of 8.1 -> 7.0 requiring 1u PRBCs; continues to be stable ~7.9. Daily H/H, transfuse if Hgb <7 or <8 and symptomatic. CTAP this admission showed 8cm thickening of the ascending colon with possible ulceration suggestive of adenocarcinoma vs. lymphoma. Pericolonic lymph nodes were also noted to be enlarged. GI consulted and appreciate recommendations: For colonoscopy this afternoon. Further changes to medical plan based on findings. Hx Afib on Coumadin, supratherapeutic INR: On admission with INR 6.2; reversed to 1.6 with vitamin K PO and IV. Holding Coumadin at this time. ChadsVasc score of 4; risk of restarting in the setting of acute bleeding outweighs benefit at this time. Will continue to evaluate. Continue metoprolol and diltiazem for AFib rate control. Failure to thrive, generalized weakness: Secondary to anemia, decreased appetite/PO intake x5 days, and suspected new cancer as above. PT and OT orders placed for strengthening, as well as to determine functional status for discharge planning. CKD stage III: Baseline creatinine 1.3-1.5; at baseline. COPD, EARLINE: Continue CPAP qHS. No oxygen requirement at baseline nor on admission. Chronic diastolic CHF: No signs of fluid overload on exam. Holding diuretics in the setting of volume loss from bleeding. Resume if develops clinical signs of fluid overload. Code Status: DNR/DNI FEN: NPO DVT ppx: holding chemoprophylaxis in the setting of acute bleeding Dispo: Med/Surg with Telemetry Admission and Anticipated Discharge Date Admission Date: October 09, 2021 Supervising Physician Co-Signing Physician Notes I personally examined the patient and verified all rodriguez points of history and exam, discussed case, and agree with decision making with Dr Jose mcnamara - present, updated to the best of my ability. was awake and a little restless earlier Vitals noted, sleeping, nad. HEENT normocephalic atraumatic mucous membranes moist. Breathing unlabored no accessory muscle use good effort. Skin shows no rashes no pallor or icterus. Neuro without focal deficits. Weakness related to iron deficiency anemia secondary to probably a subacute to chronic GI bleed which is related to newly found colon masstransfused, follow blood counts (will transfuse again since he is dropping a little and frequently requires transfusions - ie unlikely to mount enough of a hematopoeitic response himself), discussed colon cancer >>> lymphoma - path pending. discussed overarching treatment plans for both and what impact that might have on his functional status/quality of life - which was largley 's concerns. also discussed possible palliative radiation should the chose to forego more aggressive treatments for rehab after discharge acutely. Subjective Overnight patient was able to tolerate Miralax prep without incident. This AM stools are looser and brown. No blood noted in stools. Jyothi reports some belly pain but no changes from yesterday. No complaints of nausea. Review of Systems Constitutional: + fatigue and + malaise; no fever and no chills Respiratory: no cough and no dyspnea Cardiovascular: no chest pain, no palpitations and no edema Gastrointestinal: + abdominal pain and + diarrhea/loose stools (loose stools, not clear yet); no constipation Physical Exam Constitutional: WD/WN, vitals as above Respiratory: normal respiratory effort, lungs clear to auscultation Cardiovascular: Rate/Rhythm: + irregularly irregular Heart Sounds: no murmur Gastrointestinal (Abdomen): Inspection/Auscultation: abdomen normal to inspection Percussion/Palpation: + abdomen tender (mild in lower quadrants) and abdomen soft; no guarding Skin: no rashes, warm and dry Psychiatric: Orientation: alert and oriented to person Results & Data Results & Data ([facility]) Vital Signs (Past 12 Hours) Vital Signs Temp Pulse Pulse Pulse Resp BP BP 10/11/21 07:21 85 10/11/21 06:52 36.8 C 96 H 20 126/77 10/11/21 03:53 75 10/11/21 02:15 36.5 C 90 20 137/76 10/10/21 21:01 10/10/21 20:27 92 H 20 121/68 Pulse Ox Pulse Ox 10/11/21 07:21 10/11/21 06:52 95 10/11/21 03:53 10/11/21 02:15 95 10/10/21 21:01 97 10/10/21 20:27 98 Resident Activity Tracking Resident Involvement: Resident Care Provided Care Provided: Adult Hospital Medicine (1) Anemia Anemia type: unspecified type Qualified Code(s): D64.9 - Anemia, unspecified
[2021-10-11 07:39] LABS: Basophils # (auto) 0.01 K/uL (0-0.2); Basophils % (auto) 0.2 %; Eosinophils # (auto) 0.14 K/uL (0-0.5); Eosinophils % (auto) 2.2 %; Hemoglobin 7.9 g/dL (14.0-18.0); Immature Granulocytes # (auto) 0.01 K/uL (0.00-0.02); Immature Granulocytes % (auto) 0.2 %; Lymphocytes # (auto) 0.45 K/uL (1.2-3.4); Mean Corpuscular Hemoglobin 23.3 pg (25-34); Mean Corpuscular Hgb Conc 29.3 g/dL (32-36); Mean Corpuscular Volume 79.6 fL (80-100); Mean Platelet Volume 8.7 fL (7.4-10.4); Monocytes # (auto) 0.93 K/uL (0.11-0.59); Monocytes % (auto) 14.4 %; Neutrophils # (auto) 4.93 K/uL (1.4-6.5); Platelet Count 282 K/uL (130-400); RDW Standard Deviation 56.1 fL (36.4-46.3); Red Blood Count 3.39 M/uL (4.7-6.1); White Blood Count 6.47 K/uL (4.8-10.8)
[2021-10-11 08:09] LABS: Anisocytosis Present; Hypochromasia Present; Poikilocytosis Present
[2021-10-11] MEDS: DOCUSATE SODIUM 100 MG CAP PO SCH ×2 (09:09→20:36)
[2021-10-11] MEDS: ATORVASTATIN 10 MG TAB PO SCH (09:09)
[2021-10-11] MEDS: MULTIVITAMIN TAB PO SCH (09:09)
[2021-10-11] MEDS: METOPROLOL TARTRATE 50 MG TAB PO SCH ×2 (09:09→20:36)
[2021-10-11] MEDS: FLUTICASONE/VILANTEROL 100/25MCG 14 PUFFS/INHALER INH SCH (09:09)
[2021-10-11] MEDS: dilTIAZem HCL 240 MG CAPCR PO SCH (09:10)
[2021-10-11] MEDS: CHOLECALCIFEROL 1,000 UNITS 25 MCG TAB PO SCH (09:10)
[2021-10-11] MEDS: MIRABEGRON ER 25 MG TAB PO SCH (09:10)
--- NOTE | 2021-10-11 09:47 | History & Physical Bridge Note ---
Date of Service October 11, 2021 History & Physical Bridge Note I have examined the patient, reviewed the History & Physical and in the interval since the performance of the History & Physical I have noted the following changes of clinical significance: Per nursing, patient completed only 1/2 of the preparation has he spilled the first dose. In doing so, he is still having passage of formed stools. Discussed with Dr. Howard, will proceed with colonoscopy to attempt tissue diagnosis. PE: A&Ox3. Irregularly irregular heart rate/rhythm. Lungs CTA. Abdomen soft, nontender. Hyperactive bowel sounds. A/P: Patient is a 86 y.o. male admitted with rectal bleeding and weakness with findings of suspected ascending colon mass on CT. * NPO for now. * Proceed with colonoscopy by Dr. Howard today. * Further recommendations pending results of testing.
[2021-10-11] MEDS ORDERED: ATROPINE SULFATE 0.1 MG/ML 10ML SYR IV PRN (11:19)
[2021-10-11] MEDS ORDERED: ePHEDrine sulfate 50 MG/ML AMP IV PRN (11:19)
--- NOTE | 2021-10-11 11:19 | Anesthesiology Consultation ---
Date of Service October 11, 2021 Assessment & Plan Chart Review Chart Review: Acceptable Risk for Surgery and Patient NOT seen in Pre Admission Testing Consults Requested none ASA ASA4 Proposed Anesthesia Anesthesia Type: MAC Risk / Benefits Reviewed With: PT / POA / Parent / Guardian, Accepts Plan and Informed Consent Obtained Additional Comments: covid test neg. History Surgery Operation Date: 10/11/21 16:00 Proposed Procedures p Colonoscopy Dr. Lee Howard MD Height/Weight Height: 5 ft 11 in Weight: 94.1 kg Allergies Allergy/AdvReac Type Severity Reaction Status Date / Time doxycycline Allergy Hives, Rash Verified 10/09/21 15:54 hydrocodone Allergy Unknown Verified 10/09/21 15:54 Medications Home Medications Medication Instructions Recorded Confirmed Last Taken multivitamin 1 tab PO DAILY 06/02/18 10/09/21 10/09/21 cholecalciferol (vitamin D3) 50 2,000 unit PO QAM cap 04/28/19 10/09/21 10/09/21 mcg (2,000 unit) capsule acetaminophen 500 mg capsule 1,000 mg PO BID PRN cap 11/18/19 10/09/21 Unknown epoetin jose a [Procrit] 1 ea SUBCUT .COMPLEX 04/19/20 10/09/21 Unknown methocarbamol 500 mg tablet 500 mg PO HS tab 10/30/20 10/09/21 10/09/21 coenzyme Q10 200 mg capsule (Co 100 mg PO QAM cap 02/22/21 10/09/21 10/09/21 Q-10) furosemide 20 mg tablet (Lasix) 20 mg PO Q OTHER DAY #45 tab 04/09/21 10/09/21 10/08/21 iron infusion 1 dose IV UD 05/01/21 10/09/21 Unknown metoprolol tartrate 50 mg tablet 50 mg PO BID #180 tab 07/03/21 10/09/21 10/09/21 (Lopressor) atorvastatin 10 mg tablet (Lipitor) 10 mg PO QAM tab 07/11/21 10/09/21 10/09/21 alendronate 70 mg tablet 70 mg PO WEEKLY #12 tab 09/05/21 10/09/21 10/07/21 alfuzosin 10 mg tablet,extended 10 mg PO QPM 10/09/21 10/09/21 10/08/21 release 24 hr (Uroxatral) budesonide-formoterol HFA 80 2 puff INHALATION QAM 10/09/21 10/09/21 10/09/21 mcg-4.5 mcg/actuation aerosol inhaler (Symbicort) diltiazem HCl 240 mg 240 mg PO QAM 10/09/21 10/09/21 10/09/21 capsule,extended release 24 hr (Cardizem CD) docusate sodium 100 mg capsule 100 mg PO BID 10/09/21 10/09/21 10/09/21 (Colace) donepezil 10 mg tablet 10 mg PO HS 10/09/21 10/09/21 10/08/21 mirabegron 50 mg tablet,extended 50 mg PO QAM 10/09/21 10/09/21 10/09/21 release 24 hr (Myrbetriq) warfarin 3 mg tablet See Rx Instructions PO UD tab 10/09/21 10/09/21 10/08/21 Active Medications Generic Name Dose Route Start Last Admin Trade Name Freq PRN Reason Stop Dose Admin Alfuzosin HCl 10 mg 10/09/21 21:30 10/10/21 21:01 Alfuzosin Hcl 10 Mg Tab PO 11/08/21 21:29 10 mg QPM MELINA Administration Atorvastatin Calcium 10 mg 10/10/21 09:00 10/11/21 09:09 Atorvastatin 10 Mg Tab PO 11/09/21 08:59 10 mg QAM MELINA Administration Diltiazem HCl 240 mg 10/10/21 09:00 10/11/21 09:10 Diltiazem Hcl 240 Mg Capcr PO 11/09/21 08:59 240 mg QAM MELINA Administration Docusate Sodium 100 mg 10/09/21 21:30 10/11/21 09:09 Docusate Sodium 100 Mg Cap PO 11/08/21 21:29 100 mg BID MELINA Administration Donepezil HCl 10 mg 10/09/21 21:30 10/10/21 21:01 Donepezil Hcl 10 Mg Tab PO 11/08/21 21:29 10 mg HS MELINA Administration Fluticasone/Vilanterol 1 puffs 10/10/21 09:00 10/11/21 09:09 Fluticasone/Vilanterol 100/25mcg 14 Puffs/Inhaler INH 11/09/21 08:59 1 puffs DAILY MELINA Administration Methocarbamol 500 mg 10/09/21 21:30 10/10/21 21:01 Methocarbamol 500 Mg Tablet PO 11/08/21 21:29 500 mg HS MELINA Administration Metoprolol Tartrate 50 mg 10/09/21 21:30 10/11/21 09:09 Metoprolol Tartrate 50 Mg Tab PO 11/08/21 21:29 50 mg BID MELINA Administration Mirabegron 50 mg 10/10/21 09:00 10/11/21 09:10 Mirabegron Er 25 Mg Tab PO 11/09/21 08:59 50 mg QAM MELINA Administration Multivitamins 1 tab 10/10/21 09:00 10/11/21 09:09 Multivitamin Tab PO 11/09/21 08:59 1 tab DAILY MELINA Administration Vitamin D 2,000 units 10/10/21 09:00 10/11/21 09:10 Cholecalciferol 1,000 Units 25 Mcg Tab PO 11/09/21 08:59 2,000 units QAM MELINA Administration NPO Date Last Intake of Fluids: 10/11/21 Time Last Intake of Fluids: 02:00 Last Intake of Fluids Comment: sip with meds Date Last Intake of Solids: 10/09/21 Time Last Intake of Solids: 15:00 Past Medical History Medical History Arteriosclerosis of aorta CT 09/[address] 09/2017 stable Chronic diastolic CHF (congestive heart failure) Chronic kidney disease, stage 3 (moderate) Chronic obstructive pulmonary disease Dementia Kidney failure Meningioma Nephrolithiasis Non-Hodgkin lymphoma Permanent atrial fibrillation Secondary hyperparathyroidism Severe sleep apnea CPAP Vitamin D deficiency Exercise / Class Metabolic Activity III < 4 Walking/Shop/Light housework Past Family History Family History Father Pulmonary embolism Stroke Mother Stroke syndrome Hypertension Stroke Unknown Diabetes Heart disease Hypertension Nephrolithiasis Cancer Denies family history of Ovarian cancer Prostate cancer Myocardial infarction Breast cancer Lung cancer Colorectal cancer Past Surgical History Surgical History H/O colonoscopy History of knee replacement procedure of left knee 2008 History of knee replacement procedure of right knee 2008 History of removal of Port-a-Cath insertion of Aport on left chest wall 06/13/14 Dr. Magana removal infusaport 06/13/15 Past Anesthesia History No Hx of Anesthesia Complications and No Family Hx of Anesthesia Complications History of PONV No Hx of PONV and No Hx of Motion Sickness Social History Smoking Status: Former smoker Smoking End Date: 1999 Hx Alcohol Use: No Hx Substance Use: No substance use type: does not use Physical Exam Vital Signs Last Vital Signs Temp 36.6 C 10/11/21 11:01 Pulse 85 10/11/21 11:01 Resp 20 10/11/21 11:01 BP 138/90 10/11/21 11:01 Pulse Ox 98 10/11/21 11:01 Constitutional + obese ENMT Mouth: + dentition abnormality and + poor dentition Thyromental Distance: > or= 3.5 Finger Breadths Mallampati Class: II Neck normal visual inspection and trachea midline; neck extension not limited Respiratory + uses accessory muscles and + audible wheezes Auscultation: + diminished lung sounds Cardiovascular Rate/Rhythm: + abnormal rate (irreg./A Fib) and + abnormal rhythm (irreg. A Fib) Heart Sounds: no murmur Vessels: no carotid bruit Musculoskeletal Spine: normal cervical ROM Extremities: extremities normal to inspection Neurologic moves all extremities Motor/Sensory: no sensory deficit Psychiatric Orientation: alert and oriented x 3 Testing Laboratory Results 10/11/21 06:59 10/10/21 05:48 PT 15.6 Seconds (9.0-12.0) H 10/10/21 05:48 INR 1.6 (0.9-1.1) H 10/10/21 05:48 APTT 47.6 Seconds (21.0-31.0) H* 10/09/21 15:35 Urine Color Dark Yellow 10/09/21 17:30 Urine Appearance Clear (Clear) 10/09/21 17:30 Urine pH 5.0 (4.5-7.5) 10/09/21 17:30 Ur Specific [place] 1.024 (1.000-1.030) 10/09/21 17:30 Urine Protein Trace (Negative) H 10/09/21 17:30 Urine Glucose (UA) Negative (Negative) 10/09/21 17:30 Urine Ketones Trace (Negative) H 10/09/21 17:30 Urine Nitrite Negative (Negative) 10/09/21 17:30 Ur Leukocyte Esterase Negative (Negative) 10/09/21 17:30 Urine WBC (Auto) 1-5 /hpf (0-5) 10/09/21 17:30 Urine RBC (Auto) 5-10 /hpf (0-4) H 10/09/21 17:30 U Hyaline Cast (Auto) 10-30 /lpf (0-5) H 10/09/21 17:30 U Epithel Cells (Auto) >30 /lpf (0-5) H 10/09/21 17:30 Urine Bacteria (Auto) Negative (Negative) 10/09/21 17:30 Blood Type O Positive 10/09/21 15:35 Antibody Screen NEGATIVE 10/09/21 15:35
[2021-10-11] MEDS ORDERED: PROPOFOL IV EMULSION 10 MG/ML 20 ML VIAL IV ONE (12:14)
[2021-10-11] MEDS ORDERED: LIDOCAINE 2% 2 ML VIAL/AMP(20MG/ML) INFIL ONE (12:14)
[2021-10-11] MEDS ORDERED: PHENYLEPHRINE 100MCG/ML 5ML SYR ONE (12:14)
--- NOTE | 2021-10-11 12:21 | GI REPORT ---
Patient Name: Jyothi Kauffman Procedure Date: 10/11/2021 11:46 AM Date of : 1935 Admit Type: Inpatient Age: 86 Gender: Male Attending MD: Ricardo Howard MD Procedure: Colonoscopy Providers: Ricardo Howard MD Referring MD: Referred Self Indications: Abnormal CT of the GI tract Medicines: Monitored Anesthesia Care Complications: No immediate complications. Estimated blood loss: None. Estimated Blood Loss: Estimated blood loss: none. Procedure: Pre-Anesthesia Assessment: - Prior Anticoagulants: The patient has taken no previous anticoagulant or antiplatelet agents. - ASA Grade Assessment: II - A patient with mild systemic disease. After I obtained informed consent, the scope was passed under direct vision. Throughout the procedure, the patient's blood pressure, pulse, and oxygen saturations were monitored continuously. The Colonoscope was introduced through the anus with the intention of advancing to the cecum. The scope was advanced to the ascending colon before the procedure was aborted. Medications were given. The colonoscopy was performed without difficulty. The patient tolerated the procedure well. The quality of the bowel preparation was poor. The colonoscopy was performed without difficulty. The patient tolerated the procedure well. Findings: An infiltrative partially obstructing medium-sized mass was found in the ascending colon. The mass was circumferential. No bleeding was present. Biopsies were taken with a cold forceps for histology. Estimated blood loss: none. Multiple small and large-mouthed diverticula were found in the sigmoid colon and descending colon. Non-bleeding internal hemorrhoids were found. The hemorrhoids were small. Impression: - Preparation of the colon was poor. 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 Biopsied. - Diverticulosis in the sigmoid colon and in the descending colon. - Non-bleeding internal hemorrhoids. Recommendation: - Resume previous diet today. - Return patient to [facility] for ongoing care. - Await pathology results. Ricardo Howard MD 10/11/2021 12:21:14 PM This report has been signed electronically. Note Initiated On: 10/11/2021 11:46 AM Number of Addenda: 0 I attest to the content of the Intraoperative Record and orders documented therein, exceptions below {[id number]}
--- NOTE | 2021-10-11 12:42 | Anesthesiology Progress Note ---
Date of Service October 11, 2021 Anesthesia Post Procedure Vital Signs Vital Signs: Temp Pulse Pulse Pulse Resp BP BP 10/11/21 11:01 36.6 C 85 20 138/90 10/11/21 07:21 85 10/11/21 06:52 36.8 C 96 H 20 126/77 10/11/21 03:53 75 10/11/21 02:15 36.5 C 90 20 137/76 10/10/21 21:01 10/10/21 20:27 92 H 20 121/68 10/10/21 18:38 83 20 128/106 H 10/10/21 15:52 69 18 109/71 Pulse Ox Pulse Ox 10/11/21 11:01 98 10/11/21 07:21 10/11/21 06:52 95 10/11/21 03:53 10/11/21 02:15 95 10/10/21 21:01 97 10/10/21 20:27 98 10/10/21 18:38 97 10/10/21 15:52 94 Transfer of Care Handoff Completed per policy Notes Mental Status: alert / awake / arousable Patient Amnestic to Procedure: Yes Nausea / Vomiting: adequately controlled Pain: adequately controlled Airway Patency, RR, SpO2: stable & adequate BP & HR: stable & adequate Hydration State: stable & adequate Anesthetic Complications: no major complications apparent
--- NOTE | 2021-10-11 19:11 | Billing Data ---
Date of Service October 11, 2021 Coding Level of Care Code 10237 Subseq Hosp Care Lvl 3
[2021-10-11] MEDS ORDERED: SODIUM CHLORIDE 0.9% 250 ML IV PRN (19:12)
[2021-10-11] MEDS: METHOCARBAMOL 500 MG TABLET PO SCH (20:35)
[2021-10-11] MEDS: ALFUZOSIN HCL 10 MG TAB PO SCH (20:36)
[2021-10-11] MEDS: DONEPEZIL HCL 10 MG TAB PO SCH (20:36)
[2021-10-12 09:16] LABS: Basophils # (auto) 0.01 K/uL (0-0.2); Basophils % (auto) 0.1 %; Eosinophils # (auto) 0.12 K/uL (0-0.5); Eosinophils % (auto) 1.5 %; Hematocrit (blood only) 31.9 % (42-52); Hemoglobin 9.3 g/dL (14.0-18.0); Immature Granulocytes # (auto) 0.02 K/uL (0.00-0.02); Immature Granulocytes % (auto) 0.2 %; Lymphocytes # (auto) 0.51 K/uL (1.2-3.4); Lymphocytes % (auto) 6.3 %; Mean Corpuscular Hemoglobin 23.6 pg (25-34); Mean Corpuscular Hgb Conc 29.2 g/dL (32-36); Mean Platelet Volume 8.7 fL (7.4-10.4); Monocytes # (auto) 0.73 K/uL (0.11-0.59); Monocytes % (auto) 9.1 %; Neutrophils # (auto) 6.65 K/uL (1.4-6.5); Neutrophils % (auto) 82.8 %; Platelet Count 267 K/uL (130-400); RDW Coefficient of Variation 18.7 % (11.5-14.5); RDW Standard Deviation 55.7 fL (36.4-46.3); Red Blood Count 3.94 M/uL (4.7-6.1); White Blood Count 8.04 K/uL (4.8-10.8)
[2021-10-12 09:40] LABS: BUN Creatinine Ratio 15.9 (10-20); Calcium 8.3 mg/dl (8.5-10.1); Creatinine Clr Calc Pharmacy 46.5 ml/min; Est GFR (Non-African American) 46.6 ml/min; Potassium 4.3 mmol/L (3.5-5.1)
[2021-10-12] MEDS: MULTIVITAMIN TAB PO SCH (09:44)
[2021-10-12] MEDS: MIRABEGRON ER 25 MG TAB PO SCH (09:44)
[2021-10-12] MEDS: FLUTICASONE/VILANTEROL 100/25MCG 14 PUFFS/INHALER INH SCH (09:44)
[2021-10-12] MEDS: CHOLECALCIFEROL 1,000 UNITS 25 MCG TAB PO SCH (09:44)
[2021-10-12] MEDS: dilTIAZem HCL 240 MG CAPCR PO SCH (09:44)
[2021-10-12] MEDS: METOPROLOL TARTRATE 50 MG TAB PO SCH (09:44)
[2021-10-12] MEDS: ATORVASTATIN 10 MG TAB PO SCH (09:44)
[2021-10-12] MEDS: DOCUSATE SODIUM 100 MG CAP PO SCH (09:46)
--- NOTE | 2021-10-12 13:04 | Surgery Consultation ---
Date of Consultation October 12, 2021 Assessment & Plan (1) Colonic mass: Patient evaluated and agree with above. Will see as outpatient and discuss options once pathology finalized. (2) Weakness: (3) Acute GI bleeding: (4) Anemia: 86 yo male with history of lymphoma in 2014 s/p chemotherapy who presented to ED with failure to thrive, acute anemia, and supratherapeutic INR. He had CT scan which showed ascending colon mass concerning for malignancy. No bowel obstruction. Underwent colonoscopy yesterday and had biopsy which is pending, partially obstructing on colonoscopy but patient is having bowel function and abdomen is soft and nondistended. Hgb stable at 9.3 after 1 unit of PRBCs Abdomen soft, nondistended, active bowel sounds, no peritonitis No complete colonic obstruction, + bowel movement this am Plan: Discussed with Dr. Cook as well as at bedside that we need to obtain biopsy results prior to discussing definitive surgical management. Given that he does not have evidence of bowel obstruction due to the colonic mass, we can proceed with close outpatient follow-up once biopsy is resulted. Will have patient follow-up with Dr. Daniel Smith at [facility]. He will be discharged to [facility] for rehab. Discussed with Dr. Otoole who agrees with above. History of Present Illness Reason for Consultation: Ascending colon mass Requesting Physician: FANNY Valle Attending Physician: Vicente Cook DO History of Present Illness Mr. Kauffman is a pleasant 86 year-old male with past medical history of hypertension, atrial fibrillation, chronic anticoagulation, chronic anemia, follicular lymphoma, chronic kidney disease stage 3, sleep apnea who presented to emergency department with failure to thrive, anemia, and supratherapeutic INR. He was found to have a ascending colon mass on CT scan and underwent colonoscopy yesterday with biopsy still pending. Our services consulted for discussion of possible surgical management. Patient has history of dementia but was present in room and was able to give history. She states in last few months his appetite significantly decreased and she noticed weight loss. No known changes in his bowel habits or blood in stools but states he would complain of abdominal pain but also has chronic bowel issues and thought maybe it was due to that. He has chronic anemia and gets iron transfusions. She noticed in last week he became very weak. Was not eating or drinking much. Allergies Allergy/AdvReac Type Severity Reaction Status Date / Time doxycycline Allergy Hives, Rash Verified 10/09/21 15:54 hydrocodone Allergy Unknown Verified 10/09/21 15:54 Home Medications Medication Instructions Recorded Confirmed Type multivitamin 1 tab PO DAILY 06/02/18 10/09/21 History cholecalciferol (vitamin D3) 50 2,000 unit PO QAM cap 04/28/19 10/09/21 History mcg (2,000 unit) capsule acetaminophen 500 mg capsule 1,000 mg PO BID PRN cap 11/18/19 10/09/21 History epoetin jose a [Procrit] 1 ea SUBCUT .COMPLEX 04/19/20 10/09/21 History methocarbamol 500 mg tablet 500 mg PO HS tab 10/30/20 10/09/21 History coenzyme Q10 200 mg capsule (Co 100 mg PO QAM cap 02/22/21 10/09/21 History Q-10) furosemide 20 mg tablet (Lasix) 20 mg PO Q OTHER DAY #45 tab 04/09/21 10/09/21 Rx iron infusion 1 dose IV UD 05/01/21 10/09/21 History metoprolol tartrate 50 mg tablet 50 mg PO BID #180 tab 07/03/21 10/09/21 Rx (Lopressor) atorvastatin 10 mg tablet (Lipitor) 10 mg PO QAM tab 07/11/21 10/09/21 History alendronate 70 mg tablet 70 mg PO WEEKLY #12 tab 09/05/21 10/09/21 Rx alfuzosin 10 mg tablet,extended 10 mg PO QPM 10/09/21 10/09/21 History release 24 hr (Uroxatral) budesonide-formoterol HFA 80 2 puff INHALATION QAM 10/09/21 10/09/21 History mcg-4.5 mcg/actuation aerosol inhaler (Symbicort) diltiazem HCl 240 mg 240 mg PO QAM 10/09/21 10/09/21 History capsule,extended release 24 hr (Cardizem CD) docusate sodium 100 mg capsule 100 mg PO BID 10/09/21 10/09/21 History (Colace) donepezil 10 mg tablet 10 mg PO HS 10/09/21 10/09/21 History mirabegron 50 mg tablet,extended 50 mg PO QAM 10/09/21 10/09/21 History release 24 hr (Jose) Patient History Medical History Arteriosclerosis of aorta CT 09/[address] 09/2017 stable Chronic diastolic CHF (congestive heart failure) Chronic kidney disease, stage 3 (moderate) Chronic obstructive pulmonary disease Dementia Kidney failure Meningioma Nephrolithiasis Non-Hodgkin lymphoma Permanent atrial fibrillation Secondary hyperparathyroidism Severe sleep apnea CPAP Vitamin D deficiency Surgical History H/O colonoscopy History of knee replacement procedure of left knee 2008 History of knee replacement procedure of right knee 2008 History of removal of Port-a-Cath insertion of Aport on left chest wall 06/13/14 Dr. Magana removal infusaport 06/13/15 Family History Father Pulmonary embolism Stroke Mother Stroke syndrome Hypertension Stroke Unknown Diabetes Heart disease Hypertension Nephrolithiasis Cancer Denies family history of Ovarian cancer Prostate cancer Myocardial infarction Breast cancer Lung cancer Colorectal cancer Social History Smoking Status: Former smoker Tobacco Type: Cigarettes Second Hand Exposure: No; Hx Alcohol Use: No Hx Substance Use: No Preferred Language: [place] Communication Ability: Effective Visual Impairment: Limited Hearing Ability: Hard of Hearing Crew Attendant Required: No Beliefs That Will Affect Care: None marital status: Current Living Situation: Spouse current occupational status: retired How many Children do You have: 2 Feels Safe at Home: Yes Childhood Exposure to Second-Hand Smoke: Yes caffeine: Yes Dental Care, Regularly: Yes Physical Activity Frequency: Does not Exercise Seatbelt Use: always Sunscreen Use: No Assistive Devices: None Review of Systems Review of Systems: All systems reviewed & are unremarkable except as noted in HPI & below Physical Exam Constitutional: comfortable and + overweight; no acute distress, not ill appearing and not disheveled Respiratory: normal respiratory effort; no respiratory distress and no retractions Gastrointestinal (Abdomen): Inspection/Auscultation: abdomen normal to inspection and normal bowel sounds; abdomen not distended Percussion/Palpation: + abdomen tender (RLQ) and abdomen soft; no guarding and abdomen not rigid Skin: no rashes, warm and dry Psychiatric: Orientation: alert and cooperative; + not oriented x 3 Eye Contact: + poor eye contact (sleeping most of time talking to , did not open eyes during exam) Results & Data ([facility]) Vital Signs (Past 12 Hours) Vital Signs Temp Pulse Pulse Resp BP BP BP 10/12/21 12:25 36.7 C 78 18 149/83 H 10/12/21 08:11 36.8 C 93 H 19 135/83 10/12/21 07:48 89 10/12/21 02:52 37.1 C 79 18 119/69 10/12/21 02:05 37 C 77 16 128/67 Pulse Ox 10/12/21 12:25 96 10/12/21 08:11 97 10/12/21 07:48 10/12/21 02:52 94 10/12/21 02:05 93 Laboratory Results 10/12/21 10/12/21 10/09/21 Range/Units 08:56 08:56 15:35 WBC 8.04 (4.8-10.8) K/uL RBC 3.94 L (4.7-6.1) M/uL Hgb 9.3 L (14.0-18.0) g/dL Hct 31.9 L (42-52) % MCV 81.0 (80-100) fL MCH 23.6 L (25-34) pg MCHC 29.2 L (32-36) g/dL RDW Std Deviation 55.7 H (36.4-46.3) fL RDW Coeff of Abigail 18.7 H (11.5-14.5) % Plt Count 267 (130-400) K/uL MPV 8.7 (7.4-10.4) fL Immature Gran % (Auto) 0.2 % Neut % (Auto) 82.8 % Lymph % (Auto) 6.3 % [place] % (Auto) 9.1 % Eos % (Auto) 1.5 % Baso % (Auto) 0.1 % Neut # (Auto) 6.65 H (1.4-6.5) K/uL Lymph # (Auto) 0.51 L (1.2-3.4) K/uL [place] # (Auto) 0.73 H (0.11-0.59) K/uL Eos # (Auto) 0.12 (0-0.5) K/uL Baso # (Auto) 0.01 (0-0.2) K/uL Immature Gran # (Auto) 0.02 (0.00-0.02) K/uL Sodium 140 (136-145) mmol/L Potassium 4.3 (3.5-5.1) mmol/L Chloride 113 H (98-107) mmol/L Carbon Dioxide 19 L (21-32) mmol/L Anion Gap 8 (3-11) BUN 22 (6-23) mg/dl Creatinine 1.38 (0.6-1.4) mg/dl Est Cr Clr Drug Dosing 46.5 ml/min Est GFR ( Amer) 54.0 ml/min Est GFR (Non-Af Amer) 46.6 ml/min BUN/Creatinine Ratio 15.9 (10-20) Glucose 85 (70-99(Fasting)) mg/dl Calcium 8.3 L (8.5-10.1) mg/dl Blood Type O Positive Antibody Screen NEGATIVE Crossmatch See Detail Diagnostic Findings CT OF THE ABDOMEN AND PELVIS WITHOUT CONTRAST CLINICAL HISTORY: weak, nausea COMPARISON STUDY: CT of the abdomen and pelvis October 22, 2017. KUB March 18, 2018. TECHNIQUE: Axial images of the abdomen and pelvis were obtained without IV contrast. Images were reviewed in the axial, sagittal, and coronal planes. Automated exposure control was utilized for the study. A dose lowering technique was utilized adhering to the principles of ALARA. FINDINGS: Cardiomegaly is incidentally noted. No pneumatosis, free air or portal venous gas is present. Evaluation of the abdomen and pelvis is suboptimal on this unenhanced exam. The liver, spleen and pancreas are unremarkable with the exception of a few subcentimeter hypodense hepatic lesions which are unchanged since prior CT and reflect cysts. There is no biliary or pancreatic ductal dilatation. There is minimal layering hyperdense material within the gallbladder which could reflect stones or sludge. There is no pericholecystic fluid. There are numerous water attenuation and hyperdense bilateral renal lesions. These are suboptimally assessed on this unenhanced exam but are similar to prior exam. These favor a combination of simple and hyperdense cysts. Multiple bilateral renal calculi are noted. Small left renal pelvis calculus is noted. There are no ureteral calculi. There is no hydronephrosis. Of note, there is marked wall thickening of the ascending colon which extends for approximately 8 cm in length. There is moderate adjacent infiltration and trace fluid. No extraluminal gas is present. There are multiple prominent pericolonic lymph nodes which measure up to 7 mm. No evidence for a bowel obstruction. The appendix is normal. No suspicious lesions are identified within visualized skeletal structures. Note is made of a severe L1 compression fracture which is new since CT of October 22, 2017. Mild retropulsion is present. This fracture is not acute. There is also moderate compression fracture of T12 which is new since prior exam but is not acute. Mild compression fractures of T9, T10 and T11 are unchanged. There is trace fluid within the pelvis. Adrenal nodules are unchanged. These are benign. IMPRESSION: 1. Marked wall thickening of the ascending colon which extends for approximately 8 cm in length. This is highly suggestive of neoplasm and likely reflects adenocarcinoma. Lymphoma could appear similar although is statistically less likely. This mass may be ulcerated. Moderate pericolonic infiltration with no extraluminal gas. Adjacent prominent pericolonic lymph nodes but could reflect ronal spread of disease. GI consultation for consideration for colonoscopy is recommended. No bowel obstruction. 2. Bilateral nephrolithiasis. No ureteral calculi or hydronephrosis. 3. Innumerable bilateral renal lesions which are suboptimally assessed on this exam but likely reflect a combination of of simple and hyperdense cysts. 4. Thoracolumbar spine compression fractures, as above. (1) Anemia Anemia type: unspecified type Qualified Code(s): D64.9 - Anemia, unspecified
--- NOTE | 2021-10-12 16:08 | Discharge Summary ---
Date of Service October 12, 2021 Admission HPI Per Admitting Provider This is an 86-year-old male with past history of follicular lymphoma, iron deficiency anemia that presents today with abnormal lab work. Patient is very limited historian but his is at bedside who is able to give us much more detail. Patient's tells me that he has been ill over the past few weeks. She notes that he has had a decreased appetite with less p.o. intake. She notes that he has lost weight. He has been sleeping a lot more, including during the day which is unusual for him. She was not aware of any bleeding but he is anemic and gets regular iron infusions at the [facility]. Does have a history of atrial fibrillation and is typically on warfarin for for anticoagulation. She tells me he usually goes to the anticoagulation clinic at the [facility] every Friday for lab work. According to their documentation, he appeared to be quite ill and he has had no oral intake over the past 5 days. He was noted to be extremely anemic. His INR was noted to be 7.2 and he was given a dose of vitamin K 5 mg p.o. x1. They were instructed to bring the patient to the emergency room for further evaluation. Here in the ER, patient's hemoglobin was slightly higher as it was 7.5 in their facility and 8.1 here. Is an INR was at 6.2 and additional vitamin K IV was ordered by the ER physician. In addition, he was noted to have black stool on rectal. CT scan of the abdomen pelvis was ordered and he was found to have a mass in his ascending colon which is very suspicious for neoplasm but was not known previously. tells me that he has had a colonoscopy which cannot remember exactly when but is between 5 and 10 years ago. She denies any chest pain, shortness of breath, abdominal pain, or other issues. She does note that he may be a little confused when he wakes up which is not unusual though she feels it may have been worsened. She does endorse weight loss but cannot quantify further. Patient is now being admitted for further work-up of this mass along with his anemia and hypercoagulable state. Principal Diagnosis new dx colon cancer - pathology pending (anticipate results week of 10/15) Discharge Exam awake but confused - as has been his norm - nad. heent nc at mmm breathing unlabored no accessory muscles good effort skin no rashes no pallor or icterus neuro no focal deficits Discharge Data Allergies Allergy/AdvReac Type Severity Reaction Status Date / Time doxycycline Allergy Hives, Rash Verified 10/09/21 15:54 hydrocodone Allergy Unknown Verified 10/09/21 15:54 Consultations 10/09/21 17:24 ED Decision to Admit Stat 10/09/21 21:01 Consult Gastroenterology Routine 10/12/21 10:07 Consult General Surgery Routine Procedures Performed Operation Date: 10/11/21 16:00 Actual Procedures p Colonoscopy Biopsy Cytology - Ricardo Howard MD Ordered Studies 10/09/21 16:16 CT abd pelvis wo con Stat Hospital Course (1) Acute GI bleeding: (2) Weakness: (3) Anemia: (4) Colonic mass: (5) Chronic diastolic CHF (congestive heart failure): (6) Permanent atrial fibrillation: (7) Chronic obstructive pulmonary disease: (8) Severe sleep apnea: (9) Chronic kidney disease, stage 3 (moderate): 86 yo M Hx iron deficiency anemia, HTN, diastolic CHF, Afib on coumadin, EARLINE, follicular lymphoma, CKD stage III, COPD admitted for symptomatic anemia and failure to thrive, with new colonic mass noted on abdominal imaging. Lower GI bleed, New colonic mass: Presented with complaints of fatigue and worsening anemia. Hemoccult positive in ER. Anemia required total of 2 units PRBC during admission - was a combination of blood loss from colon mass/coumadin coagulopathy and also chronic from marrow/hx of lymphoma/etc - given that he's also required several transfusions as an outpt through the last year ---> yesterday discusisons w : discussed colon cancer >>> lymphoma - path pending. discussed overarching treatment plans for both and what impact that might have on his functional status/quality of life - which was largely 's concerns. also discussed possible palliative radiation should the chose to forego more aggressive treatments. outpt f/u after pathology back to discuss options and plans further (main discussions should be w PCP, although also will be scheduled w dr smith [facility] so that plan/options can be discussed as detailed as possible anemia -mutlifactorial - requires frequent transfusions - would check CBC 1-2 times per week and treat accordingly Hx Afib on Coumadin, supratherapeutic INR: On admission with INR 6.2; reversed and bleeding clinically appears to have stopped Holding Coumadin at this time. ChadsVasc score of 4; risk of restarting in the setting of acute bleeding outweighs benefit at this time. Periodically re-evaluate this depending on progress w colon mass - if appearing safe to do so at some point down the road would consider resuming anticoagulation - but does not appear at all safe to do so at this time given that nothing has yet changed in the situation with the mass. Continue metoprolol and diltiazem for AFib rate control. Failure to thrive, generalized weakness: -multifactorial. long decline related to dementia, chronic conditions (after discussions w ), and acute worsening likely related to anemia and colon mass CKD stage III: -creatinine around baseline COPD, EARLINE: Continue CPAP qHS. Chronic diastolic CHF: -compensated, follow Code Status: DNR/DNI FEN: NPO DVT ppx: holding chemoprophylaxis in the setting of acute bleeding Dispo: rehab Total Time Total Time Spent Total Time Spent (In Minutes): <30 Discharge Plan Discharge Items Patient Disposition: Transfer Inpatient Rehab Fac Reason For Visit: ANEMIA, FAILURE TO THRIVE Discharge Diagnosis: anemia - related to colon cancer Condition on Discharge: Fair Activity: Resume your previous activity Activity Comment: per therapy recommendations at rehab Non-emergency contact: Primary Care Provider and Oncologist Call non-emergency contact if: you have any medication questions and your symptoms worsen Follow-up/Referrals: Vianca Berrios PA-C [Primary Care Provider] - Daniel Smith MD [Physician] - 10/24/21 1:15 pm (Follow-up with Daniel Smith on October 24 at 1:15 pm for surgical consultation after colon mass biopsy results) Diet: Regular Addtl Attending Provider Instructions: anemia -Your blood counts were low this time partly because of the chronic problems, but it appears it was also accentuated by: Blood loss from what appears to be a colon cancer -We will ask him to continue to follow your blood counts at [facility] (probably about twice a week) and set up further transfusions if needed -For now, we should have your Coumadin on hold (see below under atrial fibrillation) Colon cancer -As we discussed, unfortunately the mass does look most consistent with a colon cancer. The pathology report on the biopsy should be back at some point next weekthen we will really be able to better outline what treatment options might be available. As we discussed at length, given the rest of your medical conditions, the discussions should focus as much on what you feel "should" be done as much as or more than what "can" be done. Ultimately whether it is a colon cancer arising from the colon (most likely) or a recurrence of lymphoma (less likely) would change what the potential courses of treatment would beso it is too soon to truly be making the hard decisions, but we definitely want you to be thinking/talking with family/praying so that once we have more concrete potentials for correct course of action, you are able to think through what you feel would be best for you -If you are to opt against any kind of aggressive treatment, it would also be very worthwhile to talk with the radiation oncology teama colon mass causing obstruction could really be fairly miserable as far as pain and nauseaand its possible that radiation treatment, while not able to cure the cancer, could possibly help prevent or alleviate obstruction (bowel blockage). Atrial fibrillation -Of course, you have been on the Coumadin because atrial fibrillation does increase your risk of stroke. That said, when someone has active bleeding from a colon masslike what is going on with you right nowit is safe for her to at least temporarily have the blood thinners "on the shelf". This does raise the risk of stroke some, but for most people its not really a "time bomb" as most people have a risk of about 5% chance of having a stroke and a given year if their A. fib was not treated with blood thinners. To that end, while I cannot promise that there could not be a stroke while you are off the blood thinner, we really need to treat what is actively happeningas it relates to the mass/bleedingand then resume the blood thinner if it appears it is safe to do so down the road Pending Studies at Discharge: Yes (colon biopsy pathology) Stand-Alone Forms: My [facility] Skilled Items Patient informed of condition?: Yes DNR: Yes Discharge Level of Care: Acute rehab Communicable Disease: No Discharge Prognosis: Stable Lines: None Urinary Catheter: No Medications and DC Order Prescriptions: Continued acetaminophen 500 mg capsule 1,000 mg PO BID PRN (Reason: pain) RF: 0 multivitamin Tablet 1 tab PO DAILY RF: 0 cholecalciferol (vitamin D3) 2,000 unit capsule 2,000 unit PO QAM RF: 0 furosemide [Lasix] 20 mg tablet 20 mg PO Q OTHER DAY Qty: 45 RF: 3 metoprolol tartrate [Lopressor] 50 mg tablet 50 mg PO BID Qty: 180 RF: 3 alendronate 70 mg tablet 70 mg PO WEEKLY Qty: 12 RF: 3 methocarbamol 500 mg tablet 500 mg PO HS RF: 0 epoetin jose a 1 ea subcut .COMPLEX RF: 0 iron infusion 1 dose IV UD RF: 0 atorvastatin [Lipitor] 10 mg tablet 10 mg PO QAM RF: 0 coenzyme Q10 [Co Q-10] 200 mg capsule 100 mg PO QAM RF: 0 donepezil 10 mg tablet 10 mg PO HS RF: 0 Myrbetriq 50 mg tablet extended release 24 hr 50 mg PO QAM RF: 0 diltiazem HCl [Cardizem CD] 240 mg capsule,extended release 24hr 240 mg PO QAM RF: 0 alfuzosin [Uroxatral] 10 mg tablet extended release 24 hr 10 mg PO QPM RF: 0 budesonide-formoterol [Symbicort] 80-4.5 mcg/actuation HFA aerosol inhaler 2 puff Inhalation QAM RF: 0 docusate sodium [Colace] 100 mg Capsule 100 mg PO BID RF: 0 Discontinued warfarin 3 mg tablet See Rx Instructions PO UD RF: 0 Discharge Orders: Discharge Order (Routine); Ordered 10/12/21 Ordered By: Vicente Cook Admission Data Admit Date/Time: 10/09/21 18:24 Attending Provider: Vicente Cook Admit Provider: Nicolas Solano Primary Care Provider: Vianca Berrios Other Providers: Nicolas Solano ; Yimi Aguilar ; [facility] ; Aleksandr Otoole Coding Level of Care Code D/C DAY MANAGEMENT <30 MINS Diagnoses Acute GI bleeding K92.2 Weakness R53.1 Anemia D64.9 Anemia type: unspecified type Colonic mass K63.89 Chronic diastolic CHF (congestive heart failure) I50.32 Permanent atrial fibrillation I48.2 Chronic obstructive pulmonary disease J44.9 Severe sleep apnea G47.30 Chronic kidney disease, stage 3 (moderate) N18.3
[2021-10-14] MEDS ORDERED: ALENDRONATE SODIUM 70 MG TAB PO SCH (06:30)
== END 2021-10-12 17:58 | DRG 375 ==
LOC: ED 15:13 → SUATTDRO 18:24 → EDINP 18:24 → 2N 10-11 02:31